=== PATIENT | male | born 1995 | race American Indian/Alaskan Native ===

== ENCOUNTER 2017-08-14 22:51 | Inpatient (IN) | payer MEDICAID ==
[2017-08-14] MEDS ORDERED: Naloxone 0.4 mg/ml Inj (Adult) ONE (23:11)
[2017-08-14] MEDS ORDERED: Propofol 10 mg/ml 1,000 MG/100 ML VIAL ONE (23:27)
[2017-08-14 23:30] LABS: BASO # 0.1 K/uL (0.0-0.2); BASO % 0.4 % (0.0-2.0); EOS # 0.1 K/uL (0.0-0.7); EOS % 0.5 % (0.0-4.0); HEMOGLOBIN 13.9 g/dL (12.0-18.0); LYMPH # 1.4 K/uL (1.0-4.3); LYMPH % 8.9 % (20.0-40.0); MEAN CELL VOLUME 86.9 fL (80.0-94.0); MEAN CORPUSCULAR HEMOGLOBIN 28.7 pg (27.0-31.0); MEAN PLATELET VOLUME 7.8 fL (7.2-11.7); MONO # 0.4 K/uL (0.0-0.8); MONO % 2.7 % (0.0-10.0); NEUT # 13.9 K/uL (1.8-7.0); NEUT % 87.5 % (50.0-75.0); PLATELET COUNT 272 K/uL (130-400); RBC 4.85 Mil/uL (4.40-5.90); RED CELL DISTRIBUTION WIDTH 13.7 % (11.5-14.5); WHITE BLOOD COUNT 15.9 K/uL (4.8-10.8)
[2017-08-14] MEDS ORDERED: Piperacill/Tazo 3.375gm in Dex 3.375 GM/50 ML BAG IVPB STA (23:34)
[2017-08-14] MEDS ORDERED: Vancomycin 1 gm/NS 200 ml 1 GM/200 ML BAG IVPB STA (23:34)
[2017-08-14 23:38] LABS: INR 1.1; PROTHROMBIN TIME 12.1 SECONDS (9.7-12.2)
--- NOTE | 2017-08-14 23:39 | C.PDOC ---
History Of Present Illness 21 y/o male with a past medical history of substance abuse presents via EMS, found at home in respiratory distress. Family found patient foaming at the mouth at home. Per family patient has a history of opiate abuse. Narcan given without success. Patient appears to be hypoxic, tachypnic, and agitated on arrival. Minimal history provided. Patient intubated upon arrival. Time Seen by Provider: 08/14/17 23:02 Chief Complaint (Nursing): Respiratory Distress History Per: Patient History/Exam Limitations: clinical condition (in respiratory distress) Onset/Duration Of Symptoms: Mins Current Symptoms Are (Timing): Still Present Additional History Per: Family Past Medical History Reviewed: Historical Data, Nursing Documentation, Vital Signs Vital Signs: Last Vital Signs Temp 99.0 F 08/16/17 16:00 Pulse 72 08/17/17 09:00 Resp 21 08/17/17 09:00 BP 127/61 08/17/17 08:05 Pulse Ox 100 08/17/17 09:00 - Medical History Other PMH: Substance abuse Family History: States: No Known Family Hx - Social History Hx Substance Use: Yes (opiate abuse) Review Of Systems Review Of Systems: ROS cannot be obtained secondary to pt's inabilty to answer questions. Physical Exam - Physical Exam Appears: In Acute Distress, Other (Tachypnic, ill-appearing) Skin: Warm, Dry Head: Atraumatic, Normacephalic Eye(s): bilateral: PERRL, EOMI Nose: Normal Neck: Normal ROM, Supple Chest: Symmetrical Cardiovascular: Rhythm Regular Respiratory: Other (Coarse breath sounds bilaterally) Gastrointestinal/Abdominal: Soft, No Tenderness, No Distention Extremity: Normal ROM, No Tenderness, Other (Right ankle: wound w/ purulent drainage) ED Course And Treatment - Laboratory Results Result Diagrams: 08/17/17 01:44 08/17/17 01:44 ECG: Interpreted By Me, Viewed By Me ECG Rhythm: Sinus Tachycardia (at 102) O2 Sat by Pulse Oximetry: 65 Pulse Ox Interpretation: Abnormal - Radiology CXR: Interpreted by Me CXR Interpretation: Yes: Infiltrates Critical Care Time - Critical Care Note Total Time (in mins): 45 Documented critical care: time excludes all time spent performing seperately billable procedures. Medical Decision Making Medical Decision Making: Pt intubated on arrival. ro sepsis, overdose, tox - labs imaging pending Time: 23:03 Initial Plan: * EKG * VBG * Acetaminophen * Alcohol serum * Urine drug screen * Salicylate * Lipase * CMP * Troponin I * Pro-BNP * CBC * PTT * Prothrombin time * Chest x-ray * IV zosyn and vancomcin initiated * X-rays of right ankle and tib/fib pending 00:00 Discussed case w/ Dr. Hardy and dr michael youth leader on-call, patient admitted to ICU for respiratory failure, overdose, pneumonia, and infected leg wound. pt with large pna. antibiobtics dosed code sepsis called. Disposition Discussed With Dr.: Aniceto Hardy Doctor Will See Patient In The: Hospital Counseled Patient/Family Regarding: Studies Performed, Diagnosis - Disposition Disposition: HOSPITALIZED Disposition Time: 00:04 Condition: CRITICAL - Clinical Impression Clinical Impression: Respiratory failure, Overdose, Pneumonia - Scribe Statement The provider has reviewed the documentation as recorded by the Nica Turk Provider Attestation: All medical record entries made by the Candiceibjimbo were at my direction and personally dictated by me. I have reviewed the chart and agree that the record accurately reflects my personal performance of the history, physical exam, medical decision making, and the department course for this patient. I have also personally directed, reviewed, and agree with the discharge instructions and disposition. Decision To Admit - Pt Status Changed To: Hospital Disposition Of: Inpatient - Admit Certification Admit to Inpatient:: After my assessment, the patient will require hospitalization for at least two midnights. This is because of the severity of symptoms shown, intensity of services needed, and/or the medical risk in this patient being treated as an outpatient. - InPatient: Physician Admission Certification: I certify that this patient requires 2 or more midnights of care for the following reason:: resp failure intubated - . Bed Request Type: ICU Admitting Physician: Aniceto Hardy Patient Diagnosis: Respiratory failure, Overdose, Pneumonia
[2017-08-14 23:42] LABS: ACETAMINOPHEN < 10.0 ug/mL (10.0-30.0); SALICYLATE < 1.0 mg/dL 1
[2017-08-14 23:44] LABS: ALB/GLOB RATIO 0.9 (1.0-2.1); ALBUMIN 3.9 g/dL (3.5-5.0); ALT/SGPT 46 U/L (21-72); AST/SGOT 70 U/L (17-59); BLOOD UREA NITROGEN 16 mg/dL (9-20); CALCIUM 8.3 mg/dl (8.6-10.4); GFR AFRICAN-AMERICAN > 60; GFR NON-AFRICAN AMERICAN 54; LIPASE 28 U/L (23-300)
[2017-08-14 23:48] LABS: VENOUS BLOOD GAS BASE EXCESS -0.5 mmol/L (0.0-2.0); VENOUS BLOOD GAS PCO2 86 mmHg (40-60); VENOUS BLOOD GAS PO2 16 mm/Hg (30-55); VENOUS BLOOD PH 7.16 (7.32-7.43)
[2017-08-14] MEDS ORDERED: Sodium Chloride 0.9% 1,000 ML IV ONE (23:48)
[2017-08-14 23:55] LABS: BANDS 8 % (0-2); LYMPHOCYTE 10 % (20-40); MONOCYTE 3 % (0-10); NEUTROPHIL 79 % (50-75); TOTAL CELLS COUNTED 100
[2017-08-14 23:56] LABS: PLATELET ESTIMATE NORMAL (NORMAL)
[2017-08-15 00:03] LABS: BARBITURATES, UR NEGATIVE (NEGATIVE)
[2017-08-15 00:09] LABS: BENZODIAZEPINES, UR NEGATIVE (NEGATIVE)
[2017-08-15 00:14] LABS: SQUAMOUS EPITHIAL 9 /hpf (0-5); URINE BILIRUBIN NEGATIVE (NEGATIVE); URINE BLOOD NEGATIVE (NEGATIVE); URINE CLARITY Hazy (Clear); URINE COLOR Yellow (YELLOW); URINE GLUCOSE (UA) 1+ mg/dL (Normal); URINE HYALINE CAST 0-2 /lpf (0-2); URINE LEUKOCYTE ESTERASE NEG Leu/uL (Negative); URINE PROTEIN 2+ mg/dL (NEGATIVE); URINE UROBILINOGEN NORMAL mg/dL (0.2-1.0)
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
[2017-08-15] MEDS: Propofol 10 mg/ml 1,000 MG/100 ML VIAL IV PRN ×5 (00:32→20:46)
[2017-08-15] MEDS ORDERED: Piperacillin/Tazobact 3.375 gm 100 ML IVPB ONE (00:33)
[2017-08-15] MEDS ORDERED: Benzoin Compound Tincture (60 ml) ONE (01:20)
[2017-08-15 01:22] LABS: PHENCYCLIDINE, UR NEGATIVE (NEGATIVE)
[2017-08-15 01:23] LABS: OPIATES, UR POSITIVE (NEGATIVE)
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
--- NOTE | 2017-08-15 02:25 | CT ---
EXAM: CT Head Without Intravenous Contrast CLINICAL HISTORY: 21 years old, male; Signs and symptoms; Alteration of consciousness; Other: Loc; Additional info: R/O bleed, loc TECHNIQUE: Axial computed tomography images of the head/brain without intravenous contrast. All CT scans at this facility use one or more dose reduction techniques, viz.: automated exposure control; ma/kV adjustment per patient size (including targeted exams where dose is matched to indication; i.e. head); or iterative reconstruction technique. 802 images are submitted. Coronal and sagittal reformatted images were created and reviewed. Axial reformatted images were created and reviewed. COMPARISON: No relevant prior studies available. FINDINGS: Brain: Unremarkable. No hemorrhage. No significant white matter disease. No edema. Ventricles: Unremarkable. No ventriculomegaly. Bones/joints: Unremarkable. No acute fracture. Soft tissues: Left frontal subcutaneous soft tissue radiopaque density representing calcification. Correlation with clinical data is recommended if radiopaque foreign body is clinically suspected. Sinuses: Patchy sinus disease. Mastoid air cells: Unremarkable. No mastoid effusion. Orbits: The globe and lens are intact. IMPRESSION: No evidence of an acute intracranial hemorrhage, midline shift or mass effect is identified.
--- NOTE | 2017-08-15 02:37 | CT ---
EXAM: CT Chest Without Intravenous Contrast CT Abdomen and Pelvis Without Intravenous Contrast CLINICAL HISTORY: 21 years old, male; Signs and symptoms; Vomiting; Shortness of breath; Additional info: Respiratory failure TECHNIQUE: Axial computed tomography images of the chest, abdomen and pelvis without intravenous contrast. All CT scans at this facility use one or more dose reduction techniques, viz.: automated exposure control; ma/kV adjustment per patient size (including targeted exams where dose is matched to indication; i.e. head); or iterative reconstruction technique.Limitations: Absence of IV contrast decreases sensitivity for detecting vascular and visceral injury and abnormality. Coronal and sagittal reformatted images were created and reviewedof the chest. COMPARISON: No relevant prior studies available. FINDINGS: Artifacts: Limited due to motion and misregistration artifacts. The examination is limited due to lack of contrast and artifact secondary to patient's arms overlying the patient. CHEST: Lungs: There are bilateral nodular parenchymal infiltrates and dense consolidation within posterior right more than left upper lobe and bilateral lower lobes representing pneumonia versus edema versus a combination of both the processes. Pleural space: Moderate bilateral pleural effusions. No pneumothorax. Heart: Unremarkable. No cardiomegaly. No significant pericardial effusion. ABDOMEN: Liver: Unremarkable. Gallbladder and bile ducts: Unremarkable. No ductal dilation. Pancreas: Unremarkable. No ductal dilation. Spleen: Unremarkable. No splenomegaly. Adrenals: Unremarkable. No mass. Kidneys and ureters: The left kidney is not seen. It relation with patient's history of left nephrectomy another etiology is recommended. Right-sided extrarenal pelvis with mild to moderate distention of the renal pelvis. Stomach and bowel: Large amount of stool in the colon. Correlation with patient's clinical history of constipation is recommended. No mucosal thickening. Appendix: Normal appendix. PELVIS: Bladder: There is Liang catheter in a partially distended bladder. Suprapubic anterior abdominal wall radiopacity. Correlation with patient's post surgical etiology is recommended. Reproductive: Unremarkable. CHEST, ABDOMEN and PELVIS: Intraperitoneal space: Unremarkable. No significant fluid collection. No free air. 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 No acute fracture. No dislocation. Soft tissues: Bilateral gynecomastia. Vasculature: Unremarkable. No aortic aneurysm. Lymph nodes: Unremarkable. No enlarged lymph nodes. Tubes, lines and devices: The endotracheal tube is above the yves. IMPRESSION: 1. There are bilateral nodular parenchymal infiltrates and dense consolidation within posterior right more than left upper lobe and bilateral lower lobes representing pneumonia versus edema versus a combination of both the processes. 2. Moderate bilateral pleural effusions. 3.No acute abnormality on this noncontrast CT examination of the abdomen and pelvis .
[2017-08-15 04:23] LABS: BASO % 0.4 % (0.0-2.0); EOS % 0.3 % (0.0-4.0); HEMOGLOBIN 14.7 g/dL (12.0-18.0); LYMPH # 1.1 K/uL (1.0-4.3); LYMPH % 23.6 % (20.0-40.0); MEAN CELL VOLUME 86.1 fL (80.0-94.0); MEAN CORPUSCULAR HEMOGLOBIN 28.5 pg (27.0-31.0); MEAN CORPUSCULAR HGB CONC 33.2 g/dL (33.0-37.0); MEAN PLATELET VOLUME 7.8 fL (7.2-11.7); MONO # 0.2 K/uL (0.0-0.8); MONO % 4.4 % (0.0-10.0); NEUT # 3.4 K/uL (1.8-7.0); NEUT % 71.3 % (50.0-75.0); NRBC % 0.1 % (0.0-2.0); RBC 5.13 Mil/uL (4.40-5.90); RED CELL DISTRIBUTION WIDTH 13.8 % (11.5-14.5); WHITE BLOOD COUNT 4.8 K/uL (4.8-10.8)
[2017-08-15 04:41] LABS: ARTERIAL BLOOD GAS HCO3 22.4 mmol/L (21-28); ARTERIAL BLOOD GAS O2 SAT 97.4 % (95-98); ARTERIAL BLOOD GAS PCO2 57 mm/Hg (35-45); ARTERIAL BLOOD GAS PH 7.25 (7.35-7.45); ARTERIAL BLOOD GAS PO2 81 mm/Hg (80-100); ARTERIAL BLOOD GAS TCO2 26.7 mmol/L (22-28)
[2017-08-15 04:42] LABS: ALB/GLOB RATIO 0.9 (1.0-2.1); ALBUMIN 3.5 g/dL (3.5-5.0); ALT/SGPT 44 U/L (21-72); AST/SGOT 54 U/L (17-59); BLOOD UREA NITROGEN 15 mg/dL (9-20); CALCIUM 7.8 mg/dl (8.6-10.4); GFR AFRICAN-AMERICAN > 60; GFR NON-AFRICAN AMERICAN > 60
[2017-08-15] MEDS ORDERED: MethylPREDNISolone 40 mg Vial IVP SCH (06:00)
[2017-08-15] MEDS: Piperacill/Tazo 3.375gm in Dex 3.375 GM/50 ML BAG IVPB SCH ×3 (06:44→18:19)
--- NOTE | 2017-08-15 07:52 | PCM.PROC ---
Procedures Attestation:: I certify that I have explained the specified Operation(s) or Procedure(s), risks, benefits and reasonable alternatives to the Patient and/or other person responsible. The opportunity was given to ask questions and all questions answered - Intubation Sedative: Etomidate (10mg) Laryngoscope: Speedy (4) ET Tube Size: 8.0 ET Tube Uncuffed: No ET Tube Secured at Depth: 24 ET Tube Secured [place]: Teeth ET Tube Placement Confirmation: Visualized Passing Through Cords, Breath Sounds Equal Bilaterally, No Breath Sounds Over Epigastrum, Confirmation w/Capnometry Procedure Immediate Complications: Difficult Intubation (very long airway) Additional comments: Patient's prior ET was very high could not be advanced, had gurgling noise and tidal volume was variable, hence decision was made to reintubate. Patient's airway was very long and mac 4 blade had to go all the way in to reach base of epiglottis.
--- NOTE | 2017-08-15 08:21 | RAD ---
Chest x-ray single frontal view History: Chest pain. Comparison: None available. Findings: Dense consolidative opacity projecting over right upper to mid lung zone concerning for prominent infiltrate. Posttreatment interval followup is recommended to exclude underlying lesion. Diffuse increased interstitial lung markings suggestive for underlying edema and or infiltrate bilaterally. Linear atelectasis in the left mid lung zone. Questionable small bilateral pleural effusions. Heart size within normal limits. Endotracheal tube extending into the mid thoracic trachea. Suggestion of possible surgical clips in the upper abdomen. Impression: Dense consolidative opacity projecting over right upper to mid lung zone concerning for prominent infiltrate. Posttreatment interval followup is recommended to exclude underlying lesion. Diffuse increased interstitial lung markings suggestive for underlying edema and or infiltrate bilaterally. Linear atelectasis in the left mid lung zone. Questionable small bilateral pleural effusions. Heart size within normal limits. Endotracheal tube extending into the mid thoracic trachea. Suggestion of possible surgical clips in the upper abdomen.
--- NOTE | 2017-08-15 08:32 | RAD ---
Chest x-ray single frontal view History: Endotracheal tube placement. Comparison: 08/14/2017 Findings: Endotracheal tube extending into the mid thoracic trachea. Dense confluent airspace consolidative changes throughout both lungs suggestive for edema and or infiltrate. Moderate bilateral pleural effusions. Heart size within normal limits. Impression: Endotracheal tube extending into the mid thoracic trachea. Dense confluent airspace consolidative changes throughout both lungs suggestive for edema and or infiltrate. Moderate bilateral pleural effusions.
--- NOTE | 2017-08-15 08:33 | RAD ---
Chest x-ray single frontal view History: Follow-up. Comparison: 08/15/2017 Findings: NG tube extending into the stomach. Other lines and tubes in stable position. Persistent diffuse bilateral reticular airspace opacities throughout both lungs. Heart size within normal limits. Impression: Interval placement of a nasogastric tube. Otherwise no significant interval change
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
--- NOTE | 2017-08-15 09:31 | CP.CCUPN ---
<Janet Licona - Last Filed: 08/15/17 18:23> CCU Subjective - Physician Review Subjective (Free Text): 08/15/17 09:30 Patient seen and examined at bedside. Per nursing, patient spiked fever of 103 this morning. Patient is currently intubated and sedated on propofol. Patient's mother was at the bedside. She states that the patient has been having puss coming from his right ankle for 6 months to 1 year. He was recently released from [facility] on . Patient opens his eyes to verbal stimuli, moves all extremities. ROS not obtained. CCU Objective - Vital Signs / Intake & Output Vital Signs (Last 4 hours): Vital Signs Temp Pulse Resp BP Pulse Ox 08/15/17 09:10 111 H 21 98 08/15/17 09:00 112 H 21 119/45 L 98 08/15/17 08:50 115 H 25 H 95 08/15/17 08:40 120 H 12 99 08/15/17 08:30 116 H 22 97 08/15/17 08:20 117 H 22 96 08/15/17 08:10 127 H 22 96 08/15/17 08:05 118 H 20 129/57 L 96 08/15/17 08:00 103 F H 123 H 21 120/57 L 96 08/15/17 07:00 114 H 21 132/61 97 08/15/17 06:16 100.5 F H 08/15/17 06:10 109 H 23 100 08/15/17 06:05 105 H 24 132/61 100 08/15/17 06:00 107 H 24 100 08/15/17 05:50 109 H 24 100 08/15/17 05:40 107 H 25 H 100 08/15/17 05:38 65 L Intake and Output (Last 8hrs): Intake & Output 08/14/17 08/15/17 08/15/17 22:59 06:59 14:59 Intake Total 157.6 28.8 Output Total 685 Balance -527.4 28.8 Weight 77.111 kg 97.522 kg Intake: IV 100 Intake, IV Amount 57.6 28.8 Right Antecubital 57.6 28.8 Output: Urine 485 Urethral (Liang) 485 Emesis 200 Other: Voiding Method Indwelling Catheter - Physical Exam Other physical findings (Free Text): - Constitutional Appears: Non-toxic, no acute distress - Head Exam Head Exam: NORMAL INSPECTION - Eye Exam Eye Exam: EOMI, PERRL - ENT Exam ENT Exam: Mucous Membranes Moist - Respiratory Exam Respiratory Exam: Decreased Breath Sounds, Rales, Rhonchi Additional comments: intubated and sedated - GI/Abdominal Exam GI & Abdominal Exam: Soft, Normal Bowel Sounds. absent: Distended, Firm, Guarding, Rigid, Rebound - Extremities Exam Extremities Exam: Pedal Edema, Tenderness Additional comments: prevalon boots, Right ankle dressing intact, +RLE edema - Neurological Exam Neurological Exam: Awake - Skin Skin Exam: Normal Color, Warm - Medications Active Medications: Active Medications Generic Name Dose Route Start Last Admin Trade Name Freq PRN Reason Stop Dose Admin Acetaminophen 650 mg 08/15/17 08:17 Tylenol 650 Mg Supp TX Q6 PRN Temperature Famotidine 20 mg 08/15/17 00:45 08/15/17 01:13 Pepcid IVP 20 mg Q12 ZAINA Administration Heparin Sodium (Porcine) 5,000 units 08/15/17 00:45 08/15/17 06:00 Heparin SC 5,000 units Q8 ZAINA Administration Propofol 1,000 mg in 100 mls @ 7.2 mls/hr 08/14/17 23:56 08/15/17 05:57 Diprivan IV 30 mcg/kg/min .[id number] PRN 14.4 mls/hr TITRATE PER MD ORDER Titration Protocol 15 MCG/KG/MIN Piperacillin Sod/Tazobactam Sod 3.375 gm in 50 mls @ 100 mls/hr 08/15/17 07: 00 08/15/17 06:44 Zosyn 3.375 Gm Iv Premix IVPB 100 mls/hr Q6H ZAINA Administration Protocol Vancomycin/Sodium Chloride 1 gm in 200 mls @ 133.333 mls/hr 08/15/17 13:00 Vancomycin 1 Gm/Ns 200 Ml IVPB 08/20/17 13:01 Q12H ZAINA Protocol Doxycycline Hyclate 100 mg/ 100 mls @ 100 mls/hr 08/15/17 01:45 08/15/17 03: 18 Sodium Chloride IVPB 100 mls/hr Q12H ZAINA Administration Protocol Methylprednisolone 40 mg 08/15/17 06:00 08/15/17 05:59 Solu-Medrol IVP 40 mg Q8 ZAINA Administration - Patient Studies Lab Studies: Lab Studies 08/15/17 08/15/17 08/15/17 Range/Units 04:30 04:20 04:19 WBC (4.8-10.8) K/uL RBC (4.40-5.90) Mil/uL Hgb (12.0-18.0) g/dL Hct (35.0-51.0) % MCV (80.0-94.0) fL MCH (27.0-31.0) pg MCHC (33.0-37.0) g/dL RDW (11.5-14.5) % Plt Count (130-400) K/uL MPV (7.2-11.7) fL Neut % (Auto) (50.0-75.0) % Lymph % (Auto) (20.0-40.0) % [place] % (Auto) (0.0-10.0) % Eos % (Auto) (0.0-4.0) % Baso % (Auto) (0.0-2.0) % Neut # (Auto) (1.8-7.0) K/uL Lymph # (Auto) (1.0-4.3) K/uL [place] # (Auto) (0.0-0.8) K/uL Eos # (Auto) (0.0-0.7) K/uL Baso # (Auto) (0.0-0.2) K/uL Neutrophils % (Manual) (50-75) % Band Neutrophils % (0-2) % Lymphocytes % (Manual) (20-40) % Monocytes % (Manual) (0-10) % Platelet Estimate (NORMAL) PT (9.7-12.2) SECONDS INR APTT (21-34) SECONDS Puncture Site Rb pCO2 57 H (35-45) mm/Hg pO2 81 (30-55) mm/Hg HCO3 22.4 (21-28) mmol/L ABG pH 7.25 L (7.35-7.45) ABG Total CO2 26.7 (22-28) mmol/L ABG O2 Saturation 97.4 (95-98) % ABG Base Excess -3.1 L (-2.0-3.0) mmol/L Haris Test Na ABG Potassium 3.8 (3.6-5.2) mmol/L VBG pH (7.32-7.43) VBG pCO2 (40-60) mmHg VBG HCO3 mmol/L VBG Total CO2 (22-28) mmol/L VBG O2 Sat (Calc) (40-65) % VBG Base Excess (0.0-2.0) mmol/L VBG Potassium (3.6-5.2) mmol/L A-a O2 Difference 561.0 mm/Hg Respiratory Index 6.9 Glucose 74 L (75-110) mg/dl Lactate 1.0 (0.7-2.1) mmol/L Vent Mode Prvc Mechanical Rate 20 FiO2 100.0 % Tidal Volume 450 PEEP 12 Crit Value Called To Crit Value Called By Crit Value Read Back Blood Gas Notified Time Sodium 141.0 (132-148) mmol/L Potassium (3.6-5.2) mmol/L Chloride 107.0 (98-107) mmol/L Carbon Dioxide (22-30) mmol/L Anion Gap (10-20) BUN (9-20) mg/dL Creatinine (0.8-1.5) mg/dL Est GFR ( Amer) Est GFR (Non-Af Amer) Random Glucose (75-110) mg/dL Lactic Acid 1.8 (0.7-2.1) mmol/L Calcium (8.6-10.4) mg/dl Total Bilirubin (0.2-1.3) mg/dL AST (17-59) U/L ALT (21-72) U/L Alkaline Phosphatase (38-126) U/L Troponin I (0.00-0.120) ng/mL NT-Pro-B Natriuret Pep (0-450) pg/mL Total Protein (6.3-8.3) g/dL Albumin (3.5-5.0) g/dL Globulin (2.2-3.9) gm/dL Albumin/Globulin Ratio (1.0-2.1) Lipase (23-300) U/L Arterial Blood Potassium 3.8 (3.6-5.2) mmol/L Venous Blood Potassium (3.6-5.2) mmol/L Urine Color (YELLOW) Urine Clarity (Clear) Urine pH (5.0-8.0) Ur Specific [place] (1.003-1.030) Urine Protein (NEGATIVE) mg/dL Urine Glucose (UA) (Normal) mg/dL Urine Ketones (NEGATIVE) mg/dL Urine Blood (NEGATIVE) Urine Nitrate (NEGATIVE) Urine Bilirubin (NEGATIVE) Urine Urobilinogen (0.2-1.0) mg/dL Ur Leukocyte Esterase (Negative) Chao/uL Urine WBC (Auto) (0-5) /hpf Urine RBC (Auto) (0-3) /hpf Ur Squamous Epith Cells (0-5) /hpf Hyaline Casts (0-2) /lpf Salicylates mg/dL 1 Urine Opiates Screen (NEGATIVE) Urine Methadone Screen (NEGATIVE) Acetaminophen < 10.0 L (10.0-30.0) ug/mL Ur Barbiturates Screen (NEGATIVE) Ur Phencyclidine Scrn (NEGATIVE) Ur Amphetamines Screen (NEGATIVE) U Benzodiazepines Scrn (NEGATIVE) U Oth Cocaine Metabols (NEGATIVE) U Cannabinoids Screen (NEGATIVE) Alcohol, Quantitative (0-10) mg/dl 08/15/17 08/15/17 08/15/17 Range/Units 04:19 04:19 01:43 WBC 4.8 D (4.8-10.8) K/uL RBC 5.13 (4.40-5.90) Mil/uL Hgb 14.7 (12.0-18.0) g/dL Hct 44.2 (35.0-51.0) % MCV 86.1 (80.0-94.0) fL MCH 28.5 (27.0-31.0) pg MCHC 33.2 (33.0-37.0) g/dL RDW 13.8 (11.5-14.5) % Plt Count 233 (130-400) K/uL MPV 7.8 (7.2-11.7) fL Neut % (Auto) 71.3 (50.0-75.0) % Lymph % (Auto) 23.6 (20.0-40.0) % [place] % (Auto) 4.4 (0.0-10.0) % Eos % (Auto) 0.3 (0.0-4.0) % Baso % (Auto) 0.4 (0.0-2.0) % Neut # (Auto) 3.4 (1.8-7.0) K/uL Lymph # (Auto) 1.1 (1.0-4.3) K/uL [place] # (Auto) 0.2 (0.0-0.8) K/uL Eos # (Auto) 0.0 (0.0-0.7) K/uL Baso # (Auto) 0.0 (0.0-0.2) K/uL Neutrophils % (Manual) (50-75) % Band Neutrophils % (0-2) % Lymphocytes % (Manual) (20-40) % Monocytes % (Manual) (0-10) % Platelet Estimate (NORMAL) PT (9.7-12.2) SECONDS INR APTT (21-34) SECONDS Puncture Site pCO2 (35-45) mm/Hg pO2 (30-55) mm/Hg HCO3 (21-28) mmol/L ABG pH (7.35-7.45) ABG Total CO2 (22-28) mmol/L ABG O2 Saturation (95-98) % ABG Base Excess (-2.0-3.0) mmol/L Haris Test ABG Potassium (3.6-5.2) mmol/L VBG pH (7.32-7.43) VBG pCO2 (40-60) mmHg VBG HCO3 mmol/L VBG Total CO2 (22-28) mmol/L VBG O2 Sat (Calc) (40-65) % VBG Base Excess (0.0-2.0) mmol/L VBG Potassium (3.6-5.2) mmol/L A-a O2 Difference mm/Hg Respiratory Index Glucose (75-110) mg/dl Lactate (0.7-2.1) mmol/L Vent Mode Mechanical Rate FiO2 % Tidal Volume PEEP Crit Value Called To Crit Value Called By Crit Value Read Back Blood Gas Notified Time Sodium 144 (132-148) mmol/L Potassium 4.8 (3.6-5.2) mmol/L Chloride 105 (98-107) mmol/L Carbon Dioxide 28 (22-30) mmol/L Anion Gap 16 (10-20) BUN 15 (9-20) mg/dL Creatinine 1.3 (0.8-1.5) mg/dL Est GFR ( Amer) > 60 Est GFR (Non-Af Amer) > 60 Random Glucose 70 L (75-110) mg/dL Lactic Acid 1.4 (0.7-2.1) mmol/L Calcium 7.8 L (8.6-10.4) mg/dl Total Bilirubin 1.0 (0.2-1.3) mg/dL AST 54 (17-59) U/L ALT 44 (21-72) U/L Alkaline Phosphatase 130 H (38-126) U/L Troponin I (0.00-0.120) ng/mL NT-Pro-B Natriuret Pep (0-450) pg/mL Total Protein 7.6 (6.3-8.3) g/dL Albumin 3.5 (3.5-5.0) g/dL Globulin 4.1 H (2.2-3.9) gm/dL Albumin/Globulin Ratio 0.9 L (1.0-2.1) Lipase (23-300) U/L Arterial Blood Potassium (3.6-5.2) mmol/L Venous Blood Potassium (3.6-5.2) mmol/L Urine Color (YELLOW) Urine Clarity (Clear) Urine pH (5.0-8.0) Ur Specific [place] (1.003-1.030) Urine Protein (NEGATIVE) mg/dL Urine Glucose (UA) (Normal) mg/dL Urine Ketones (NEGATIVE) mg/dL Urine Blood (NEGATIVE) Urine Nitrate (NEGATIVE) Urine Bilirubin (NEGATIVE) Urine Urobilinogen (0.2-1.0) mg/dL Ur Leukocyte Esterase (Negative) Chao/uL Urine WBC (Auto) (0-5) /hpf Urine RBC (Auto) (0-3) /hpf Ur Squamous Epith Cells (0-5) /hpf Hyaline Casts (0-2) /lpf Salicylates mg/dL 1 Urine Opiates Screen (NEGATIVE) Urine Methadone Screen (NEGATIVE) Acetaminophen (10.0-30.0) ug/mL Ur Barbiturates Screen (NEGATIVE) Ur Phencyclidine Scrn (NEGATIVE) Ur Amphetamines Screen (NEGATIVE) U Benzodiazepines Scrn (NEGATIVE) U Oth Cocaine Metabols (NEGATIVE) U Cannabinoids Screen (NEGATIVE) Alcohol, Quantitative (0-10) mg/dl 08/15/17 08/14/17 08/14/17 Range/Units 00:06 23:44 23:40 WBC (4.8-10.8) K/uL RBC (4.40-5.90) Mil/uL Hgb (12.0-18.0) g/dL Hct (35.0-51.0) % MCV (80.0-94.0) fL MCH (27.0-31.0) pg MCHC (33.0-37.0) g/dL RDW (11.5-14.5) % Plt Count (130-400) K/uL MPV (7.2-11.7) fL Neut % (Auto) (50.0-75.0) % Lymph % (Auto) (20.0-40.0) % [place] % (Auto) (0.0-10.0) % Eos % (Auto) (0.0-4.0) % Baso % (Auto) (0.0-2.0) % Neut # (Auto) (1.8-7.0) K/uL Lymph # (Auto) (1.0-4.3) K/uL [place] # (Auto) (0.0-0.8) K/uL Eos # (Auto) (0.0-0.7) K/uL Baso # (Auto) (0.0-0.2) K/uL Neutrophils % (Manual) (50-75) % Band Neutrophils % (0-2) % Lymphocytes % (Manual) (20-40) % Monocytes % (Manual) (0-10) % Platelet Estimate (NORMAL) PT (9.7-12.2) SECONDS INR APTT (21-34) SECONDS Puncture Site pCO2 (35-45) mm/Hg pO2 16 L (30-55) mm/Hg HCO3 (21-28) mmol/L ABG pH (7.35-7.45) ABG Total CO2 (22-28) mmol/L ABG O2 Saturation (95-98) % ABG Base Excess (-2.0-3.0) mmol/L Haris Test ABG Potassium (3.6-5.2) mmol/L VBG pH 7.16 L* (7.32-7.43) VBG pCO2 86 H* (40-60) mmHg VBG HCO3 22.2 mmol/L VBG Total CO2 33.3 H (22-28) mmol/L VBG O2 Sat (Calc) 27.6 L (40-65) % VBG Base Excess -0.5 L (0.0-2.0) mmol/L VBG Potassium 4.0 (3.6-5.2) mmol/L A-a O2 Difference mm/Hg Respiratory Index Glucose 183 H (75-110) mg/dl Lactate 2.5 H (0.7-2.1) mmol/L Vent Mode Mechanical Rate FiO2 % Tidal Volume PEEP Crit Value Called To Maritza higgins/rn Crit Value Called By Carlos hutchison/rt Crit Value Read Back Y Blood Gas Notified Time 2350 Sodium 141.0 (132-148) mmol/L Potassium (3.6-5.2) mmol/L Chloride 103.0 (98-107) mmol/L Carbon Dioxide (22-30) mmol/L Anion Gap (10-20) BUN (9-20) mg/dL Creatinine (0.8-1.5) mg/dL Est GFR ( Amer) Est GFR (Non-Af Amer) Random Glucose (75-110) mg/dL Lactic Acid (0.7-2.1) mmol/L Calcium (8.6-10.4) mg/dl Total Bilirubin (0.2-1.3) mg/dL AST (17-59) U/L ALT (21-72) U/L Alkaline Phosphatase (38-126) U/L Troponin I (0.00-0.120) ng/mL NT-Pro-B Natriuret Pep (0-450) pg/mL Total Protein (6.3-8.3) g/dL Albumin (3.5-5.0) g/dL Globulin (2.2-3.9) gm/dL Albumin/Globulin Ratio (1.0-2.1) Lipase (23-300) U/L Arterial Blood Potassium (3.6-5.2) mmol/L Venous Blood Potassium 4.0 (3.6-5.2) mmol/L Urine Color Yellow (YELLOW) Urine Clarity Hazy (Clear) Urine pH 6.0 (5.0-8.0) Ur Specific [place] 1.017 (1.003-1.030) Urine Protein 2+ H (NEGATIVE) mg/dL Urine Glucose (UA) 1+ H (Normal) mg/dL Urine Ketones Negative (NEGATIVE) mg/dL Urine Blood Negative (NEGATIVE) Urine Nitrate Negative (NEGATIVE) Urine Bilirubin Negative (NEGATIVE) Urine Urobilinogen Normal (0.2-1.0) mg/dL Ur Leukocyte Esterase Neg (Negative) Chao/uL Urine WBC (Auto) 11 H (0-5) /hpf Urine RBC (Auto) 11 H (0-3) /hpf Ur Squamous Epith Cells 9 H (0-5) /hpf Hyaline Casts 0-2 (0-2) /lpf Salicylates mg/dL 1 Urine Opiates Screen Positive H (NEGATIVE) Urine Methadone Screen Negative (NEGATIVE) Acetaminophen (10.0-30.0) ug/mL Ur Barbiturates Screen Negative (NEGATIVE) Ur Phencyclidine Scrn Negative (NEGATIVE) Ur Amphetamines Screen Negative (NEGATIVE) U Benzodiazepines Scrn Negative (NEGATIVE) U Oth Cocaine Metabols Negative (NEGATIVE) U Cannabinoids Screen Positive H (NEGATIVE) Alcohol, Quantitative (0-10) mg/dl 08/14/17 08/14/17 08/14/17 Range/Units 23:27 23:27 23:27 WBC (4.8-10.8) K/uL RBC (4.40-5.90) Mil/uL Hgb (12.0-18.0) g/dL Hct (35.0-51.0) % MCV (80.0-94.0) fL MCH (27.0-31.0) pg MCHC (33.0-37.0) g/dL RDW (11.5-14.5) % Plt Count (130-400) K/uL MPV (7.2-11.7) fL Neut % (Auto) (50.0-75.0) % Lymph % (Auto) (20.0-40.0) % [place] % (Auto) (0.0-10.0) % Eos % (Auto) (0.0-4.0) % Baso % (Auto) (0.0-2.0) % Neut # (Auto) (1.8-7.0) K/uL Lymph # (Auto) (1.0-4.3) K/uL [place] # (Auto) (0.0-0.8) K/uL Eos # (Auto) (0.0-0.7) K/uL Baso # (Auto) (0.0-0.2) K/uL Neutrophils % (Manual) (50-75) % Band Neutrophils % (0-2) % Lymphocytes % (Manual) (20-40) % Monocytes % (Manual) (0-10) % Platelet Estimate (NORMAL) PT 12.1 (9.7-12.2) SECONDS INR 1.1 APTT 32 (21-34) SECONDS Puncture Site pCO2 (35-45) mm/Hg pO2 (30-55) mm/Hg HCO3 (21-28) mmol/L ABG pH (7.35-7.45) ABG Total CO2 (22-28) mmol/L ABG O2 Saturation (95-98) % ABG Base Excess (-2.0-3.0) mmol/L Haris Test ABG Potassium (3.6-5.2) mmol/L VBG pH (7.32-7.43) VBG pCO2 (40-60) mmHg VBG HCO3 mmol/L VBG Total CO2 (22-28) mmol/L VBG O2 Sat (Calc) (40-65) % VBG Base Excess (0.0-2.0) mmol/L VBG Potassium (3.6-5.2) mmol/L A-a O2 Difference mm/Hg Respiratory Index Glucose (75-110) mg/dl Lactate (0.7-2.1) mmol/L Vent Mode Mechanical Rate FiO2 % Tidal Volume PEEP Crit Value Called To Crit Value Called By Crit Value Read Back Blood Gas Notified Time Sodium 143 (132-148) mmol/L Potassium 4.0 (3.6-5.2) mmol/L Chloride 101 (98-107) mmol/L Carbon Dioxide 28 (22-30) mmol/L Anion Gap 18 (10-20) BUN 16 (9-20) mg/dL Creatinine 1.6 H (0.8-1.5) mg/dL Est GFR ( Amer) > 60 Est GFR (Non-Af Amer) 54 Random Glucose 180 H (75-110) mg/dL Lactic Acid (0.7-2.1) mmol/L Calcium 8.3 L (8.6-10.4) mg/dl Total Bilirubin 0.6 (0.2-1.3) mg/dL AST 70 H (17-59) U/L ALT 46 (21-72) U/L Alkaline Phosphatase 132 H (38-126) U/L Troponin I 0.0130 (0.00-0.120) ng/mL NT-Pro-B Natriuret Pep 69.0 (0-450) pg/mL Total Protein 8.3 (6.3-8.3) g/dL Albumin 3.9 (3.5-5.0) g/dL Globulin 4.4 H (2.2-3.9) gm/dL Albumin/Globulin Ratio 0.9 L (1.0-2.1) Lipase 28 (23-300) U/L Arterial Blood Potassium (3.6-5.2) mmol/L Venous Blood Potassium (3.6-5.2) mmol/L Urine Color (YELLOW) Urine Clarity (Clear) Urine pH (5.0-8.0) Ur Specific [place] (1.003-1.030) Urine Protein (NEGATIVE) mg/dL Urine Glucose (UA) (Normal) mg/dL Urine Ketones (NEGATIVE) mg/dL Urine Blood (NEGATIVE) Urine Nitrate (NEGATIVE) Urine Bilirubin (NEGATIVE) Urine Urobilinogen (0.2-1.0) mg/dL Ur Leukocyte Esterase (Negative) Chao/uL Urine WBC (Auto) (0-5) /hpf Urine RBC (Auto) (0-3) /hpf Ur Squamous Epith Cells (0-5) /hpf Hyaline Casts (0-2) /lpf Salicylates < 1.0 mg/dL 1 Urine Opiates Screen (NEGATIVE) Urine Methadone Screen (NEGATIVE) Acetaminophen < 10.0 L (10.0-30.0) ug/mL Ur Barbiturates Screen (NEGATIVE) Ur Phencyclidine Scrn (NEGATIVE) Ur Amphetamines Screen (NEGATIVE) U Benzodiazepines Scrn (NEGATIVE) U Oth Cocaine Metabols (NEGATIVE) U Cannabinoids Screen (NEGATIVE) Alcohol, Quantitative < 10 (0-10) mg/dl 08/14/17 Range/Units 23:27 WBC 15.9 H (4.8-10.8) K/uL RBC 4.85 (4.40-5.90) Mil/uL Hgb 13.9 (12.0-18.0) g/dL Hct 42.2 (35.0-51.0) % MCV 86.9 (80.0-94.0) fL MCH 28.7 (27.0-31.0) pg MCHC 33.0 (33.0-37.0) g/dL RDW 13.7 (11.5-14.5) % Plt Count 272 (130-400) K/uL MPV 7.8 (7.2-11.7) fL Neut % (Auto) 87.5 H (50.0-75.0) % Lymph % (Auto) 8.9 L (20.0-40.0) % [place] % (Auto) 2.7 (0.0-10.0) % Eos % (Auto) 0.5 (0.0-4.0) % Baso % (Auto) 0.4 (0.0-2.0) % Neut # (Auto) 13.9 H (1.8-7.0) K/uL Lymph # (Auto) 1.4 (1.0-4.3) K/uL [place] # (Auto) 0.4 (0.0-0.8) K/uL Eos # (Auto) 0.1 (0.0-0.7) K/uL Baso # (Auto) 0.1 (0.0-0.2) K/uL Neutrophils % (Manual) 79 H (50-75) % Band Neutrophils % 8 H (0-2) % Lymphocytes % (Manual) 10 L (20-40) % Monocytes % (Manual) 3 (0-10) % Platelet Estimate Normal (NORMAL) PT (9.7-12.2) SECONDS INR APTT (21-34) SECONDS Puncture Site pCO2 (35-45) mm/Hg pO2 (30-55) mm/Hg HCO3 (21-28) mmol/L ABG pH (7.35-7.45) ABG Total CO2 (22-28) mmol/L ABG O2 Saturation (95-98) % ABG Base Excess (-2.0-3.0) mmol/L Haris Test ABG Potassium (3.6-5.2) mmol/L VBG pH (7.32-7.43) VBG pCO2 (40-60) mmHg VBG HCO3 mmol/L VBG Total CO2 (22-28) mmol/L VBG O2 Sat (Calc) (40-65) % VBG Base Excess (0.0-2.0) mmol/L VBG Potassium (3.6-5.2) mmol/L A-a O2 Difference mm/Hg Respiratory Index Glucose (75-110) mg/dl Lactate (0.7-2.1) mmol/L Vent Mode Mechanical Rate FiO2 % Tidal Volume PEEP Crit Value Called To Crit Value Called By Crit Value Read Back Blood Gas Notified Time Sodium (132-148) mmol/L Potassium (3.6-5.2) mmol/L Chloride (98-107) mmol/L Carbon Dioxide (22-30) mmol/L Anion Gap (10-20) BUN (9-20) mg/dL Creatinine (0.8-1.5) mg/dL Est GFR ( Amer) Est GFR (Non-Af Amer) Random Glucose (75-110) mg/dL Lactic Acid (0.7-2.1) mmol/L Calcium (8.6-10.4) mg/dl Total Bilirubin (0.2-1.3) mg/dL AST (17-59) U/L ALT (21-72) U/L Alkaline Phosphatase (38-126) U/L Troponin I (0.00-0.120) ng/mL NT-Pro-B Natriuret Pep (0-450) pg/mL Total Protein (6.3-8.3) g/dL Albumin (3.5-5.0) g/dL Globulin (2.2-3.9) gm/dL Albumin/Globulin Ratio (1.0-2.1) Lipase (23-300) U/L Arterial Blood Potassium (3.6-5.2) mmol/L Venous Blood Potassium (3.6-5.2) mmol/L Urine Color (YELLOW) Urine Clarity (Clear) Urine pH (5.0-8.0) Ur Specific [place] (1.003-1.030) Urine Protein (NEGATIVE) mg/dL Urine Glucose (UA) (Normal) mg/dL Urine Ketones (NEGATIVE) mg/dL Urine Blood (NEGATIVE) Urine Nitrate (NEGATIVE) Urine Bilirubin (NEGATIVE) Urine Urobilinogen (0.2-1.0) mg/dL Ur Leukocyte Esterase (Negative) Chao/uL Urine WBC (Auto) (0-5) /hpf Urine RBC (Auto) (0-3) /hpf Ur Squamous Epith Cells (0-5) /hpf Hyaline Casts (0-2) /lpf Salicylates mg/dL 1 Urine Opiates Screen (NEGATIVE) Urine Methadone Screen (NEGATIVE) Acetaminophen (10.0-30.0) ug/mL Ur Barbiturates Screen (NEGATIVE) Ur Phencyclidine Scrn (NEGATIVE) Ur Amphetamines Screen (NEGATIVE) U Benzodiazepines Scrn (NEGATIVE) U Oth Cocaine Metabols (NEGATIVE) U Cannabinoids Screen (NEGATIVE) Alcohol, Quantitative (0-10) mg/dl Laboratory Results - last 24 hr 08/14/17 08/14/17 08/14/17 23:27 23:27 23:27 WBC 15.9 H RBC 4.85 Hgb 13.9 Hct 42.2 MCV 86.9 MCH 28.7 MCHC 33.0 RDW 13.7 Plt Count 272 MPV 7.8 Neut % (Auto) 87.5 H Lymph % (Auto) 8.9 L [place] % (Auto) 2.7 Eos % (Auto) 0.5 Baso % (Auto) 0.4 Neut # (Auto) 13.9 H Lymph # (Auto) 1.4 Dewitt # (Auto) 0.4 Eos # (Auto) 0.1 Baso # (Auto) 0.1 Neutrophils % (Manual) 79 H Band Neutrophils % 8 H Lymphocytes % (Manual) 10 L Monocytes % (Manual) 3 Platelet Estimate Normal PT 12.1 INR 1.1 APTT 32 Puncture Site pCO2 pO2 HCO3 ABG pH ABG Total CO2 ABG O2 Saturation ABG Base Excess [place] Test ABG Potassium VBG pH VBG pCO2 VBG HCO3 VBG Total CO2 VBG O2 Sat (Calc) VBG Base Excess VBG Potassium A-a O2 Difference Respiratory Index Glucose Lactate Vent Mode Mechanical Rate FiO2 Tidal Volume PEEP Crit Value Called To Crit Value Called By Crit Value Read Back Blood Gas Notified Time Sodium 143 Potassium 4.0 Chloride 101 Carbon Dioxide 28 Anion Gap 18 BUN 16 Creatinine 1.6 H Est GFR ( Amer) > 60 Est GFR (Non-Af Amer) 54 Random Glucose 180 H Lactic Acid Calcium 8.3 L Total Bilirubin 0.6 AST 70 H ALT 46 Alkaline Phosphatase 132 H Troponin I 0.0130 NT-Pro-B Natriuret Pep 69.0 Total Protein 8.3 Albumin 3.9 Globulin 4.4 H Albumin/Globulin Ratio 0.9 L Lipase 28 Arterial Blood Potassium Venous Blood Potassium Urine Color Urine Clarity Urine pH Ur Specific [place] Urine Protein Urine Glucose (UA) Urine Ketones Urine Blood Urine Nitrate Urine Bilirubin Urine Urobilinogen Ur Leukocyte Esterase Urine WBC (Auto) Urine RBC (Auto) Ur Squamous Epith Cells Hyaline Casts Salicylates Urine Opiates Screen Urine Methadone Screen Acetaminophen Ur Barbiturates Screen Ur Phencyclidine Scrn Ur Amphetamines Screen U Benzodiazepines Scrn U Oth Cocaine Metabols U Cannabinoids Screen Alcohol, Quantitative < 10 08/14/17 08/14/17 08/14/17 23:27 23:40 23:44 WBC RBC Hgb Hct MCV MCH MCHC RDW Plt Count MPV Neut % (Auto) Lymph % (Auto) [place] % (Auto) Eos % (Auto) Baso % (Auto) Neut # (Auto) Lymph # (Auto) [place] # (Auto) Eos # (Auto) Baso # (Auto) Neutrophils % (Manual) Band Neutrophils % Lymphocytes % (Manual) Monocytes % (Manual) Platelet Estimate PT INR APTT Puncture Site pCO2 pO2 16 L HCO3 ABG pH ABG Total CO2 ABG O2 Saturation ABG Base Excess [place] Test ABG Potassium VBG pH 7.16 L* VBG pCO2 86 H* VBG HCO3 22.2 VBG Total CO2 33.3 H VBG O2 Sat (Calc) 27.6 L VBG Base Excess -0.5 L VBG Potassium 4.0 A-a O2 Difference Respiratory Index Glucose 183 H Lactate 2.5 H Vent Mode Mechanical Rate FiO2 Tidal Volume PEEP Crit Value Called To Maritza higgins/rn Crit Value Called By Carlos hutchison/rt Crit Value Read Back Y Blood Gas Notified Time 2350 Sodium 141.0 Potassium Chloride 103.0 Carbon Dioxide Anion Gap BUN Creatinine Est GFR ( Amer) Est GFR (Non-Af Amer) Random Glucose Lactic Acid Calcium Total Bilirubin AST ALT Alkaline Phosphatase Troponin I NT-Pro-B Natriuret Pep Total Protein Albumin Globulin Albumin/Globulin Ratio Lipase Arterial Blood Potassium Venous Blood Potassium 4.0 Urine Color Urine Clarity Urine pH Ur Specific [place] Urine Protein Urine Glucose (UA) Urine Ketones Urine Blood Urine Nitrate Urine Bilirubin Urine Urobilinogen Ur Leukocyte Esterase Urine WBC (Auto) Urine RBC (Auto) Ur Squamous Epith Cells Hyaline Casts Salicylates < 1.0 Urine Opiates Screen Positive H Urine Methadone Screen Negative Acetaminophen < 10.0 L Ur Barbiturates Screen Negative Ur Phencyclidine Scrn Negative Ur Amphetamines Screen Negative U Benzodiazepines Scrn Negative U Oth Cocaine Metabols Negative U Cannabinoids Screen Positive H Alcohol, Quantitative 08/15/17 08/15/17 08/15/17 00:06 01:43 04:19 WBC 4.8 D RBC 5.13 Hgb 14.7 Hct 44.2 MCV 86.1 MCH 28.5 MCHC 33.2 RDW 13.8 Plt Count 233 MPV 7.8 Neut % (Auto) 71.3 Lymph % (Auto) 23.6 [place] % (Auto) 4.4 Eos % (Auto) 0.3 Baso % (Auto) 0.4 Neut # (Auto) 3.4 Lymph # (Auto) 1.1 [place] # (Auto) 0.2 Eos # (Auto) 0.0 Baso # (Auto) 0.0 Neutrophils % (Manual) Band Neutrophils % Lymphocytes % (Manual) Monocytes % (Manual) Platelet Estimate PT INR APTT Puncture Site pCO2 pO2 HCO3 ABG pH ABG Total CO2 ABG O2 Saturation ABG Base Excess [place] Test ABG Potassium VBG pH VBG pCO2 VBG HCO3 VBG Total CO2 VBG O2 Sat (Calc) VBG Base Excess VBG Potassium A-a O2 Difference Respiratory Index Glucose Lactate Vent Mode Mechanical Rate FiO2 Tidal Volume PEEP Crit Value Called To Crit Value Called By Crit Value Read Back Blood Gas Notified Time Sodium Potassium Chloride Carbon Dioxide Anion Gap BUN Creatinine Est GFR ( Amer) Est GFR (Non-Af Amer) Random Glucose Lactic Acid 1.4 Calcium Total Bilirubin AST ALT Alkaline Phosphatase Troponin I NT-Pro-B Natriuret Pep Total Protein Albumin Globulin Albumin/Globulin Ratio Lipase Arterial Blood Potassium Venous Blood Potassium Urine Color Yellow Urine Clarity Hazy Urine pH 6.0 Ur Specific [place] 1.017 Urine Protein 2+ H Urine Glucose (UA) 1+ H Urine Ketones Negative Urine Blood Negative Urine Nitrate Negative Urine Bilirubin Negative Urine Urobilinogen Normal Ur Leukocyte Esterase Neg Urine WBC (Auto) 11 H Urine RBC (Auto) 11 H Ur Squamous Epith Cells 9 H Hyaline Casts 0-2 Salicylates Urine Opiates Screen Urine Methadone Screen Acetaminophen Ur Barbiturates Screen Ur Phencyclidine Scrn Ur Amphetamines Screen U Benzodiazepines Scrn U Oth Cocaine Metabols U Cannabinoids Screen Alcohol, Quantitative 08/15/17 08/15/17 08/15/17 04:19 04:19 04:20 WBC RBC Hgb Hct MCV MCH MCHC RDW Plt Count MPV Neut % (Auto) Lymph % (Auto) [place] % (Auto) Eos % (Auto) Baso % (Auto) Neut # (Auto) Lymph # (Auto) [place] # (Auto) Eos # (Auto) Baso # (Auto) Neutrophils % (Manual) Band Neutrophils % Lymphocytes % (Manual) Monocytes % (Manual) Platelet Estimate PT INR APTT Puncture Site pCO2 pO2 HCO3 ABG pH ABG Total CO2 ABG O2 Saturation ABG Base Excess Haris Test ABG Potassium VBG pH VBG pCO2 VBG HCO3 VBG Total CO2 VBG O2 Sat (Calc) VBG Base Excess VBG Potassium A-a O2 Difference Respiratory Index Glucose Lactate Vent Mode Mechanical Rate FiO2 Tidal Volume PEEP Crit Value Called To Crit Value Called By Crit Value Read Back Blood Gas Notified Time Sodium 144 Potassium 4.8 Chloride 105 Carbon Dioxide 28 Anion Gap 16 BUN 15 Creatinine 1.3 Est GFR ( Amer) > 60 Est GFR (Non-Af Amer) > 60 Random Glucose 70 L Lactic Acid 1.8 Calcium 7.8 L Total Bilirubin 1.0 AST 54 ALT 44 Alkaline Phosphatase 130 H Troponin I NT-Pro-B Natriuret Pep Total Protein 7.6 Albumin 3.5 Globulin 4.1 H Albumin/Globulin Ratio 0.9 L Lipase Arterial Blood Potassium Venous Blood Potassium Urine Color Urine Clarity Urine pH Ur Specific [place] Urine Protein Urine Glucose (UA) Urine Ketones Urine Blood Urine Nitrate Urine Bilirubin Urine Urobilinogen Ur Leukocyte Esterase Urine WBC (Auto) Urine RBC (Auto) Ur Squamous Epith Cells Hyaline Casts Salicylates Urine Opiates Screen Urine Methadone Screen Acetaminophen < 10.0 L Ur Barbiturates Screen Ur Phencyclidine Scrn Ur Amphetamines Screen U Benzodiazepines Scrn U Oth Cocaine Metabols U Cannabinoids Screen Alcohol, Quantitative 08/15/17 04:30 WBC RBC Hgb Hct MCV MCH MCHC RDW Plt Count MPV Neut % (Auto) Lymph % (Auto) [place] % (Auto) Eos % (Auto) Baso % (Auto) Neut # (Auto) Lymph # (Auto) [place] # (Auto) Eos # (Auto) Baso # (Auto) Neutrophils % (Manual) Band Neutrophils % Lymphocytes % (Manual) Monocytes % (Manual) Platelet Estimate PT INR APTT Puncture Site Rb pCO2 57 H pO2 81 HCO3 22.4 ABG pH 7.25 L ABG Total CO2 26.7 ABG O2 Saturation 97.4 ABG Base Excess -3.1 L Haris Test Na ABG Potassium 3.8 VBG pH VBG pCO2 VBG HCO3 VBG Total CO2 VBG O2 Sat (Calc) VBG Base Excess VBG Potassium A-a O2 Difference 561.0 Respiratory Index 6.9 Glucose 74 L Lactate 1.0 Vent Mode Prvc Mechanical Rate 20 FiO2 100.0 Tidal Volume 450 PEEP 12 Crit Value Called To Crit Value Called By Crit Value Read Back Blood Gas Notified Time Sodium 141.0 Potassium Chloride 107.0 Carbon Dioxide Anion Gap BUN Creatinine Est GFR ( Amer) Est GFR (Non-Af Amer) Random Glucose Lactic Acid Calcium Total Bilirubin AST ALT Alkaline Phosphatase Troponin I NT-Pro-B Natriuret Pep Total Protein Albumin Globulin Albumin/Globulin Ratio Lipase Arterial Blood Potassium 3.8 Venous Blood Potassium Urine Color Urine Clarity Urine pH Ur Specific [place] Urine Protein Urine Glucose (UA) Urine Ketones Urine Blood Urine Nitrate Urine Bilirubin Urine Urobilinogen Ur Leukocyte Esterase Urine WBC (Auto) Urine RBC (Auto) Ur Squamous Epith Cells Hyaline Casts Salicylates Urine Opiates Screen Urine Methadone Screen Acetaminophen Ur Barbiturates Screen Ur Phencyclidine Scrn Ur Amphetamines Screen U Benzodiazepines Scrn U Oth Cocaine Metabols U Cannabinoids Screen Alcohol, Quantitative EKG/Cardiology Studies: Cardiology / EKG Studies 08/14/17 23:03 ELECTROCARDIOGRAM Stat Comment: Mode Of Transportation: BED Reason For Exam: chest pain Review of Systems - Review of Systems Systems not reviewed;Unavailable: Intubated Critical Care Progress Note - Nutrition Nutrition: Nutrition Category Date Time Status NPO Diet [DIET] Diets 08/15/17 Breakfast Active Assessment/Plan - Assessment and Plan (Free Text) Assessment: Patient is a 21 year old male with history of substance abuse presents with acute hypoxemic hypercapnic respiratory failure likely secondary to drug overdose, aspiration pneumonia. Plan: Neurology: -Patient is intubated and sedated on propofol -Responds to painful stimuli -PEEP decreased to 10 -Repeat ABG ordered -CT head negative -UDS positive for cannabinoids, opiates -Will keep the patient intubated at this time Cardiology: -No acute issues at this time Respiratory: -Intubated and sedated on propofol -Will Discontinue Solu-medrol at this time -CT chest showed bilateral nodular parenchymal infiltrates and dense consolidation within posterior right more than left upper lobe and bilateral lobes representing pneumonia versis edema versus a combination of both processes. Moderate bilateral pleural effusions -F/U strep pneumo, urine legionella, mycoplasma GI: -CT abd/pelvis showed no acute abnormality -Diet NPO Renal: -Patient presented with LOGAN on admission -Renal function improved -Will monitor electrolytes Infectious Disease -Last temp 103 -Antibiotics: Vancomycin 1gm Q12H, Zosyn 3.375g Q6H, Doxycycline 100mg Q12H -Tylenol prn fever -F/U blood cultures, procal, lactate -F/U right lower extremity wound cultures -Ankle X ray: s/p ORIF distal tibia and fibula -Likely has a history of chronic osteomyelolitis -Infectious disease consulted, will f/u recommendations Musculoskeletal: -F/U wound culture -Podiatry on consult, help appreciated -Venous dopplers completed, official read pending GI/DVT ppx -Continue Pepcid 20mg Q12H IVP -Heparin 5000 units Q8H SC Plan discussed with Dr Stoll <Adela Stoll - Last Filed: 08/15/17 20:25> CCU Objective - Vital Signs / Intake & Output Vital Signs (Last 4 hours): Vital Signs Pulse Resp BP Pulse Ox 08/15/17 19:05 97/50 L 08/15/17 19:00 84 21 104/54 L 100 08/15/17 18:05 82 20 99 08/15/17 18:00 85 22 103/56 L 100 08/15/17 17:05 83 20 109/55 L 100 08/15/17 17:00 85 20 105/50 L 100 Intake and Output (Last 8hrs): Intake & Output 08/15/17 08/15/17 08/15/17 06:59 14:59 22:59 Intake Total 157.6 575.8 737.8 Output Total 685 350 215 Balance -527.4 225.8 522.8 Weight 215 lb Intake: IV 100 100 150 Intake, IV Amount 57.6 475.8 587.8 Left Antecubital 375 500 Right Antecubital 57.6 100.8 87.8 Output: Urine 485 350 215 Urethral (Liang) 485 350 215 Emesis 200 Other: Voiding Method Indwelling Catheter - Medications Active Medications: Active Medications Generic Name Dose Route Start Last Admin Trade Name Freq PRN Reason Stop Dose Admin Acetaminophen 650 mg 08/15/17 08:17 Tylenol 650 Mg Supp TX Q6 PRN Temperature Famotidine 20 mg 08/15/17 00:45 08/15/17 10:01 Pepcid IVP 20 mg Q12 ZAINA Administration Heparin Sodium (Porcine) 5,000 units 08/15/17 00:45 08/15/17 14:19 Heparin SC 5,000 units Q8 ZAINA Administration Propofol 1,000 mg in 100 mls @ 7.2 mls/hr 08/14/17 23:56 08/15/17 19:18 Diprivan IV 50 mcg/kg/min .[id number] PRN 24 mls/hr TITRATE PER MD ORDER Titration Protocol 15 MCG/KG/MIN Piperacillin Sod/Tazobactam Sod 3.375 gm in 50 mls @ 100 mls/hr 08/15/17 07: 00 08/15/17 18:19 Zosyn 3.375 Gm Iv Premix IVPB 100 mls/hr Q6H ZAINA Administration Protocol Vancomycin/Sodium Chloride 1 gm in 200 mls @ 133.333 mls/hr 08/15/17 13:00 13:10 Vancomycin 1 Gm/Ns 200 Ml IVPB 08/20/17 13:01 133.333 mls/hr Q12H ZAINA Administration Protocol Doxycycline Hyclate 100 mg/ 100 mls @ 100 mls/hr 08/15/17 01:45 08/15/17 13: 09 Sodium Chloride IVPB 100 mls/hr Q12H ZAINA Administration Protocol Sodium Chloride 1,000 mls @ 75 mls/hr 08/15/17 10:00 08/15/17 09:59 Sodium Chloride 0.9% IV 75 mls/hr .[id number] ZAINA Administration - Patient Studies Lab Studies: Microbiology Studies 08/15/17 00:13 Gram Stain - Preliminary Leg - Right 08/15/17 11:02 Gram Stain - Preliminary Leg - Right Lab Studies 03/12/18 03/12/18 03/12/18 Range/Units 12:21 12:21 11:15 WBC (4.8-10.8) K/uL RBC (4.40-5.90) Mil/uL Hgb (12.0-18.0) g/dL Hct (35.0-51.0) % MCV (80.0-94.0) fL MCH (27.0-31.0) pg MCHC (33.0-37.0) g/dL RDW (11.5-14.5) % Plt Count (130-400) K/uL MPV (7.2-11.7) fL Neut % (Auto) (50.0-75.0) % Lymph % (Auto) (20.0-40.0) % [place] % (Auto) (0.0-10.0) % Eos % (Auto) (0.0-4.0) % Baso % (Auto) (0.0-2.0) % Neut # (Auto) (1.8-7.0) K/uL Lymph # (Auto) (1.0-4.3) K/uL [place] # (Auto) (0.0-0.8) K/uL Eos # (Auto) (0.0-0.7) K/uL Baso # (Auto) (0.0-0.2) K/uL Neutrophils % (Manual) (50-75) % Band Neutrophils % (0-2) % Lymphocytes % (Manual) (20-40) % Monocytes % (Manual) (0-10) % Platelet Estimate (NORMAL) PT (9.7-12.2) SECONDS INR APTT (21-34) SECONDS Puncture Site Rr pCO2 48 H (35-45) mm/Hg pO2 93 (30-55) mm/Hg HCO3 23.0 (21-28) mmol/L ABG pH 7.31 L (7.35-7.45) ABG Total CO2 25.7 (22-28) mmol/L ABG O2 Saturation 98.8 H (95-98) % ABG Base Excess -2.4 L (-2.0-3.0) mmol/L ABG Hemoglobin 13.2 (11.7-17.4) g/dL ABG Carboxyhemoglobin 2.0 H (0.5-1.5) % POC ABG HHb (Measured) 1.2 (0.0-5.0) % ABG Methemoglobin 1.1 (0.0-3.0) % Haris Test Pos ABG Potassium (3.6-5.2) mmol/L VBG pH (7.32-7.43) VBG pCO2 (40-60) mmHg VBG HCO3 mmol/L VBG Total CO2 (22-28) mmol/L VBG O2 Sat (Calc) (40-65) % VBG Base Excess (0.0-2.0) mmol/L VBG Potassium (3.6-5.2) mmol/L A-a O2 Difference 275.0 mm/Hg Respiratory Index 3.0 Hgb O2 Saturation 95.8 (95.0-98.0) % Glucose (75-110) mg/dl Lactate (0.7-2.1) mmol/L Vent Mode Prvc Mechanical Rate 20 FiO2 60.0 % Tidal Volume 450 PEEP 10 Crit Value Called To Crit Value Called By Crit Value Read Back Blood Gas Notified Time Sodium (132-148) mmol/L Potassium (3.6-5.2) mmol/L Chloride (98-107) mmol/L Carbon Dioxide (22-30) mmol/L Anion Gap (10-20) BUN (9-20) mg/dL Creatinine (0.8-1.5) mg/dL Est GFR ( Amer) Est GFR (Non-Af Amer) Random Glucose (75-110) mg/dL Lactic Acid (0.7-2.1) mmol/L Calcium (8.6-10.4) mg/dl Total Bilirubin (0.2-1.3) mg/dL AST (17-59) U/L ALT (21-72) U/L Alkaline Phosphatase (38-126) U/L Total Creatine Kinase 256 H (55-170) U/L Troponin I 0.0560 (0.00-0.120) ng/mL NT-Pro-B Natriuret Pep (0-450) pg/mL Total Protein (6.3-8.3) g/dL Albumin (3.5-5.0) g/dL Globulin (2.2-3.9) gm/dL Albumin/Globulin Ratio (1.0-2.1) Lipase (23-300) U/L Arterial Blood Potassium (3.6-5.2) mmol/L Venous Blood Potassium (3.6-5.2) mmol/L Urine Color (YELLOW) Urine Clarity (Clear) Urine pH (5.0-8.0) Ur Specific [place] (1.003-1.030) Urine Protein (NEGATIVE) mg/dL Urine Glucose (UA) (Normal) mg/dL Urine Ketones (NEGATIVE) mg/dL Urine Blood (NEGATIVE) Urine Nitrate (NEGATIVE) Urine Bilirubin (NEGATIVE) Urine Urobilinogen (0.2-1.0) mg/dL Ur Leukocyte Esterase (Negative) Chao/uL Urine WBC (Auto) (0-5) /hpf Urine RBC (Auto) (0-3) /hpf Ur Squamous Epith Cells (0-5) /hpf Hyaline Casts (0-2) /lpf Salicylates mg/dL 1 Urine Opiates Screen (NEGATIVE) Urine Methadone Screen (NEGATIVE) Acetaminophen (10.0-30.0) ug/mL Ur Barbiturates Screen (NEGATIVE) Ur Phencyclidine Scrn (NEGATIVE) Ur Amphetamines Screen (NEGATIVE) U Benzodiazepines Scrn (NEGATIVE) U Oth Cocaine Metabols (NEGATIVE) U Cannabinoids Screen (NEGATIVE) Alcohol, Quantitative (0-10) mg/dl Ur L.pneumophila Ag Negative (NEGATIVE) Mycoplasma pneumon IgM Negative (NEGATIVE) 08/15/17 08/15/17 08/15/17 Range/Units 04:30 04:20 04:19 WBC (4.8-10.8) K/uL RBC (4.40-5.90) Mil/uL Hgb (12.0-18.0) g/dL Hct (35.0-51.0) % MCV (80.0-94.0) fL MCH (27.0-31.0) pg MCHC (33.0-37.0) g/dL RDW (11.5-14.5) % Plt Count (130-400) K/uL MPV (7.2-11.7) fL Neut % (Auto) (50.0-75.0) % Lymph % (Auto) (20.0-40.0) % [place] % (Auto) (0.0-10.0) % Eos % (Auto) (0.0-4.0) % Baso % (Auto) (0.0-2.0) % Neut # (Auto) (1.8-7.0) K/uL Lymph # (Auto) (1.0-4.3) K/uL [place] # (Auto) (0.0-0.8) K/uL Eos # (Auto) (0.0-0.7) K/uL Baso # (Auto) (0.0-0.2) K/uL Neutrophils % (Manual) (50-75) % Band Neutrophils % (0-2) % Lymphocytes % (Manual) (20-40) % Monocytes % (Manual) (0-10) % Platelet Estimate (NORMAL) PT (9.7-12.2) SECONDS INR APTT (21-34) SECONDS Puncture Site Rb pCO2 57 H (35-45) mm/Hg pO2 81 (30-55) mm/Hg HCO3 22.4 (21-28) mmol/L ABG pH 7.25 L (7.35-7.45) ABG Total CO2 26.7 (22-28) mmol/L ABG O2 Saturation 97.4 (95-98) % ABG Base Excess -3.1 L (-2.0-3.0) mmol/L ABG Hemoglobin (11.7-17.4) g/dL ABG Carboxyhemoglobin (0.5-1.5) % POC ABG HHb (Measured) (0.0-5.0) % ABG Methemoglobin (0.0-3.0) % Haris Test Na ABG Potassium 3.8 (3.6-5.2) mmol/L VBG pH (7.32-7.43) VBG pCO2 (40-60) mmHg VBG HCO3 mmol/L VBG Total CO2 (22-28) mmol/L VBG O2 Sat (Calc) (40-65) % VBG Base Excess (0.0-2.0) mmol/L VBG Potassium (3.6-5.2) mmol/L A-a O2 Difference 561.0 mm/Hg Respiratory Index 6.9 Hgb O2 Saturation (95.0-98.0) % Glucose 74 L (75-110) mg/dl Lactate 1.0 (0.7-2.1) mmol/L Vent Mode Prvc Mechanical Rate 20 FiO2 100.0 % Tidal Volume 450 PEEP 12 Crit Value Called To Crit Value Called By Crit Value Read Back Blood Gas Notified Time Sodium 141.0 (132-148) mmol/L Potassium (3.6-5.2) mmol/L Chloride 107.0 (98-107) mmol/L Carbon Dioxide (22-30) mmol/L Anion Gap (10-20) BUN (9-20) mg/dL Creatinine (0.8-1.5) mg/dL Est GFR ( Amer) Est GFR (Non-Af Amer) Random Glucose (75-110) mg/dL Lactic Acid 1.8 (0.7-2.1) mmol/L Calcium (8.6-10.4) mg/dl Total Bilirubin (0.2-1.3) mg/dL AST (17-59) U/L ALT (21-72) U/L Alkaline Phosphatase (38-126) U/L Total Creatine Kinase (55-170) U/L Troponin I (0.00-0.120) ng/mL NT-Pro-B Natriuret Pep (0-450) pg/mL Total Protein (6.3-8.3) g/dL Albumin (3.5-5.0) g/dL Globulin (2.2-3.9) gm/dL Albumin/Globulin Ratio (1.0-2.1) Lipase (23-300) U/L Arterial Blood Potassium 3.8 (3.6-5.2) mmol/L Venous Blood Potassium (3.6-5.2) mmol/L Urine Color (YELLOW) Urine Clarity (Clear) Urine pH (5.0-8.0) Ur Specific [place] (1.003-1.030) Urine Protein (NEGATIVE) mg/dL Urine Glucose (UA) (Normal) mg/dL Urine Ketones (NEGATIVE) mg/dL Urine Blood (NEGATIVE) Urine Nitrate (NEGATIVE) Urine Bilirubin (NEGATIVE) Urine Urobilinogen (0.2-1.0) mg/dL Ur Leukocyte Esterase (Negative) Chao/uL Urine WBC (Auto) (0-5) /hpf Urine RBC (Auto) (0-3) /hpf Ur Squamous Epith Cells (0-5) /hpf Hyaline Casts (0-2) /lpf Salicylates mg/dL 1 Urine Opiates Screen (NEGATIVE) Urine Methadone Screen (NEGATIVE) Acetaminophen < 10.0 L (10.0-30.0) ug/mL Ur Barbiturates Screen (NEGATIVE) Ur Phencyclidine Scrn (NEGATIVE) Ur Amphetamines Screen (NEGATIVE) U Benzodiazepines Scrn (NEGATIVE) U Oth Cocaine Metabols (NEGATIVE) U Cannabinoids Screen (NEGATIVE) Alcohol, Quantitative (0-10) mg/dl Ur L.pneumophila Ag (NEGATIVE) Mycoplasma pneumon IgM (NEGATIVE) 08/15/17 08/15/17 08/15/17 Range/Units 04:19 04:19 01:43 WBC 4.8 D (4.8-10.8) K/uL RBC 5.13 (4.40-5.90) Mil/uL Hgb 14.7 (12.0-18.0) g/dL Hct 44.2 (35.0-51.0) % MCV 86.1 (80.0-94.0) fL MCH 28.5 (27.0-31.0) pg MCHC 33.2 (33.0-37.0) g/dL RDW 13.8 (11.5-14.5) % Plt Count 233 (130-400) K/uL MPV 7.8 (7.2-11.7) fL Neut % (Auto) 71.3 (50.0-75.0) % Lymph % (Auto) 23.6 (20.0-40.0) % [place] % (Auto) 4.4 (0.0-10.0) % Eos % (Auto) 0.3 (0.0-4.0) % Baso % (Auto) 0.4 (0.0-2.0) % Neut # (Auto) 3.4 (1.8-7.0) K/uL Lymph # (Auto) 1.1 (1.0-4.3) K/uL [place] # (Auto) 0.2 (0.0-0.8) K/uL Eos # (Auto) 0.0 (0.0-0.7) K/uL Baso # (Auto) 0.0 (0.0-0.2) K/uL Neutrophils % (Manual) (50-75) % Band Neutrophils % (0-2) % Lymphocytes % (Manual) (20-40) % Monocytes % (Manual) (0-10) % Platelet Estimate (NORMAL) PT (9.7-12.2) SECONDS INR APTT (21-34) SECONDS Puncture Site pCO2 (35-45) mm/Hg pO2 (30-55) mm/Hg HCO3 (21-28) mmol/L ABG pH (7.35-7.45) ABG Total CO2 (22-28) mmol/L ABG O2 Saturation (95-98) % ABG Base Excess (-2.0-3.0) mmol/L ABG Hemoglobin (11.7-17.4) g/dL ABG Carboxyhemoglobin (0.5-1.5) % POC ABG HHb (Measured) (0.0-5.0) % ABG Methemoglobin (0.0-3.0) % Haris Test ABG Potassium (3.6-5.2) mmol/L VBG pH (7.32-7.43) VBG pCO2 (40-60) mmHg VBG HCO3 mmol/L VBG Total CO2 (22-28) mmol/L VBG O2 Sat (Calc) (40-65) % VBG Base Excess (0.0-2.0) mmol/L VBG Potassium (3.6-5.2) mmol/L A-a O2 Difference mm/Hg Respiratory Index Hgb O2 Saturation (95.0-98.0) % Glucose (75-110) mg/dl Lactate (0.7-2.1) mmol/L Vent Mode Mechanical Rate FiO2 % Tidal Volume PEEP Crit Value Called To Crit Value Called By Crit Value Read Back Blood Gas Notified Time Sodium 144 (132-148) mmol/L Potassium 4.8 (3.6-5.2) mmol/L Chloride 105 (98-107) mmol/L Carbon Dioxide 28 (22-30) mmol/L Anion Gap 16 (10-20) BUN 15 (9-20) mg/dL Creatinine 1.3 (0.8-1.5) mg/dL Est GFR ( Amer) > 60 Est GFR (Non-Af Amer) > 60 Random Glucose 70 L (75-110) mg/dL Lactic Acid 1.4 (0.7-2.1) mmol/L Calcium 7.8 L (8.6-10.4) mg/dl Total Bilirubin 1.0 (0.2-1.3) mg/dL AST 54 (17-59) U/L ALT 44 (21-72) U/L Alkaline Phosphatase 130 H (38-126) U/L Total Creatine Kinase (55-170) U/L Troponin I (0.00-0.120) ng/mL NT-Pro-B Natriuret Pep (0-450) pg/mL Total Protein 7.6 (6.3-8.3) g/dL Albumin 3.5 (3.5-5.0) g/dL Globulin 4.1 H (2.2-3.9) gm/dL Albumin/Globulin Ratio 0.9 L (1.0-2.1) Lipase (23-300) U/L Arterial Blood Potassium (3.6-5.2) mmol/L Venous Blood Potassium (3.6-5.2) mmol/L Urine Color (YELLOW) Urine Clarity (Clear) Urine pH (5.0-8.0) Ur Specific [place] (1.003-1.030) Urine Protein (NEGATIVE) mg/dL Urine Glucose (UA) (Normal) mg/dL Urine Ketones (NEGATIVE) mg/dL Urine Blood (NEGATIVE) Urine Nitrate (NEGATIVE) Urine Bilirubin (NEGATIVE) Urine Urobilinogen (0.2-1.0) mg/dL Ur Leukocyte Esterase (Negative) Chao/uL Urine WBC (Auto) (0-5) /hpf Urine RBC (Auto) (0-3) /hpf Ur Squamous Epith Cells (0-5) /hpf Hyaline Casts (0-2) /lpf Salicylates mg/dL 1 Urine Opiates Screen (NEGATIVE) Urine Methadone Screen (NEGATIVE) Acetaminophen (10.0-30.0) ug/mL Ur Barbiturates Screen (NEGATIVE) Ur Phencyclidine Scrn (NEGATIVE) Ur Amphetamines Screen (NEGATIVE) U Benzodiazepines Scrn (NEGATIVE) U Oth Cocaine Metabols (NEGATIVE) U Cannabinoids Screen (NEGATIVE) Alcohol, Quantitative (0-10) mg/dl Ur L.pneumophila Ag (NEGATIVE) Mycoplasma pneumon IgM (NEGATIVE) 08/15/17 08/14/17 08/14/17 Range/Units 00:06 23:44 23:40 WBC (4.8-10.8) K/uL RBC (4.40-5.90) Mil/uL Hgb (12.0-18.0) g/dL Hct (35.0-51.0) % MCV (80.0-94.0) fL MCH (27.0-31.0) pg MCHC (33.0-37.0) g/dL RDW (11.5-14.5) % Plt Count (130-400) K/uL MPV (7.2-11.7) fL Neut % (Auto) (50.0-75.0) % Lymph % (Auto) (20.0-40.0) % [place] % (Auto) (0.0-10.0) % Eos % (Auto) (0.0-4.0) % Baso % (Auto) (0.0-2.0) % Neut # (Auto) (1.8-7.0) K/uL Lymph # (Auto) (1.0-4.3) K/uL [place] # (Auto) (0.0-0.8) K/uL Eos # (Auto) (0.0-0.7) K/uL Baso # (Auto) (0.0-0.2) K/uL Neutrophils % (Manual) (50-75) % Band Neutrophils % (0-2) % Lymphocytes % (Manual) (20-40) % Monocytes % (Manual) (0-10) % Platelet Estimate (NORMAL) PT (9.7-12.2) SECONDS INR APTT (21-34) SECONDS Puncture Site pCO2 (35-45) mm/Hg pO2 16 L (30-55) mm/Hg HCO3 (21-28) mmol/L ABG pH (7.35-7.45) ABG Total CO2 (22-28) mmol/L ABG O2 Saturation (95-98) % ABG Base Excess (-2.0-3.0) mmol/L ABG Hemoglobin (11.7-17.4) g/dL ABG Carboxyhemoglobin (0.5-1.5) % POC ABG HHb (Measured) (0.0-5.0) % ABG Methemoglobin (0.0-3.0) % Haris Test ABG Potassium (3.6-5.2) mmol/L VBG pH 7.16 L* (7.32-7.43) VBG pCO2 86 H* (40-60) mmHg VBG HCO3 22.2 mmol/L VBG Total CO2 33.3 H (22-28) mmol/L VBG O2 Sat (Calc) 27.6 L (40-65) % VBG Base Excess -0.5 L (0.0-2.0) mmol/L VBG Potassium 4.0 (3.6-5.2) mmol/L A-a O2 Difference mm/Hg Respiratory Index Hgb O2 Saturation (95.0-98.0) % Glucose 183 H (75-110) mg/dl Lactate 2.5 H (0.7-2.1) mmol/L Vent Mode Mechanical Rate FiO2 % Tidal Volume PEEP Crit Value Called To Maritza higgins/rn Crit Value Called By Carlos hutchison/rt Crit Value Read Back Y Blood Gas Notified Time 2350 Sodium 141.0 (132-148) mmol/L Potassium (3.6-5.2) mmol/L Chloride 103.0 (98-107) mmol/L Carbon Dioxide (22-30) mmol/L Anion Gap (10-20) BUN (9-20) mg/dL Creatinine (0.8-1.5) mg/dL Est GFR ( Amer) Est GFR (Non-Af Amer) Random Glucose (75-110) mg/dL Lactic Acid (0.7-2.1) mmol/L Calcium (8.6-10.4) mg/dl Total Bilirubin (0.2-1.3) mg/dL AST (17-59) U/L ALT (21-72) U/L Alkaline Phosphatase (38-126) U/L Total Creatine Kinase (55-170) U/L Troponin I (0.00-0.120) ng/mL NT-Pro-B Natriuret Pep (0-450) pg/mL Total Protein (6.3-8.3) g/dL Albumin (3.5-5.0) g/dL Globulin (2.2-3.9) gm/dL Albumin/Globulin Ratio (1.0-2.1) Lipase (23-300) U/L Arterial Blood Potassium (3.6-5.2) mmol/L Venous Blood Potassium 4.0 (3.6-5.2) mmol/L Urine Color Yellow (YELLOW) Urine Clarity Hazy (Clear) Urine pH 6.0 (5.0-8.0) Ur Specific [place] 1.017 (1.003-1.030) Urine Protein 2+ H (NEGATIVE) mg/dL Urine Glucose (UA) 1+ H (Normal) mg/dL Urine Ketones Negative (NEGATIVE) mg/dL Urine Blood Negative (NEGATIVE) Urine Nitrate Negative (NEGATIVE) Urine Bilirubin Negative (NEGATIVE) Urine Urobilinogen Normal (0.2-1.0) mg/dL Ur Leukocyte Esterase Neg (Negative) Chao/uL Urine WBC (Auto) 11 H (0-5) /hpf Urine RBC (Auto) 11 H (0-3) /hpf Ur Squamous Epith Cells 9 H (0-5) /hpf Hyaline Casts 0-2 (0-2) /lpf Salicylates mg/dL 1 Urine Opiates Screen Positive H (NEGATIVE) Urine Methadone Screen Negative (NEGATIVE) Acetaminophen (10.0-30.0) ug/mL Ur Barbiturates Screen Negative (NEGATIVE) Ur Phencyclidine Scrn Negative (NEGATIVE) Ur Amphetamines Screen Negative (NEGATIVE) U Benzodiazepines Scrn Negative (NEGATIVE) U Oth Cocaine Metabols Negative (NEGATIVE) U Cannabinoids Screen Positive H (NEGATIVE) Alcohol, Quantitative (0-10) mg/dl Ur L.pneumophila Ag (NEGATIVE) Mycoplasma pneumon IgM (NEGATIVE) 08/14/17 08/14/17 08/14/17 Range/Units 23:27 23:27 23:27 WBC (4.8-10.8) K/uL RBC (4.40-5.90) Mil/uL Hgb (12.0-18.0) g/dL Hct (35.0-51.0) % MCV (80.0-94.0) fL MCH (27.0-31.0) pg MCHC (33.0-37.0) g/dL RDW (11.5-14.5) % Plt Count (130-400) K/uL MPV (7.2-11.7) fL Neut % (Auto) (50.0-75.0) % Lymph % (Auto) (20.0-40.0) % [place] % (Auto) (0.0-10.0) % Eos % (Auto) (0.0-4.0) % Baso % (Auto) (0.0-2.0) % Neut # (Auto) (1.8-7.0) K/uL Lymph # (Auto) (1.0-4.3) K/uL [place] # (Auto) (0.0-0.8) K/uL Eos # (Auto) (0.0-0.7) K/uL Baso # (Auto) (0.0-0.2) K/uL Neutrophils % (Manual) (50-75) % Band Neutrophils % (0-2) % Lymphocytes % (Manual) (20-40) % Monocytes % (Manual) (0-10) % Platelet Estimate (NORMAL) PT 12.1 (9.7-12.2) SECONDS INR 1.1 APTT 32 (21-34) SECONDS Puncture Site pCO2 (35-45) mm/Hg pO2 (30-55) mm/Hg HCO3 (21-28) mmol/L ABG pH (7.35-7.45) ABG Total CO2 (22-28) mmol/L ABG O2 Saturation (95-98) % ABG Base Excess (-2.0-3.0) mmol/L ABG Hemoglobin (11.7-17.4) g/dL ABG Carboxyhemoglobin (0.5-1.5) % POC ABG HHb (Measured) (0.0-5.0) % ABG Methemoglobin (0.0-3.0) % Haris Test ABG Potassium (3.6-5.2) mmol/L VBG pH (7.32-7.43) VBG pCO2 (40-60) mmHg VBG HCO3 mmol/L VBG Total CO2 (22-28) mmol/L VBG O2 Sat (Calc) (40-65) % VBG Base Excess (0.0-2.0) mmol/L VBG Potassium (3.6-5.2) mmol/L A-a O2 Difference mm/Hg Respiratory Index Hgb O2 Saturation (95.0-98.0) % Glucose (75-110) mg/dl Lactate (0.7-2.1) mmol/L Vent Mode Mechanical Rate FiO2 % Tidal Volume PEEP Crit Value Called To Crit Value Called By Crit Value Read Back Blood Gas Notified Time Sodium 143 (132-148) mmol/L Potassium 4.0 (3.6-5.2) mmol/L Chloride 101 (98-107) mmol/L Carbon Dioxide 28 (22-30) mmol/L Anion Gap 18 (10-20) BUN 16 (9-20) mg/dL Creatinine 1.6 H (0.8-1.5) mg/dL Est GFR ( Amer) > 60 Est GFR (Non-Af Amer) 54 Random Glucose 180 H (75-110) mg/dL Lactic Acid (0.7-2.1) mmol/L Calcium 8.3 L (8.6-10.4) mg/dl Total Bilirubin 0.6 (0.2-1.3) mg/dL AST 70 H (17-59) U/L ALT 46 (21-72) U/L Alkaline Phosphatase 132 H (38-126) U/L Total Creatine Kinase (55-170) U/L Troponin I 0.0130 (0.00-0.120) ng/mL NT-Pro-B Natriuret Pep 69.0 (0-450) pg/mL Total Protein 8.3 (6.3-8.3) g/dL Albumin 3.9 (3.5-5.0) g/dL Globulin 4.4 H (2.2-3.9) gm/dL Albumin/Globulin Ratio 0.9 L (1.0-2.1) Lipase 28 (23-300) U/L Arterial Blood Potassium (3.6-5.2) mmol/L Venous Blood Potassium (3.6-5.2) mmol/L Urine Color (YELLOW) Urine Clarity (Clear) Urine pH (5.0-8.0) Ur Specific [place] (1.003-1.030) Urine Protein (NEGATIVE) mg/dL Urine Glucose (UA) (Normal) mg/dL Urine Ketones (NEGATIVE) mg/dL Urine Blood (NEGATIVE) Urine Nitrate (NEGATIVE) Urine Bilirubin (NEGATIVE) Urine Urobilinogen (0.2-1.0) mg/dL Ur Leukocyte Esterase (Negative) Chao/uL Urine WBC (Auto) (0-5) /hpf Urine RBC (Auto) (0-3) /hpf Ur Squamous Epith Cells (0-5) /hpf Hyaline Casts (0-2) /lpf Salicylates < 1.0 mg/dL 1 Urine Opiates Screen (NEGATIVE) Urine Methadone Screen (NEGATIVE) Acetaminophen < 10.0 L (10.0-30.0) ug/mL Ur Barbiturates Screen (NEGATIVE) Ur Phencyclidine Scrn (NEGATIVE) Ur Amphetamines Screen (NEGATIVE) U Benzodiazepines Scrn (NEGATIVE) U Oth Cocaine Metabols (NEGATIVE) U Cannabinoids Screen (NEGATIVE) Alcohol, Quantitative < 10 (0-10) mg/dl Ur L.pneumophila Ag (NEGATIVE) Mycoplasma pneumon IgM (NEGATIVE) 08/14/17 Range/Units 23:27 WBC 15.9 H (4.8-10.8) K/uL RBC 4.85 (4.40-5.90) Mil/uL Hgb 13.9 (12.0-18.0) g/dL Hct 42.2 (35.0-51.0) % MCV 86.9 (80.0-94.0) fL MCH 28.7 (27.0-31.0) pg MCHC 33.0 (33.0-37.0) g/dL RDW 13.7 (11.5-14.5) % Plt Count 272 (130-400) K/uL MPV 7.8 (7.2-11.7) fL Neut % (Auto) 87.5 H (50.0-75.0) % Lymph % (Auto) 8.9 L (20.0-40.0) % Dewitt % (Auto) 2.7 (0.0-10.0) % Eos % (Auto) 0.5 (0.0-4.0) % Baso % (Auto) 0.4 (0.0-2.0) % Neut # (Auto) 13.9 H (1.8-7.0) K/uL Lymph # (Auto) 1.4 (1.0-4.3) K/uL Dewitt # (Auto) 0.4 (0.0-0.8) K/uL Eos # (Auto) 0.1 (0.0-0.7) K/uL Baso # (Auto) 0.1 (0.0-0.2) K/uL Neutrophils % (Manual) 79 H (50-75) % Band Neutrophils % 8 H (0-2) % Lymphocytes % (Manual) 10 L (20-40) % Monocytes % (Manual) 3 (0-10) % Platelet Estimate Normal (NORMAL) PT (9.7-12.2) SECONDS INR APTT (21-34) SECONDS Puncture Site pCO2 (35-45) mm/Hg pO2 (30-55) mm/Hg HCO3 (21-28) mmol/L ABG pH (7.35-7.45) ABG Total CO2 (22-28) mmol/L ABG O2 Saturation (95-98) % ABG Base Excess (-2.0-3.0) mmol/L ABG Hemoglobin (11.7-17.4) g/dL ABG Carboxyhemoglobin (0.5-1.5) % POC ABG HHb (Measured) (0.0-5.0) % ABG Methemoglobin (0.0-3.0) % Haris Test ABG Potassium (3.6-5.2) mmol/L VBG pH (7.32-7.43) VBG pCO2 (40-60) mmHg VBG HCO3 mmol/L VBG Total CO2 (22-28) mmol/L VBG O2 Sat (Calc) (40-65) % VBG Base Excess (0.0-2.0) mmol/L VBG Potassium (3.6-5.2) mmol/L A-a O2 Difference mm/Hg Respiratory Index Hgb O2 Saturation (95.0-98.0) % Glucose (75-110) mg/dl Lactate (0.7-2.1) mmol/L Vent Mode Mechanical Rate FiO2 % Tidal Volume PEEP Crit Value Called To Crit Value Called By Crit Value Read Back Blood Gas Notified Time Sodium (132-148) mmol/L Potassium (3.6-5.2) mmol/L Chloride (98-107) mmol/L Carbon Dioxide (22-30) mmol/L Anion Gap (10-20) BUN (9-20) mg/dL Creatinine (0.8-1.5) mg/dL Est GFR ( Amer) Est GFR (Non-Af Amer) Random Glucose (75-110) mg/dL Lactic Acid (0.7-2.1) mmol/L Calcium (8.6-10.4) mg/dl Total Bilirubin (0.2-1.3) mg/dL AST (17-59) U/L ALT (21-72) U/L Alkaline Phosphatase (38-126) U/L Total Creatine Kinase (55-170) U/L Troponin I (0.00-0.120) ng/mL NT-Pro-B Natriuret Pep (0-450) pg/mL Total Protein (6.3-8.3) g/dL Albumin (3.5-5.0) g/dL Globulin (2.2-3.9) gm/dL Albumin/Globulin Ratio (1.0-2.1) Lipase (23-300) U/L Arterial Blood Potassium (3.6-5.2) mmol/L Venous Blood Potassium (3.6-5.2) mmol/L Urine Color (YELLOW) Urine Clarity (Clear) Urine pH (5.0-8.0) Ur Specific [place] (1.003-1.030) Urine Protein (NEGATIVE) mg/dL Urine Glucose (UA) (Normal) mg/dL Urine Ketones (NEGATIVE) mg/dL Urine Blood (NEGATIVE) Urine Nitrate (NEGATIVE) Urine Bilirubin (NEGATIVE) Urine Urobilinogen (0.2-1.0) mg/dL Ur Leukocyte Esterase (Negative) Chao/uL Urine WBC (Auto) (0-5) /hpf Urine RBC (Auto) (0-3) /hpf Ur Squamous Epith Cells (0-5) /hpf Hyaline Casts (0-2) /lpf Salicylates mg/dL 1 Urine Opiates Screen (NEGATIVE) Urine Methadone Screen (NEGATIVE) Acetaminophen (10.0-30.0) ug/mL Ur Barbiturates Screen (NEGATIVE) Ur Phencyclidine Scrn (NEGATIVE) Ur Amphetamines Screen (NEGATIVE) U Benzodiazepines Scrn (NEGATIVE) U Oth Cocaine Metabols (NEGATIVE) U Cannabinoids Screen (NEGATIVE) Alcohol, Quantitative (0-10) mg/dl Ur L.pneumophila Ag (NEGATIVE) Mycoplasma pneumon IgM (NEGATIVE) Laboratory Results - last 24 hr 08/14/17 08/14/17 08/14/17 23:27 23:27 23:27 WBC 15.9 H RBC 4.85 Hgb 13.9 Hct 42.2 MCV 86.9 MCH 28.7 MCHC 33.0 RDW 13.7 Plt Count 272 MPV 7.8 Neut % (Auto) 87.5 H Lymph % (Auto) 8.9 L Dewitt % (Auto) 2.7 Eos % (Auto) 0.5 Baso % (Auto) 0.4 Neut # (Auto) 13.9 H Lymph # (Auto) 1.4 Dewitt # (Auto) 0.4 Eos # (Auto) 0.1 Baso # (Auto) 0.1 Neutrophils % (Manual) 79 H Band Neutrophils % 8 H Lymphocytes % (Manual) 10 L Monocytes % (Manual) 3 Platelet Estimate Normal PT 12.1 INR 1.1 APTT 32 Puncture Site pCO2 pO2 HCO3 ABG pH ABG Total CO2 ABG O2 Saturation ABG Base Excess ABG Hemoglobin ABG Carboxyhemoglobin POC ABG HHb (Measured) ABG Methemoglobin Haris Test ABG Potassium VBG pH VBG pCO2 VBG HCO3 VBG Total CO2 VBG O2 Sat (Calc) VBG Base Excess VBG Potassium A-a O2 Difference Respiratory Index Hgb O2 Saturation Glucose Lactate Vent Mode Mechanical Rate FiO2 Tidal Volume PEEP Crit Value Called To Crit Value Called By Crit Value Read Back Blood Gas Notified Time Sodium 143 Potassium 4.0 Chloride 101 Carbon Dioxide 28 Anion Gap 18 BUN 16 Creatinine 1.6 H Est GFR ( Amer) > 60 Est GFR (Non-Af Amer) 54 Random Glucose 180 H Lactic Acid Calcium 8.3 L Total Bilirubin 0.6 AST 70 H ALT 46 Alkaline Phosphatase 132 H Total Creatine Kinase Troponin I 0.0130 NT-Pro-B Natriuret Pep 69.0 Total Protein 8.3 Albumin 3.9 Globulin 4.4 H Albumin/Globulin Ratio 0.9 L Lipase 28 Arterial Blood Potassium Venous Blood Potassium Urine Color Urine Clarity Urine pH Ur Specific [place] Urine Protein Urine Glucose (UA) Urine Ketones Urine Blood Urine Nitrate Urine Bilirubin Urine Urobilinogen Ur Leukocyte Esterase Urine WBC (Auto) Urine RBC (Auto) Ur Squamous Epith Cells Hyaline Casts Salicylates Urine Opiates Screen Urine Methadone Screen Acetaminophen Ur Barbiturates Screen Ur Phencyclidine Scrn Ur Amphetamines Screen U Benzodiazepines Scrn U Oth Cocaine Metabols U Cannabinoids Screen Alcohol, Quantitative < 10 Ur L.pneumophila Ag Mycoplasma pneumon IgM 08/14/17 08/14/17 08/14/17 23:27 23:40 23:44 WBC RBC Hgb Hct MCV MCH MCHC RDW Plt Count MPV Neut % (Auto) Lymph % (Auto) Dewitt % (Auto) Eos % (Auto) Baso % (Auto) Neut # (Auto) Lymph # (Auto) Dewitt # (Auto) Eos # (Auto) Baso # (Auto) Neutrophils % (Manual) Band Neutrophils % Lymphocytes % (Manual) Monocytes % (Manual) Platelet Estimate PT INR APTT Puncture Site pCO2 pO2 16 L HCO3 ABG pH ABG Total CO2 ABG O2 Saturation ABG Base Excess ABG Hemoglobin ABG Carboxyhemoglobin POC ABG HHb (Measured) ABG Methemoglobin Haris Test ABG Potassium VBG pH 7.16 L* VBG pCO2 86 H* VBG HCO3 22.2 VBG Total CO2 33.3 H VBG O2 Sat (Calc) 27.6 L VBG Base Excess -0.5 L VBG Potassium 4.0 A-a O2 Difference Respiratory Index Hgb O2 Saturation Glucose 183 H Lactate 2.5 H Vent Mode Mechanical Rate FiO2 Tidal Volume PEEP Crit Value Called To Maritza higgins/rn Crit Value Called By Carlos hutchison/rt Crit Value Read Back Y Blood Gas Notified Time 2350 Sodium 141.0 Potassium Chloride 103.0 Carbon Dioxide Anion Gap BUN Creatinine Est GFR ( Amer) Est GFR (Non-Af Amer) Random Glucose Lactic Acid Calcium Total Bilirubin AST ALT Alkaline Phosphatase Total Creatine Kinase Troponin I NT-Pro-B Natriuret Pep Total Protein Albumin Globulin Albumin/Globulin Ratio Lipase Arterial Blood Potassium Venous Blood Potassium 4.0 Urine Color Urine Clarity Urine pH Ur Specific [place] Urine Protein Urine Glucose (UA) Urine Ketones Urine Blood Urine Nitrate Urine Bilirubin Urine Urobilinogen Ur Leukocyte Esterase Urine WBC (Auto) Urine RBC (Auto) Ur Squamous Epith Cells Hyaline Casts Salicylates < 1.0 Urine Opiates Screen Positive H Urine Methadone Screen Negative Acetaminophen < 10.0 L Ur Barbiturates Screen Negative Ur Phencyclidine Scrn Negative Ur Amphetamines Screen Negative U Benzodiazepines Scrn Negative U Oth Cocaine Metabols Negative U Cannabinoids Screen Positive H Alcohol, Quantitative Ur L.pneumophila Ag Mycoplasma pneumon IgM 08/15/17 08/15/17 08/15/17 00:06 01:43 04:19 WBC 4.8 D RBC 5.13 Hgb 14.7 Hct 44.2 MCV 86.1 MCH 28.5 MCHC 33.2 RDW 13.8 Plt Count 233 MPV 7.8 Neut % (Auto) 71.3 Lymph % (Auto) 23.6 Dewitt % (Auto) 4.4 Eos % (Auto) 0.3 Baso % (Auto) 0.4 Neut # (Auto) 3.4 Lymph # (Auto) 1.1 Dewitt # (Auto) 0.2 Eos # (Auto) 0.0 Baso # (Auto) 0.0 Neutrophils % (Manual) Band Neutrophils % Lymphocytes % (Manual) Monocytes % (Manual) Platelet Estimate PT INR APTT Puncture Site pCO2 pO2 HCO3 ABG pH ABG Total CO2 ABG O2 Saturation ABG Base Excess ABG Hemoglobin ABG Carboxyhemoglobin POC ABG HHb (Measured) ABG Methemoglobin Haris Test ABG Potassium VBG pH VBG pCO2 VBG HCO3 VBG Total CO2 VBG O2 Sat (Calc) VBG Base Excess VBG Potassium A-a O2 Difference Respiratory Index Hgb O2 Saturation Glucose Lactate Vent Mode Mechanical Rate FiO2 Tidal Volume PEEP Crit Value Called To Crit Value Called By Crit Value Read Back Blood Gas Notified Time Sodium Potassium Chloride Carbon Dioxide Anion Gap BUN Creatinine Est GFR ( Amer) Est GFR (Non-Af Amer) Random Glucose Lactic Acid 1.4 Calcium Total Bilirubin AST ALT Alkaline Phosphatase Total Creatine Kinase Troponin I NT-Pro-B Natriuret Pep Total Protein Albumin Globulin Albumin/Globulin Ratio Lipase Arterial Blood Potassium Venous Blood Potassium Urine Color Yellow Urine Clarity Hazy Urine pH 6.0 Ur Specific [place] 1.017 Urine Protein 2+ H Urine Glucose (UA) 1+ H Urine Ketones Negative Urine Blood Negative Urine Nitrate Negative Urine Bilirubin Negative Urine Urobilinogen Normal Ur Leukocyte Esterase Neg Urine WBC (Auto) 11 H Urine RBC (Auto) 11 H Ur Squamous Epith Cells 9 H Hyaline Casts 0-2 Salicylates Urine Opiates Screen Urine Methadone Screen Acetaminophen Ur Barbiturates Screen Ur Phencyclidine Scrn Ur Amphetamines Screen U Benzodiazepines Scrn U Oth Cocaine Metabols U Cannabinoids Screen Alcohol, Quantitative Ur L.pneumophila Ag Mycoplasma pneumon IgM 08/15/17 08/15/17 08/15/17 04:19 04:19 04:20 WBC RBC Hgb Hct MCV MCH MCHC RDW Plt Count MPV Neut % (Auto) Lymph % (Auto) Dewitt % (Auto) Eos % (Auto) Baso % (Auto) Neut # (Auto) Lymph # (Auto) Dewitt # (Auto) Eos # (Auto) Baso # (Auto) Neutrophils % (Manual) Band Neutrophils % Lymphocytes % (Manual) Monocytes % (Manual) Platelet Estimate PT INR APTT Puncture Site pCO2 pO2 HCO3 ABG pH ABG Total CO2 ABG O2 Saturation ABG Base Excess ABG Hemoglobin ABG Carboxyhemoglobin POC ABG HHb (Measured) ABG Methemoglobin Haris Test ABG Potassium VBG pH VBG pCO2 VBG HCO3 VBG Total CO2 VBG O2 Sat (Calc) VBG Base Excess VBG Potassium A-a O2 Difference Respiratory Index Hgb O2 Saturation Glucose Lactate Vent Mode Mechanical Rate FiO2 Tidal Volume PEEP Crit Value Called To Crit Value Called By Crit Value Read Back Blood Gas Notified Time Sodium 144 Potassium 4.8 Chloride 105 Carbon Dioxide 28 Anion Gap 16 BUN 15 Creatinine 1.3 Est GFR ( Amer) > 60 Est GFR (Non-Af Amer) > 60 Random Glucose 70 L Lactic Acid 1.8 Calcium 7.8 L Total Bilirubin 1.0 AST 54 ALT 44 Alkaline Phosphatase 130 H Total Creatine Kinase Troponin I NT-Pro-B Natriuret Pep Total Protein 7.6 Albumin 3.5 Globulin 4.1 H Albumin/Globulin Ratio 0.9 L Lipase Arterial Blood Potassium Venous Blood Potassium Urine Color Urine Clarity Urine pH Ur Specific [place] Urine Protein Urine Glucose (UA) Urine Ketones Urine Blood Urine Nitrate Urine Bilirubin Urine Urobilinogen Ur Leukocyte Esterase Urine WBC (Auto) Urine RBC (Auto) Ur Squamous Epith Cells Hyaline Casts Salicylates Urine Opiates Screen Urine Methadone Screen Acetaminophen < 10.0 L Ur Barbiturates Screen Ur Phencyclidine Scrn Ur Amphetamines Screen U Benzodiazepines Scrn U Oth Cocaine Metabols U Cannabinoids Screen Alcohol, Quantitative Ur L.pneumophila Ag Mycoplasma pneumon IgM 08/15/17 08/15/17 08/15/17 04:30 11:15 12:21 WBC RBC Hgb Hct MCV MCH MCHC RDW Plt Count MPV Neut % (Auto) Lymph % (Auto) [place] % (Auto) Eos % (Auto) Baso % (Auto) Neut # (Auto) Lymph # (Auto) [place] # (Auto) Eos # (Auto) Baso # (Auto) Neutrophils % (Manual) Band Neutrophils % Lymphocytes % (Manual) Monocytes % (Manual) Platelet Estimate PT INR APTT Puncture Site Rb Rr pCO2 57 H 48 H pO2 81 93 HCO3 22.4 23.0 ABG pH 7.25 L 7.31 L ABG Total CO2 26.7 25.7 ABG O2 Saturation 97.4 98.8 H ABG Base Excess -3.1 L -2.4 L ABG Hemoglobin 13.2 ABG Carboxyhemoglobin 2.0 H POC ABG HHb (Measured) 1.2 ABG Methemoglobin 1.1 Haris Test Na Pos ABG Potassium 3.8 VBG pH VBG pCO2 VBG HCO3 VBG Total CO2 VBG O2 Sat (Calc) VBG Base Excess VBG Potassium A-a O2 Difference 561.0 275.0 Respiratory Index 6.9 3.0 Hgb O2 Saturation 95.8 Glucose 74 L Lactate 1.0 Vent Mode Prvc Prvc Mechanical Rate 20 20 FiO2 100.0 60.0 Tidal Volume 450 450 PEEP 12 10 Crit Value Called To Crit Value Called By Crit Value Read Back Blood Gas Notified Time Sodium 141.0 Potassium Chloride 107.0 Carbon Dioxide Anion Gap BUN Creatinine Est GFR ( Amer) Est GFR (Non-Af Amer) Random Glucose Lactic Acid Calcium Total Bilirubin AST ALT Alkaline Phosphatase Total Creatine Kinase 256 H Troponin I 0.0560 NT-Pro-B Natriuret Pep Total Protein Albumin Globulin Albumin/Globulin Ratio Lipase Arterial Blood Potassium 3.8 Venous Blood Potassium Urine Color Urine Clarity Urine pH Ur Specific [place] Urine Protein Urine Glucose (UA) Urine Ketones Urine Blood Urine Nitrate Urine Bilirubin Urine Urobilinogen Ur Leukocyte Esterase Urine WBC (Auto) Urine RBC (Auto) Ur Squamous Epith Cells Hyaline Casts Salicylates Urine Opiates Screen Urine Methadone Screen Acetaminophen Ur Barbiturates Screen Ur Phencyclidine Scrn Ur Amphetamines Screen U Benzodiazepines Scrn U Oth Cocaine Metabols U Cannabinoids Screen Alcohol, Quantitative Ur L.pneumophila Ag Mycoplasma pneumon IgM 08/15/17 12:21 WBC RBC Hgb Hct MCV MCH MCHC RDW Plt Count MPV Neut % (Auto) Lymph % (Auto) Dew[place] % (Auto) Eos % (Auto) Baso % (Auto) Neut # (Auto) Lymph # (Auto) [place] # (Auto) Eos # (Auto) Baso # (Auto) Neutrophils % (Manual) Band Neutrophils % Lymphocytes % (Manual) Monocytes % (Manual) Platelet Estimate PT INR APTT Puncture Site pCO2 pO2 HCO3 ABG pH ABG Total CO2 ABG O2 Saturation ABG Base Excess ABG Hemoglobin ABG Carboxyhemoglobin POC ABG HHb (Measured) ABG Methemoglobin Haris Test ABG Potassium VBG pH VBG pCO2 VBG HCO3 VBG Total CO2 VBG O2 Sat (Calc) VBG Base Excess VBG Potassium A-a O2 Difference Respiratory Index Hgb O2 Saturation Glucose Lactate Vent Mode Mechanical Rate FiO2 Tidal Volume PEEP Crit Value Called To Crit Value Called By Crit Value Read Back Blood Gas Notified Time Sodium Potassium Chloride Carbon Dioxide Anion Gap BUN Creatinine Est GFR ( Amer) Est GFR (Non-Af Amer) Random Glucose Lactic Acid Calcium Total Bilirubin AST ALT Alkaline Phosphatase Total Creatine Kinase Troponin I NT-Pro-B Natriuret Pep Total Protein Albumin Globulin Albumin/Globulin Ratio Lipase Arterial Blood Potassium Venous Blood Potassium Urine Color Urine Clarity Urine pH Ur Specific [place] Urine Protein Urine Glucose (UA) Urine Ketones Urine Blood Urine Nitrate Urine Bilirubin Urine Urobilinogen Ur Leukocyte Esterase Urine WBC (Auto) Urine RBC (Auto) Ur Squamous Epith Cells Hyaline Casts Salicylates Urine Opiates Screen Urine Methadone Screen Acetaminophen Ur Barbiturates Screen Ur Phencyclidine Scrn Ur Amphetamines Screen U Benzodiazepines Scrn U Oth Cocaine Metabols U Cannabinoids Screen Alcohol, Quantitative Ur L.pneumophila Ag Negative Mycoplasma pneumon IgM Negative EKG/Cardiology Studies: Cardiology / EKG Studies 08/14/17 23:03 ELECTROCARDIOGRAM Stat Comment: Mode Of Transportation: BED Reason For Exam: chest pain Critical Care Progress Note - Nutrition Nutrition: Nutrition Category Date Time Status NPO Diet [DIET] Diets 08/15/17 Breakfast Active Attending/Attestation - Attestation I have personally seen and examined this patient.: Yes I have fully participated in the care of the patient.: Yes I have reviewed all pertinent clinical information: Yes Notes (Text): 08/15/17 20:24 Patient with acute respiratory failure on ventilator. ARDS. Continue the monitor Spoke to the family
[2017-08-15] MEDS: Sodium Chloride 0.9% 1,000 ML IV SCH (09:59)
[2017-08-15 11:23] LABS: ABG ALLEN TEST POS; ARTERIAL BLOOD GAS HEMOGLOBIN 13.2 g/dL (11.7-17.4); ARTERIAL BLOOD GAS O2 SAT 98.8 % (95-98); ARTERIAL BLOOD GAS PCO2 48 mm/Hg (35-45); ARTERIAL BLOOD GAS PH 7.31 (7.35-7.45); ARTERIAL BLOOD GAS PO2 93 mm/Hg (80-100); ARTERIAL BLOOD GAS TCO2 25.7 mmol/L (22-28)
[2017-08-15 12:52] LABS: TROPONIN I 0.056 ng/mL (0.00-0.120)
[2017-08-15] MEDS: Vancomycin 1 gm/NS 200 ml 1 GM/200 ML BAG IVPB SCH (13:10)
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
[2017-08-15 13:34] LABS: MYCOPLASMA PNEUMONIAE IGM NEGATIVE (NEGATIVE)
--- NOTE | 2017-08-15 14:45 | VASCLAB ---
PROCEDURE: Lower Extremity Venous Duplex Exam. HISTORY: R LE swelling PRIORS: None. TECHNIQUE: Bilateral common femoral, femoral, popliteal and posterior tibial, peroneal and great saphenous veins were evaluated. Flow was assessed with color Doppler, compressibility, assessment of phasic flow and augmentation response. Report prepared by Saul Dockery, VIVEK, RVT FINDINGS: RIGHT: 1. Common Femoral Vein: 1.1. Compressibility - Fully compressible: Thrombus - None : Flow - Phasic: Augmentation -Normal: Reflux - None. 2. Femoral Vein: 2.1. Compressibility - Fully compressible: Thrombus - None : Flow - Phasic: Augmentation -Normal: Reflux - None. 3. Popliteal Vein: 3.1. Compressibility - Fully compressible: Thrombus - None : Flow - Phasic: Augmentation -Normal: Reflux - None. 4. Posterior Tibial Vein: 4.1. Compressibility - Fully compressible: Thrombus - None: Flow - Phasic: Augmentation -Normal: Reflux - None. 5. Peroneal Vein: 5.1. Compressibility - Fully compressible: Thrombus - None: Flow - Phasic: Augmentation -Normal: Reflux - None. 6. Great Saphenous Vein: 6.1. Compressibility - Fully compressible: Thrombus - None: Flow - Phasic: Augmentation - Normal: Reflux - None. LEFT: 1. Common Femoral Vein: 1.1. Compressibility - Fully compressible: Thrombus - None: Flow - Phasic: Augmentation -Normal: Reflux - None. 2. Femoral Vein: 2.1. Compressibility - Fully compressible: Thrombus - None: Flow - Phasic: Augmentation -Normal: Reflux - None. 3. Popliteal Vein: 3.1. Compressibility - Fully compressible: Thrombus - None : Flow - Phasic: Augmentation -Normal: Reflux - None. 4. Posterior Tibial Vein: 4.1. Compressibility - Fully compressible: Thrombus - None: Flow - Phasic: Augmentation -Normal: Reflux - None. 5. Peroneal Vein: 5.1. Compressibility - Fully compressible: Thrombus - None: Flow - Phasic: Augmentation -Normal: Reflux - None. 6. Great Saphenous Vein: 6.1. Compressibility - Fully compressible: Thrombus - None: Flow - Phasic: Augmentation - Normal: Reflux - None. OTHER FINDINGS: Right: None significant. Left: None significant. IMPRESSION: Right: No evidence of deep or superficial vein thrombosis of the right lower extremity. Normal valve function noted of the right side. Left: No evidence of deep or superficial vein thrombosis of the left lower extremity. Normal valve function noted of the left side.
[2017-08-15 19:03] LABS: LEGIONELLA AG URINE NEGATIVE (NEGATIVE)
--- NOTE | 2017-08-15 19:54 | CARD ---
APPROVED REPORT EKG Measurement Heart [id number] <Conclusion> Sinus tachycardia Otherwise normal ECG
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
--- NOTE | 2017-08-15 23:50 | CARD ---
APPROVED REPORT EXAM: Two-dimensional and M-mode echocardiogram with Doppler and color Doppler. Other Information Quality : GoodRhythm : INDICATION Infection:Rule out subacute bacterial endocarditis Respitory Failure/ infected leg wound 2D DIMENSIONS IVSd1.0 (0.7-1.1cm)LVDd4.5 (3.9-5.9cm) PWd1.0 (0.7-1.1cm)LVDs3.0 (2.5-4.0cm) FS (%) 32.4 %LVEF (%)60.8 (>50%) M-Mode DIMENSIONS Left Atrium (MM)2.63 (2.5-4.0cm)Aortic Root2.89 (2.2-3.7cm) Aortic Cusp Exc.2.41 (1.5-2.0cm) Mitral Valve MV E Nasrdwzp15.5cm/sMV A Jnfwfcax29.9cm/s LEFT VENTRICLE The left ventricle is normal size. There is normal left ventricular wall thickness. Left ventricle systolic function is normal. The Ejection Fraction is 60-65%. There is normal LV segmental wall motion. The left ventricular diastolic function is normal. There is no ventricular septal defect visualized. RIGHT VENTRICLE The right ventricle is normal size. The right ventricular systolic function is normal. ATRIA The left atrium size is normal. The right atrium size is normal. AORTIC VALVE The aortic valve is mildly thickened. The aortic valve is tri-cuspid. The aortic valve is not well visualized. No aortic regurgitation is present. There is no aortic valvular stenosis. Cannot exclude aortic valvular vegetation. Meng is more specific to r/o vegetation. MITRAL VALVE The mitral valve is normal in structure. There is no evidence of mitral valve prolapse. There is no mitral valve regurgitation noted. TRICUSPID VALVE The tricuspid valve is normal in structure. There is no tricuspid valve regurgitation noted. There is no tricuspid valve stenosis. PULMONIC VALVE The pulmonic valve is not well visualized. There is no pulmonic valvular regurgitation. GREAT VESSELS The aortic root is normal in size. The ascending aorta is normal in size. The IVC is normal in size and collapses >50% with inspiration. PERICARDIAL EFFUSION There is no pericardial effusion. <Conclusion> Left ventricle systolic function is normal. The Ejection Fraction is 60-65%. The left ventricular diastolic function is normal. Cannot exclude aortic valvular vegetation. Meng is more specific to r/o vegetation.
[2017-08-16] MEDS: Piperacill/Tazo 3.375gm in Dex 3.375 GM/50 ML BAG IVPB SCH ×4 (00:17→18:08)
[2017-08-16] MEDS: Vancomycin 1 gm/NS 200 ml 1 GM/200 ML BAG IVPB SCH ×2 (00:20→12:59)
[2017-08-16] MEDS: Sodium Chloride 0.9% 1,000 ML IV SCH ×3 (00:21→12:40)
[2017-08-16] MEDS: Propofol 10 mg/ml 1,000 MG/100 ML VIAL IV PRN ×6 (00:54→21:53)
[2017-08-16 05:55] LABS: ABG ALLEN TEST POS; ARTERIAL BLOOD GAS HCO3 25.5 mmol/L (21-28); ARTERIAL BLOOD GAS HEMOGLOBIN 11.8 g/dL (11.7-17.4); ARTERIAL BLOOD GAS O2 SAT 99.9 % (95-98); ARTERIAL BLOOD GAS PCO2 47 mm/Hg (35-45); ARTERIAL BLOOD GAS PH 7.36 (7.35-7.45); ARTERIAL BLOOD GAS PO2 128 mm/Hg (80-100)
[2017-08-16 06:06] LABS: BASO % 0.3 % (0.0-2.0); EOS % 0.2 % (0.0-4.0); LYMPH # 0.9 K/uL (1.0-4.3); LYMPH % 5.8 % (20.0-40.0); MEAN CELL VOLUME 84.5 fL (80.0-94.0); MEAN CORPUSCULAR HEMOGLOBIN 28.5 pg (27.0-31.0); MEAN CORPUSCULAR HGB CONC 33.7 g/dL (33.0-37.0); MEAN PLATELET VOLUME 8.4 fL (7.2-11.7); MONO # 0.7 K/uL (0.0-0.8); MONO % 4.4 % (0.0-10.0); NEUT # 14.3 K/uL (1.8-7.0); NEUT % 89.3 % (50.0-75.0); NRBC % 0.3 % (0.0-2.0); PLATELET COUNT 210 K/uL (130-400); RBC 4.22 Mil/uL (4.40-5.90); RED CELL DISTRIBUTION WIDTH 14.1 % (11.5-14.5)
[2017-08-16 06:17] LABS: VANCOMYCIN RANDOM 19.65 ug/mL
[2017-08-16 06:31] LABS: ALB/GLOB RATIO 0.8 (1.0-2.1); ALBUMIN 3.1 g/dL (3.5-5.0); ALT/SGPT 27 U/L (21-72); AST/SGOT 26 U/L (17-59); BLOOD UREA NITROGEN 22 mg/dL (9-20); CALCIUM 8.3 mg/dl (8.6-10.4); GFR AFRICAN-AMERICAN > 60; GFR NON-AFRICAN AMERICAN > 60
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
[2017-08-16 06:57] LABS: HIV 1&2 ANTIBODY NEGATIVE (NEGATIVE)
--- NOTE | 2017-08-16 08:29 | RAD ---
HISTORY: intubated COMPARISON: 08/15/2017 FINDINGS: LUNGS: Improving patchy bilateral opacity, right greater than left. PLEURA: No significant pleural effusion identified, no pneumothorax apparent. CARDIOVASCULAR: Endotracheal tube and nasogastric tube noted, grossly unchanged in position. OSSEOUS STRUCTURES: No significant abnormalities. VISUALIZED UPPER ABDOMEN: Normal. OTHER FINDINGS: None. IMPRESSION: Mild improvement in bilateral pulmonary opacity. Resolving pneumonia versus improving pulmonary edema. ETT and NG tube noted.
[2017-08-16 10:02] LABS: BANDS 20 % (0-2); LYMPHOCYTE 6 % (20-40); MONOCYTE 10 % (0-10); NEUTROPHIL 64 % (50-75); PLATELET ESTIMATE NORMAL (NORMAL); TOTAL CELLS COUNTED 100
[2017-08-16 10:03] LABS: ANISOCYTOSIS SLIGHT; HYPOCHROMIC SLIGHT; POIKILOCYTOSIS SLIGHT
[2017-08-16 11:48] LABS: HEPATITIS B SURFACE AG Negative (NEGATIVE)
[2017-08-16 11:54] LABS: HEPATITIS A IGM NEGATIVE (NEGATIVE); HEPATITIS B CORE AB NEGATIVE (NEGATIVE)
[2017-08-16 12:06] LABS: HEPATITIS C ANTIBODY NEGATIVE (NEGATIVE)
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
--- NOTE | 2017-08-16 14:29 | CP.CCUPN ---
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 Puncture Site Rr pCO2 47 H (35-45) mm/Hg pO2 128 H (80-100) mm/Hg HCO3 25.5 (21-28) mmol/L ABG pH 7.36 (7.35-7.45) ABG Total CO2 28.0 (22-28) mmol/L ABG O2 Saturation 99.9 H (95-98) % ABG Base Excess 0.7 (-2.0-3.0) mmol/L ABG Hemoglobin 11.8 (11.7-17.4) g/dL ABG Carboxyhemoglobin 1.8 H (0.5-1.5) % POC ABG HHb (Measured) 0.1 (0.0-5.0) % ABG Methemoglobin 1.4 (0.0-3.0) % [place] Test Pos A-a O2 Difference 241.0 mm/Hg Respiratory Index 1.9 Hgb O2 Saturation 96.8 (95.0-98.0) % Vent Mode Prvc Mechanical Rate 20 FiO2 60.0 % Tidal Volume 450 PEEP 10 Sodium 141 (132-148) mmol/L Potassium 4.5 (3.6-5.2) mmol/L Chloride 106 (98-107) mmol/L Carbon Dioxide 25 (22-30) mmol/L Anion Gap 15 (10-20) BUN 22 H (9-20) mg/dL Creatinine 1.3 (0.8-1.5) mg/dL Est GFR ( Amer) > 60 Est GFR (Non-Af Amer) > 60 POC Glucose (mg/dL) (65-110) mg/dL Random Glucose 125 H (75-110) mg/dL Calcium 8.3 L (8.6-10.4) mg/dl Phosphorus 3.2 (2.5-4.5) mg/dL Magnesium 1.9 (1.6-2.3) mg/dL Total Bilirubin 1.0 (0.2-1.3) mg/dL AST 26 (17-59) U/L ALT 27 (21-72) U/L Alkaline Phosphatase 89 (38-126) U/L Troponin I (0.00-0.120) ng/mL Total Protein 7.0 (6.3-8.3) g/dL Albumin 3.1 L (3.5-5.0) g/dL Globulin 3.8 (2.2-3.9) gm/dL Albumin/Globulin Ratio 0.8 L (1.0-2.1) Procalcitonin (0.19-0.49) NG/ML Random Vancomycin 19.65 ug/mL Hepatitis A IgM Ab (NEGATIVE) Hep Bs Antigen (NEGATIVE) Hep B Core IgM Ab (NEGATIVE) Hepatitis C Antibody (NEGATIVE) HIV 1&2 Antibody Screen Negative (NEGATIVE) Ur L.pneumophila Ag (NEGATIVE) 08/16/17 08/15/17 08/15/17 Range/Units 00:07 21:15 21:15 WBC (4.8-10.8) K/uL RBC (4.40-5.90) Mil/uL Hgb (12.0-18.0) g/dL Hct (35.0-51.0) % MCV (80.0-94.0) fL MCH (27.0-31.0) pg MCHC (33.0-37.0) g/dL RDW (11.5-14.5) % Plt Count (130-400) K/uL MPV (7.2-11.7) fL Neut % (Auto) (50.0-75.0) % Lymph % (Auto) (20.0-40.0) % [place] % (Auto) (0.0-10.0) % Eos % (Auto) (0.0-4.0) % Baso % (Auto) (0.0-2.0) % Neut # (Auto) (1.8-7.0) K/uL Lymph # (Auto) (1.0-4.3) K/uL [place] # (Auto) (0.0-0.8) K/uL Eos # (Auto) (0.0-0.7) K/uL Baso # (Auto) (0.0-0.2) K/uL Neutrophils % (Manual) (50-75) % Band Neutrophils % (0-2) % Lymphocytes % (Manual) (20-40) % Monocytes % (Manual) (0-10) % Platelet Estimate (NORMAL) Hypochromasia (manual) Poikilocytosis (manual Anisocytosis (manual) Puncture Site pCO2 (35-45) mm/Hg pO2 (80-100) mm/Hg HCO3 (21-28) mmol/L ABG pH (7.35-7.45) ABG Total CO2 (22-28) mmol/L ABG O2 Saturation (95-98) % ABG Base Excess (-2.0-3.0) mmol/L ABG Hemoglobin (11.7-17.4) g/dL ABG Carboxyhemoglobin (0.5-1.5) % POC ABG HHb (Measured) (0.0-5.0) % ABG Methemoglobin (0.0-3.0) % [place]is Test A-a O2 Difference mm/Hg Respiratory Index Hgb O2 Saturation (95.0-98.0) % Vent Mode Mechanical Rate FiO2 % Tidal Volume PEEP Sodium (132-148) mmol/L Potassium (3.6-5.2) mmol/L Chloride (98-107) mmol/L Carbon Dioxide (22-30) mmol/L Anion Gap (10-20) BUN (9-20) mg/dL Creatinine (0.8-1.5) mg/dL Est GFR ( Amer) Est GFR (Non-Af Amer) POC Glucose (mg/dL) 109 (65-110) mg/dL Random Glucose (75-110) mg/dL Calcium (8.6-10.4) mg/dl Phosphorus (2.5-4.5) mg/dL Magnesium (1.6-2.3) mg/dL Total Bilirubin (0.2-1.3) mg/dL AST (17-59) U/L ALT (21-72) U/L Alkaline Phosphatase (38-126) U/L Troponin I < 0.0120 (0.00-0.120) ng/mL Total Protein (6.3-8.3) g/dL Albumin (3.5-5.0) g/dL Globulin (2.2-3.9) gm/dL Albumin/Globulin Ratio (1.0-2.1) Procalcitonin 60.35 H (0.19-0.49) NG/ML Random Vancomycin ug/mL Hepatitis A IgM Ab (NEGATIVE) Hep Bs Antigen (NEGATIVE) Hep B Core IgM Ab (NEGATIVE) Hepatitis C Antibody (NEGATIVE) HIV 1&2 Antibody Screen (NEGATIVE) Ur L.pneumophila Ag (NEGATIVE) 08/15/17 08/15/17 Range/Units 17:23 12:21 WBC (4.8-10.8) K/uL RBC (4.40-5.90) Mil/uL Hgb (12.0-18.0) g/dL Hct (35.0-51.0) % MCV (80.0-94.0) fL MCH (27.0-31.0) pg MCHC (33.0-37.0) g/dL RDW (11.5-14.5) % Plt Count (130-400) K/uL MPV (7.2-11.7) fL Neut % (Auto) (50.0-75.0) % Lymph % (Auto) (20.0-40.0) % [place] % (Auto) (0.0-10.0) % Eos % (Auto) (0.0-4.0) % Baso % (Auto) (0.0-2.0) % Neut # (Auto) (1.8-7.0) K/uL Lymph # (Auto) (1.0-4.3) K/uL [place] # (Auto) (0.0-0.8) K/uL Eos # (Auto) (0.0-0.7) K/uL Baso # (Auto) (0.0-0.2) K/uL Neutrophils % (Manual) (50-75) % Band Neutrophils % (0-2) % Lymphocytes % (Manual) (20-40) % Monocytes % (Manual) (0-10) % Platelet Estimate (NORMAL) Hypochromasia (manual) Poikilocytosis (manual Anisocytosis (manual) Puncture Site pCO2 (35-45) mm/Hg pO2 (80-100) mm/Hg HCO3 (21-28) mmol/L ABG pH (7.35-7.45) ABG Total CO2 (22-28) mmol/L ABG O2 Saturation (95-98) % ABG Base Excess (-2.0-3.0) mmol/L ABG Hemoglobin (11.7-17.4) g/dL ABG Carboxyhemoglobin (0.5-1.5) % POC ABG HHb (Measured) (0.0-5.0) % ABG Methemoglobin (0.0-3.0) % [place] Test A-a O2 Difference mm/Hg Respiratory Index Hgb O2 Saturation (95.0-98.0) % Vent Mode Mechanical Rate FiO2 % Tidal Volume PEEP Sodium (132-148) mmol/L Potassium (3.6-5.2) mmol/L Chloride (98-107) mmol/L Carbon Dioxide (22-30) mmol/L Anion Gap (10-20) BUN (9-20) mg/dL Creatinine (0.8-1.5) mg/dL Est GFR ( Amer) Est GFR (Non-Af Amer) POC Glucose (mg/dL) 103 (65-110) mg/dL Random Glucose (75-110) mg/dL Calcium (8.6-10.4) mg/dl Phosphorus (2.5-4.5) mg/dL Magnesium (1.6-2.3) mg/dL Total Bilirubin (0.2-1.3) mg/dL AST (17-59) U/L ALT (21-72) U/L Alkaline Phosphatase (38-126) U/L Troponin I (0.00-0.120) ng/mL Total Protein (6.3-8.3) g/dL Albumin (3.5-5.0) g/dL Globulin (2.2-3.9) gm/dL Albumin/Globulin Ratio (1.0-2.1) Procalcitonin (0.19-0.49) NG/ML Random Vancomycin ug/mL Hepatitis A IgM Ab (NEGATIVE) Hep Bs Antigen (NEGATIVE) Hep B Core IgM Ab (NEGATIVE) Hepatitis C Antibody (NEGATIVE) HIV 1&2 Antibody Screen (NEGATIVE) Ur L.pneumophila Ag Negative (NEGATIVE) Laboratory Results - last 24 hr 08/15/17 08/15/17 08/15/17 12:21 17:23 21:15 WBC RBC Hgb Hct MCV MCH MCHC RDW Plt Count MPV Neut % (Auto) Lymph % (Auto) [place] % (Auto) Eos % (Auto) Baso % (Auto) Neut # (Auto) Lymph # (Auto) [place] # (Auto) Eos # (Auto) Baso # (Auto) Neutrophils % (Manual) Band Neutrophils % Lymphocytes % (Manual) Monocytes % (Manual) Platelet Estimate Hypochromasia (manual) Poikilocytosis (manual Anisocytosis (manual) Puncture Site pCO2 pO2 HCO3 ABG pH ABG Total CO2 ABG O2 Saturation ABG Base Excess ABG Hemoglobin ABG Carboxyhemoglobin POC ABG HHb (Measured) ABG Methemoglobin [place] Test A-a O2 Difference Respiratory Index Hgb O2 Saturation Vent Mode Mechanical Rate FiO2 Tidal Volume PEEP Sodium Potassium Chloride Carbon Dioxide Anion Gap BUN Creatinine Est GFR ( Amer) Est GFR (Non-Af Amer) POC Glucose (mg/dL) 103 Random Glucose Calcium Phosphorus Magnesium Total Bilirubin AST ALT Alkaline Phosphatase Troponin I < 0.0120 Total Protein Albumin Globulin Albumin/Globulin Ratio Procalcitonin Random Vancomycin Hepatitis A IgM Ab Hep Bs Antigen Hep B Core IgM Ab Hepatitis C Antibody HIV 1&2 Antibody Screen Ur L.pneumophila Ag Negative 08/15/17 08/16/17 08/16/17 21:15 00:07 05:22 WBC RBC Hgb Hct MCV MCH MCHC RDW Plt Count MPV Neut % (Auto) Lymph % (Auto) [place] % (Auto) Eos % (Auto) Baso % (Auto) Neut # (Auto) Lymph # (Auto) [place] # (Auto) Eos # (Auto) Baso # (Auto) Neutrophils % (Manual) Band Neutrophils % Lymphocytes % (Manual) Monocytes % (Manual) Platelet Estimate Hypochromasia (manual) Poikilocytosis (manual Anisocytosis (manual) Puncture Site Rr pCO2 47 H pO2 128 H HCO3 25.5 ABG pH 7.36 ABG Total CO2 28.0 ABG O2 Saturation 99.9 H ABG Base Excess 0.7 ABG Hemoglobin 11.8 ABG Carboxyhemoglobin 1.8 H POC ABG HHb (Measured) 0.1 ABG Methemoglobin 1.4 [place] Test Pos A-a O2 Difference 241.0 Respiratory Index 1.9 Hgb O2 Saturation 96.8 Vent Mode Prvc Mechanical Rate 20 FiO2 60.0 Tidal Volume 450 PEEP 10 Sodium Potassium Chloride Carbon Dioxide Anion Gap BUN Creatinine Est GFR ( Amer) Est GFR (Non-Af Amer) POC Glucose (mg/dL) 109 Random Glucose Calcium Phosphorus Magnesium Total Bilirubin AST ALT Alkaline Phosphatase Troponin I Total Protein Albumin Globulin Albumin/Globulin Ratio Procalcitonin 60.35 H Random Vancomycin Hepatitis A IgM Ab Hep Bs Antigen Hep B Core IgM Ab Hepatitis C Antibody HIV 1&2 Antibody Screen Ur L.pneumophila Ag 08/16/17 08/16/17 08/16/17 05:44 05:44 05:46 WBC 16.0 H D RBC 4.22 L Hgb 12.0 D Hct 35.7 MCV 84.5 MCH 28.5 MCHC 33.7 RDW 14.1 Plt Count 210 MPV 8.4 Neut % (Auto) 89.3 H Lymph % (Auto) 5.8 L [place] % (Auto) 4.4 Eos % (Auto) 0.2 Baso % (Auto) 0.3 Neut # (Auto) 14.3 H Lymph # (Auto) 0.9 L [place] # (Auto) 0.7 Eos # (Auto) 0.0 Baso # (Auto) 0.0 Neutrophils % (Manual) 64 Band Neutrophils % 20 H* Lymphocytes % (Manual) 6 L Monocytes % (Manual) 10 Platelet Estimate Normal Hypochromasia (manual) Slight Poikilocytosis (manual Slight Anisocytosis (manual) Slight Puncture Site pCO2 pO2 HCO3 ABG pH ABG Total CO2 ABG O2 Saturation ABG Base Excess ABG Hemoglobin ABG Carboxyhemoglobin POC ABG HHb (Measured) ABG Methemoglobin [place] Test A-a O2 Difference Respiratory Index Hgb O2 Saturation Vent Mode Mechanical Rate FiO2 Tidal Volume PEEP Sodium 141 Potassium 4.5 Chloride 106 Carbon Dioxide 25 Anion Gap 15 BUN 22 H Creatinine 1.3 Est GFR ( Amer) > 60 Est GFR (Non-Af Amer) > 60 POC Glucose (mg/dL) Random Glucose 125 H Calcium 8.3 L Phosphorus 3.2 Magnesium 1.9 Total Bilirubin 1.0 AST 26 ALT 27 Alkaline Phosphatase 89 Troponin I Total Protein 7.0 Albumin 3.1 L Globulin 3.8 Albumin/Globulin Ratio 0.8 L Procalcitonin Random Vancomycin 19.65 Hepatitis A IgM Ab Hep Bs Antigen Hep B Core IgM Ab Hepatitis C Antibody HIV 1&2 Antibody Screen Negative Ur L.pneumophila Ag 08/16/17 08/16/17 10:55 11:42 WBC RBC Hgb Hct MCV MCH MCHC RDW Plt Count MPV Neut % (Auto) Lymph % (Auto) [place] % (Auto) Eos % (Auto) Baso % (Auto) Neut # (Auto) Lymph # (Auto) [place] # (Auto) Eos # (Auto) Baso # (Auto) Neutrophils % (Manual) Band Neutrophils % Lymphocytes % (Manual) Monocytes % (Manual) Platelet Estimate Hypochromasia (manual) Poikilocytosis (manual Anisocytosis (manual) Puncture Site pCO2 pO2 HCO3 ABG pH ABG Total CO2 ABG O2 Saturation ABG Base Excess ABG Hemoglobin ABG Carboxyhemoglobin POC ABG HHb (Measured) ABG Methemoglobin [place] Test A-a O2 Difference Respiratory Index Hgb O2 Saturation Vent Mode Mechanical Rate FiO2 Tidal Volume PEEP Sodium Potassium Chloride Carbon Dioxide Anion Gap BUN Creatinine Est GFR ( Amer) Est GFR (Non-Af Amer) POC Glucose (mg/dL) 81 Random Glucose Calcium Phosphorus Magnesium Total Bilirubin AST ALT Alkaline Phosphatase Troponin I Total Protein Albumin Globulin Albumin/Globulin Ratio Procalcitonin Random Vancomycin Hepatitis A IgM Ab Negative Hep Bs Antigen Negative Hep B Core IgM Ab Negative Hepatitis C Antibody Negative HIV 1&2 Antibody Screen Ur L.pneumophila Ag Critical Care Progress Note - Nutrition Nutrition: Nutrition Category Date Time Status NPO Diet [DIET] Diets 08/15/17 Breakfast Active Attending/Attestation - Attestation I have personally seen and examined this patient.: Yes I have fully participated in the care of the patient.: Yes I have reviewed all pertinent clinical information: Yes Notes (Text): 08/16/17 17:27 patient seen and examined in the intensive care unit. Resolving pneumonia Continue ventilatory support and to reduce FiO2 astolerated Continue IV antibiotics NGT feeding Continue IV sedation Follow-up chest x-ray and ABG
--- NOTE | 2017-08-16 16:53 | CT ---
PROCEDURE: CT right lower extremity HISTORY: purluent wound, check for osteomyeltis COMPARISON: Not available TECHNIQUE: 2.5 mm contiguous axial sections were acquired through the right lower extremity from the proximal tibial diaphysis through the hindfoot. No intravenous contrast was administered this examination. Total exam DLP: 506.82 mGy-cm. This CT exam was performed using 1 or more of the following dose reduction techniques: Automated exposure control, adjustment of the mA and/or kV according to patient size, and/or use of iterative reconstruction technique. FINDINGS: The patient is status post O are I have fracture of distal tibial diaphysis and fibular diaphysis. The plate and screw fixation device is seen along the medial aspect of the tibia and along the lateral aspect of the fibula. There is productive bony change seen about the tibial fracture consistent with fracture healing. There is bony lie cysts along the lateral aspect of the medial tibial fixation plate in its distal extent. Uncertain significance. There is no acute fracture. There is no lytic or blastic osseous lesion otherwise identified. There is no soft tissue abscess identified. Please note that evaluation is limited due to extensive beam hardening artifact arising from metallic fixation hardware. IMPRESSION: No soft tissue abscess identified. Bony lie cysts noted about the distal tibial fixation plate, of uncertain significance. Status post ORIF tibial and fibular diaphyseal fracture. Limited examination due to beam hardening artifact. Cannot exclude osteomyelitis on the basis of this CT examination.
--- NOTE | 2017-08-16 21:49 | CP.PCM.PN ---
Subjective - Date & Time of Evaluation Date of Evaluation: 08/16/17 Time of Evaluation: 02:40 - Subjective Subjective: dictated Objective - Vital Signs/Intake and Output Vital Signs (last 24 hours): Temp Pulse Resp BP Pulse Ox 99.0 F 63 20 110/55 L 100 08/16/17 16:00 08/16/17 21:05 08/16/17 21:05 08/16/17 21:05 08/16/17 21:05 Intake and Output: 08/16/17 08/17/17 18:59 06:59 Intake Total 1763 124 Output Total 800 0 Balance 963 124 - Medications Medications: Current Medications Acetaminophen (Tylenol 650 Mg Supp) 650 mg MT Q6 PRN PRN Reason: Temperature Famotidine (Pepcid) 20 mg IVP Q12 ZAINA Last Admin: 08/16/17 21:05 Dose: 20 mg Heparin Sodium (Porcine) (Heparin) 5,000 units SC Q8 ZAINA Last Admin: 08/16/17 21:04 Dose: 5,000 units Propofol (Diprivan) 1,000 mg in 100 mls @ 7.2 mls/hr IV .[id number] PRN; Protocol ; 15 MCG/KG/MIN PRN Reason: TITRATE PER MD ORDER Last Admin: 08/16/17 18:08 Dose: 50 mcg/kg/min, 24 mls/hr Piperacillin Sod/Tazobactam Sod (Zosyn 3.375 Gm Iv Premix) 3.375 gm in 50 mls @ 100 mls/hr IVPB Q6H ZAINA PRN Reason: Protocol Last Admin: 08/16/17 18:08 Dose: 100 mls/hr Vancomycin/Sodium Chloride (Vancomycin 1 Gm/Ns 200 Ml) 1 gm in 200 mls @ 133.333 mls/hr IVPB Q12H ZAINA PRN Reason: Protocol Stop: 08/20/17 13:01 Last Admin: 08/16/17 12:59 Dose: 133.333 mls/hr Sodium Chloride (Sodium Chloride 0.9%) 1,000 mls @ 75 mls/hr IV .[id number] ZAINA Last Admin: 08/16/17 12:40 Dose: Not Given - Labs Labs: 08/16/17 05:46 08/16/17 05:44 PT 12.1 SECONDS (9.7-12.2) 08/14/17 23:27 INR 1.1 08/14/17 23:27 APTT 32 SECONDS (21-34) 08/14/17 23:27
[2017-08-16 22:33] LABS: SQUAMOUS EPITHIAL < 1 /hpf (0-5); URINE BACTERIA RARE (<OCC); URINE BILIRUBIN NEGATIVE (NEGATIVE); URINE BLOOD NEGATIVE (NEGATIVE); URINE CLARITY Clear (Clear); URINE COLOR Yellow (YELLOW); URINE GLUCOSE (UA) NORMAL (Normal); URINE LEUKOCYTE ESTERASE NEG Leu/uL (Negative); URINE PROTEIN NEGATIVE (NEGATIVE); URINE UROBILINOGEN NORMAL mg/dL (0.2-1.0)
[2017-08-17] MEDS: Piperacill/Tazo 3.375gm in Dex 3.375 GM/50 ML BAG IVPB SCH ×4 (00:14→18:33)
[2017-08-17 01:50] LABS: BASO # 0.1 K/uL (0.0-0.2); BASO % 0.5 % (0.0-2.0); EOS # 0.3 K/uL (0.0-0.7); EOS % 2.1 % (0.0-4.0); HEMOGLOBIN 10.9 g/dL (12.0-18.0); LYMPH # 1.2 K/uL (1.0-4.3); MEAN CELL VOLUME 85.4 fL (80.0-94.0); MEAN CORPUSCULAR HEMOGLOBIN 28.2 pg (27.0-31.0); MEAN PLATELET VOLUME 8.5 fL (7.2-11.7); MONO # 0.7 K/uL (0.0-0.8); NEUT # 14.3 K/uL (1.8-7.0); NEUT % 86.4 % (50.0-75.0); PLATELET COUNT 211 K/uL (130-400); RBC 3.86 Mil/uL (4.40-5.90); WHITE BLOOD COUNT 16.5 K/uL (4.8-10.8)
[2017-08-17] MEDS: Vancomycin 1 gm/NS 200 ml 1 GM/200 ML BAG IVPB SCH ×2 (02:11→12:00)
[2017-08-17 02:14] LABS: ALB/GLOB RATIO 0.8 (1.0-2.1); ALT/SGPT 34 U/L (21-72); AST/SGOT 20 U/L (17-59); BLOOD UREA NITROGEN 18 mg/dL (9-20); CALCIUM 8.1 mg/dl (8.6-10.4); GFR AFRICAN-AMERICAN > 60; GFR NON-AFRICAN AMERICAN > 60
[2017-08-17] MEDS: Propofol 10 mg/ml 1,000 MG/100 ML VIAL IV PRN (02:32)
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
[2017-08-17 02:46] LABS: BANDS 16 % (0-2); EOSINOPHIL 5 % (0-4); LYMPHOCYTE 8 % (20-40); MONOCYTE 9 % (0-10); NEUTROPHIL 62 % (50-75); PLATELET ESTIMATE NORMAL (NORMAL); TOTAL CELLS COUNTED 100
[2017-08-17] MEDS: Sodium Chloride 0.9% 1,000 ML IV SCH ×2 (02:51→15:20)
[2017-08-17 05:47] LABS: ABG ALLEN TEST POS; ARTERIAL BLOOD GAS HCO3 25.8 mmol/L (21-28); ARTERIAL BLOOD GAS HEMOGLOBIN 10.9 g/dL (11.7-17.4); ARTERIAL BLOOD GAS O2 SAT 98.6 % (95-98); ARTERIAL BLOOD GAS PCO2 45 mm/Hg (35-45); ARTERIAL BLOOD GAS PH 7.38 (7.35-7.45); ARTERIAL BLOOD GAS PO2 85 mm/Hg (80-100)
--- NOTE | 2017-08-17 07:47 | RAD ---
HISTORY: intubated COMPARISON: Portable chest 08/16/2017. FINDINGS: Endotracheal and nasogastric tubes are unchanged in position. LUNGS: Interval further reduction in mid right and bilateral basilar patchy infiltrates. PLEURA: No significant pleural effusion identified, no pneumothorax apparent. CARDIOVASCULAR: Normal cardiac silhouette again evident with stable appearing pulmonary vascular pattern. OSSEOUS STRUCTURES: No significant abnormalities. VISUALIZED UPPER ABDOMEN: Normal. OTHER FINDINGS: None. IMPRESSION: Mild improvement in bilateral pulmonary infiltrates or pulmonary edema once again.
--- NOTE | 2017-08-17 08:58 | CP.CCUPN ---
<Janet Licona - Last Filed: 08/17/17 11:14> CCU Subjective - Physician Review Subjective (Free Text): 08/17/17 08:58 Patient seen and examined at bedside. Per nursing no acute events overnight. Patient currently off sedation and on CPAP trial. Opens eyes and moving extremities. For possible extubation later today. CCU Objective - Vital Signs / Intake & Output Vital Signs (Last 4 hours): Vital Signs Pulse Resp BP Pulse Ox 08/17/17 08:05 64 19 127/61 100 08/17/17 08:00 67 20 100 08/17/17 07:05 68 20 114/63 100 08/17/17 07:00 74 20 100 08/17/17 06:13 72 20 121/65 100 08/17/17 06:00 67 20 100 08/17/17 05:05 77 20 129/58 L 100 08/17/17 05:00 64 20 100 Intake and Output (Last 8hrs): Intake & Output 08/16/17 08/17/17 08/17/17 22:59 06:59 14:59 Intake Total 1292 1204.5 285 Output Total 725 625 125 Balance 567 579.5 160 Weight 100.788 kg Intake: IV 200 100 85 Intake, IV Amount 892 904.5 150 Left Antecubital 700 712.5 150 Right Antecubital 192 192 0 Tube Feeding 200 200 50 Output: Urine 725 625 125 Urethral (Liang) 725 625 125 - Physical Exam Other physical findings (Free Text): - Constitutional Appears: Non-toxic, no acute distress - Head Exam Head Exam: NORMAL INSPECTION - Eye Exam Eye Exam: EOMI, PERRL - ENT Exam ENT Exam: Mucous Membranes Moist, ETT tube in place, +NGT - Respiratory Exam Respiratory Exam: Decreased Breath Sounds, Rales, Rhonchi Additional comments: intubated and off sedation - GI/Abdominal Exam GI & Abdominal Exam: Soft, Normal Bowel Sounds. absent: Distended, Firm, Guarding, Rigid, Rebound - Extremities Exam Extremities Exam: Pedal Edema, Tenderness Additional comments: prevalon boots, Right ankle dressing intact, +RLE edema, +right arm swelling - Neurological Exam Neurological Exam: Awake, alert, moves extremities, responds to verbal stimuli - Skin Skin Exam: Normal Color, Warm - Medications Active Medications: Active Medications Generic Name Dose Route Start Last Admin Trade Name Freq PRN Reason Stop Dose Admin Acetaminophen 650 mg 08/15/17 08:17 Tylenol 650 Mg Supp [place] Q6 PRN Temperature Famotidine 20 mg 08/15/17 00:45 08/16/17 21:05 Pepcid IVP 20 mg Q12 ZAINA Administration Heparin Sodium (Porcine) 5,000 units 08/15/17 00:45 08/17/17 06:11 Heparin SC 5,000 units Q8 ZAINA Administration Propofol 1,000 mg in 100 mls @ 7.2 mls/hr 08/14/17 23:56 08/17/17 07:10 Diprivan IV 0 mcg/kg/min .[id number] PRN 0 mls/hr TITRATE PER MD ORDER Titration Protocol 15 MCG/KG/MIN Piperacillin Sod/Tazobactam Sod 3.375 gm in 50 mls @ 100 mls/hr 08/15/17 07: 00 08/17/17 06:14 Zosyn 3.375 Gm Iv Premix IVPB 100 mls/hr Q6H ZAINA Administration Protocol Vancomycin/Sodium Chloride 1 gm in 200 mls @ 133.333 mls/hr 08/15/17 13:00 02:11 Vancomycin 1 Gm/Ns 200 Ml IVPB 08/20/17 13:01 133.333 mls/hr Q12H ZAINA Administration Protocol Sodium Chloride 1,000 mls @ 75 mls/hr 08/15/17 10:00 08/17/17 02:51 Sodium Chloride 0.9% IV 75 mls/hr .[id number] ZAINA Administration - Patient Studies Lab Studies: Microbiology Studies 08/15/17 00:00 Blood Culture - Preliminary Blood NO GROWTH AFTER 48 HOURS 08/15/17 02:30 Blood Culture - Preliminary Blood NO GROWTH AFTER 48 HOURS 08/15/17 01:14 MRSA Culture (Admit) - Final Nose MRSA NOT DETECTED 08/15/17 Unknown Urine Culture - Final Urine,Catheterized No Growth (<1,000 CFU/ML) 08/15/17 00:13 Gram Stain - Preliminary Leg - Right 08/15/17 11:02 Gram Stain - Preliminary Leg - Right Wound Culture - Preliminary Staphylococcus Aureus Lab Studies 08/17/17 08/17/17 08/17/17 Range/Units 05:20 01:44 01:44 WBC 16.5 H (4.8-10.8) K/uL RBC 3.86 L (4.40-5.90) Mil/uL Hgb 10.9 L (12.0-18.0) g/dL Hct 32.9 L (35.0-51.0) % MCV 85.4 (80.0-94.0) fL MCH 28.2 (27.0-31.0) pg MCHC 33.0 (33.0-37.0) g/dL RDW 14.0 (11.5-14.5) % Plt Count 211 (130-400) K/uL MPV 8.5 (7.2-11.7) fL Neut % (Auto) 86.4 H (50.0-75.0) % Lymph % (Auto) 7.0 L (20.0-40.0) % [place] % (Auto) 4.0 (0.0-10.0) % Eos % (Auto) 2.1 (0.0-4.0) % Baso % (Auto) 0.5 (0.0-2.0) % Neut # (Auto) 14.3 H (1.8-7.0) K/uL Lymph # (Auto) 1.2 (1.0-4.3) K/uL [place] # (Auto) 0.7 (0.0-0.8) K/uL Eos # (Auto) 0.3 (0.0-0.7) K/uL Baso # (Auto) 0.1 (0.0-0.2) K/uL Neutrophils % (Manual) 62 (50-75) % Band Neutrophils % 16 H* (0-2) % Lymphocytes % (Manual) 8 L (20-40) % Monocytes % (Manual) 9 (0-10) % Eosinophils % (Manual) 5 H (0-4) % Platelet Estimate Normal (NORMAL) Hypochromasia (manual) Poikilocytosis (manual Anisocytosis (manual) Puncture Site Rr pCO2 45 (35-45) mm/Hg pO2 85 (80-100) mm/Hg HCO3 25.8 (21-28) mmol/L ABG pH 7.38 (7.35-7.45) ABG Total CO2 28.0 (22-28) mmol/L ABG O2 Saturation 98.6 H (95-98) % ABG Base Excess 1.1 (-2.0-3.0) mmol/L ABG Hemoglobin 10.9 L (11.7-17.4) g/dL ABG Carboxyhemoglobin 1.9 H (0.5-1.5) % POC ABG HHb (Measured) 1.4 (0.0-5.0) % ABG Methemoglobin 1.0 (0.0-3.0) % Haris Test Pos A-a O2 Difference 144.0 mm/Hg Respiratory Index 1.7 Hgb O2 Saturation 95.7 (95.0-98.0) % Vent Mode Prvc Mechanical Rate 20 FiO2 40.0 % Tidal Volume 450 PEEP 5 Sodium 143 (132-148) mmol/L Potassium 4.0 (3.6-5.2) mmol/L Chloride 110 H (98-107) mmol/L Carbon Dioxide 27 (22-30) mmol/L Anion Gap 10 (10-20) BUN 18 (9-20) mg/dL Creatinine 1.1 (0.8-1.5) mg/dL Est GFR ( Amer) > 60 Est GFR (Non-Af Amer) > 60 POC Glucose (mg/dL) (65-110) mg/dL Random Glucose 110 (75-110) mg/dL Calcium 8.1 L (8.6-10.4) mg/dl Phosphorus 2.0 L (2.5-4.5) mg/dL Magnesium 2.3 (1.6-2.3) mg/dL Total Bilirubin 0.7 (0.2-1.3) mg/dL AST 20 (17-59) U/L ALT 34 (21-72) U/L Alkaline Phosphatase 83 (38-126) U/L Total Protein 7.0 (6.3-8.3) g/dL Albumin 3.0 L (3.5-5.0) g/dL Globulin 3.9 (2.2-3.9) gm/dL Albumin/Globulin Ratio 0.8 L (1.0-2.1) Urine Color (YELLOW) Urine Clarity (Clear) Urine pH (5.0-8.0) Ur Specific [place] (1.003-1.030) Urine Protein (NEGATIVE) mg/dL Urine Glucose (UA) (Normal) mg/dL Urine Ketones (NEGATIVE) mg/dL Urine Blood (NEGATIVE) Urine Nitrate (NEGATIVE) Urine Bilirubin (NEGATIVE) Urine Urobilinogen (0.2-1.0) mg/dL Ur Leukocyte Esterase (Negative) Chao/uL Urine WBC (Auto) (0-5) /hpf Urine RBC (Auto) (0-3) /hpf Ur Squamous Epith Cells (0-5) /hpf Urine Bacteria (<OCC) Vancomycin Trough (5.0-10.0) ug/mL Hepatitis A IgM Ab (NEGATIVE) Hep Bs Antigen (NEGATIVE) Hep B Core IgM Ab (NEGATIVE) Hepatitis C Antibody (NEGATIVE) 08/17/17 08/16/17 08/16/17 Range/Units 01:44 23:28 22:18 WBC (4.8-10.8) K/uL RBC (4.40-5.90) Mil/uL Hgb (12.0-18.0) g/dL Hct (35.0-51.0) % MCV (80.0-94.0) fL MCH (27.0-31.0) pg MCHC (33.0-37.0) g/dL RDW (11.5-14.5) % Plt Count (130-400) K/uL MPV (7.2-11.7) fL Neut % (Auto) (50.0-75.0) % Lymph % (Auto) (20.0-40.0) % [place] % (Auto) (0.0-10.0) % Eos % (Auto) (0.0-4.0) % Baso % (Auto) (0.0-2.0) % Neut # (Auto) (1.8-7.0) K/uL Lymph # (Auto) (1.0-4.3) K/uL [place] # (Auto) (0.0-0.8) K/uL Eos # (Auto) (0.0-0.7) K/uL Baso # (Auto) (0.0-0.2) K/uL Neutrophils % (Manual) (50-75) % Band Neutrophils % (0-2) % Lymphocytes % (Manual) (20-40) % Monocytes % (Manual) (0-10) % Eosinophils % (Manual) (0-4) % Platelet Estimate (NORMAL) Hypochromasia (manual) Poikilocytosis (manual Anisocytosis (manual) Puncture Site pCO2 (35-45) mm/Hg pO2 (80-100) mm/Hg HCO3 (21-28) mmol/L ABG pH (7.35-7.45) ABG Total CO2 (22-28) mmol/L ABG O2 Saturation (95-98) % ABG Base Excess (-2.0-3.0) mmol/L ABG Hemoglobin (11.7-17.4) g/dL ABG Carboxyhemoglobin (0.5-1.5) % POC ABG HHb (Measured) (0.0-5.0) % ABG Methemoglobin (0.0-3.0) % Haris Test A-a O2 Difference mm/Hg Respiratory Index Hgb O2 Saturation (95.0-98.0) % Vent Mode Mechanical Rate FiO2 % Tidal Volume PEEP Sodium (132-148) mmol/L Potassium (3.6-5.2) mmol/L Chloride (98-107) mmol/L Carbon Dioxide (22-30) mmol/L Anion Gap (10-20) BUN (9-20) mg/dL Creatinine (0.8-1.5) mg/dL Est GFR ( Amer) Est GFR (Non-Af Amer) POC Glucose (mg/dL) 91 (65-110) mg/dL Random Glucose (75-110) mg/dL Calcium (8.6-10.4) mg/dl Phosphorus (2.5-4.5) mg/dL Magnesium (1.6-2.3) mg/dL Total Bilirubin (0.2-1.3) mg/dL AST (17-59) U/L ALT (21-72) U/L Alkaline Phosphatase (38-126) U/L Total Protein (6.3-8.3) g/dL Albumin (3.5-5.0) g/dL Globulin (2.2-3.9) gm/dL Albumin/Globulin Ratio (1.0-2.1) Urine Color Yellow (YELLOW) Urine Clarity Clear (Clear) Urine pH 5.0 (5.0-8.0) Ur Specific [place] 1.023 (1.003-1.030) Urine Protein Negative (NEGATIVE) mg/dL Urine Glucose (UA) Normal (Normal) mg/dL Urine Ketones Negative (NEGATIVE) mg/dL Urine Blood Negative (NEGATIVE) Urine Nitrate Negative (NEGATIVE) Urine Bilirubin Negative (NEGATIVE) Urine Urobilinogen Normal (0.2-1.0) mg/dL Ur Leukocyte Esterase Neg (Negative) Chao/uL Urine WBC (Auto) 1 (0-5) /hpf Urine RBC (Auto) < 1 (0-3) /hpf Ur Squamous Epith Cells < 1 (0-5) /hpf Urine Bacteria Rare (<OCC) Vancomycin Trough 10.3 H (5.0-10.0) ug/mL Hepatitis A IgM Ab (NEGATIVE) Hep Bs Antigen (NEGATIVE) Hep B Core IgM Ab (NEGATIVE) Hepatitis C Antibody (NEGATIVE) 08/16/17 08/16/17 08/16/17 Range/Units 17:40 11:42 10:55 WBC (4.8-10.8) K/uL RBC (4.40-5.90) Mil/uL Hgb (12.0-18.0) g/dL Hct (35.0-51.0) % MCV (80.0-94.0) fL MCH (27.0-31.0) pg MCHC (33.0-37.0) g/dL RDW (11.5-14.5) % Plt Count (130-400) K/uL MPV (7.2-11.7) fL Neut % (Auto) (50.0-75.0) % Lymph % (Auto) (20.0-40.0) % [place] % (Auto) (0.0-10.0) % Eos % (Auto) (0.0-4.0) % Baso % (Auto) (0.0-2.0) % Neut # (Auto) (1.8-7.0) K/uL Lymph # (Auto) (1.0-4.3) K/uL [place] # (Auto) (0.0-0.8) K/uL Eos # (Auto) (0.0-0.7) K/uL Baso # (Auto) (0.0-0.2) K/uL Neutrophils % (Manual) (50-75) % Band Neutrophils % (0-2) % Lymphocytes % (Manual) (20-40) % Monocytes % (Manual) (0-10) % Eosinophils % (Manual) (0-4) % Platelet Estimate (NORMAL) Hypochromasia (manual) Poikilocytosis (manual Anisocytosis (manual) Puncture Site pCO2 (35-45) mm/Hg pO2 (80-100) mm/Hg HCO3 (21-28) mmol/L ABG pH (7.35-7.45) ABG Total CO2 (22-28) mmol/L ABG O2 Saturation (95-98) % ABG Base Excess (-2.0-3.0) mmol/L ABG Hemoglobin (11.7-17.4) g/dL ABG Carboxyhemoglobin (0.5-1.5) % POC ABG HHb (Measured) (0.0-5.0) % ABG Methemoglobin (0.0-3.0) % Haris Test A-a O2 Difference mm/Hg Respiratory Index Hgb O2 Saturation (95.0-98.0) % Vent Mode Mechanical Rate FiO2 % Tidal Volume PEEP Sodium (132-148) mmol/L Potassium (3.6-5.2) mmol/L Chloride (98-107) mmol/L Carbon Dioxide (22-30) mmol/L Anion Gap (10-20) BUN (9-20) mg/dL Creatinine (0.8-1.5) mg/dL Est GFR ( Amer) Est GFR (Non-Af Amer) POC Glucose (mg/dL) 92 81 (65-110) mg/dL Random Glucose (75-110) mg/dL Calcium (8.6-10.4) mg/dl Phosphorus (2.5-4.5) mg/dL Magnesium (1.6-2.3) mg/dL Total Bilirubin (0.2-1.3) mg/dL AST (17-59) U/L ALT (21-72) U/L Alkaline Phosphatase (38-126) U/L Total Protein (6.3-8.3) g/dL Albumin (3.5-5.0) g/dL Globulin (2.2-3.9) gm/dL Albumin/Globulin Ratio (1.0-2.1) Urine Color (YELLOW) Urine Clarity (Clear) Urine pH (5.0-8.0) Ur Specific [place] (1.003-1.030) Urine Protein (NEGATIVE) mg/dL Urine Glucose (UA) (Normal) mg/dL Urine Ketones (NEGATIVE) mg/dL Urine Blood (NEGATIVE) Urine Nitrate (NEGATIVE) Urine Bilirubin (NEGATIVE) Urine Urobilinogen (0.2-1.0) mg/dL Ur Leukocyte Esterase (Negative) Chao/uL Urine WBC (Auto) (0-5) /hpf Urine RBC (Auto) (0-3) /hpf Ur Squamous Epith Cells (0-5) /hpf Urine Bacteria (<OCC) Vancomycin Trough (5.0-10.0) ug/mL Hepatitis A IgM Ab Negative (NEGATIVE) Hep Bs Antigen Negative (NEGATIVE) Hep B Core IgM Ab Negative (NEGATIVE) Hepatitis C Antibody Negative (NEGATIVE) 08/16/17 Range/Units 05:46 WBC (4.8-10.8) K/uL RBC (4.40-5.90) Mil/uL Hgb (12.0-18.0) g/dL Hct (35.0-51.0) % MCV (80.0-94.0) fL MCH (27.0-31.0) pg MCHC (33.0-37.0) g/dL RDW (11.5-14.5) % Plt Count (130-400) K/uL MPV (7.2-11.7) fL Neut % (Auto) (50.0-75.0) % Lymph % (Auto) (20.0-40.0) % [place] % (Auto) (0.0-10.0) % Eos % (Auto) (0.0-4.0) % Baso % (Auto) (0.0-2.0) % Neut # (Auto) (1.8-7.0) K/uL Lymph # (Auto) (1.0-4.3) K/uL [place] # (Auto) (0.0-0.8) K/uL Eos # (Auto) (0.0-0.7) K/uL Baso # (Auto) (0.0-0.2) K/uL Neutrophils % (Manual) 64 (50-75) % Band Neutrophils % 20 H* (0-2) % Lymphocytes % (Manual) 6 L (20-40) % Monocytes % (Manual) 10 (0-10) % Eosinophils % (Manual) (0-4) % Platelet Estimate Normal (NORMAL) Hypochromasia (manual) Slight Poikilocytosis (manual Slight Anisocytosis (manual) Slight Puncture Site pCO2 (35-45) mm/Hg pO2 (80-100) mm/Hg HCO3 (21-28) mmol/L ABG pH (7.35-7.45) ABG Total CO2 (22-28) mmol/L ABG O2 Saturation (95-98) % ABG Base Excess (-2.0-3.0) mmol/L ABG Hemoglobin (11.7-17.4) g/dL ABG Carboxyhemoglobin (0.5-1.5) % POC ABG HHb (Measured) (0.0-5.0) % ABG Methemoglobin (0.0-3.0) % Haris Test A-a O2 Difference mm/Hg Respiratory Index Hgb O2 Saturation (95.0-98.0) % Vent Mode Mechanical Rate FiO2 % Tidal Volume PEEP Sodium (132-148) mmol/L Potassium (3.6-5.2) mmol/L Chloride (98-107) mmol/L Carbon Dioxide (22-30) mmol/L Anion Gap (10-20) BUN (9-20) mg/dL Creatinine (0.8-1.5) mg/dL Est GFR ( Amer) Est GFR (Non-Af Amer) POC Glucose (mg/dL) (65-110) mg/dL Random Glucose (75-110) mg/dL Calcium (8.6-10.4) mg/dl Phosphorus (2.5-4.5) mg/dL Magnesium (1.6-2.3) mg/dL Total Bilirubin (0.2-1.3) mg/dL AST (17-59) U/L ALT (21-72) U/L Alkaline Phosphatase (38-126) U/L Total Protein (6.3-8.3) g/dL Albumin (3.5-5.0) g/dL Globulin (2.2-3.9) gm/dL Albumin/Globulin Ratio (1.0-2.1) Urine Color (YELLOW) Urine Clarity (Clear) Urine pH (5.0-8.0) Ur Specific [place] (1.003-1.030) Urine Protein (NEGATIVE) mg/dL Urine Glucose (UA) (Normal) mg/dL Urine Ketones (NEGATIVE) mg/dL Urine Blood (NEGATIVE) Urine Nitrate (NEGATIVE) Urine Bilirubin (NEGATIVE) Urine Urobilinogen (0.2-1.0) mg/dL Ur Leukocyte Esterase (Negative) Chao/uL Urine WBC (Auto) (0-5) /hpf Urine RBC (Auto) (0-3) /hpf Ur Squamous Epith Cells (0-5) /hpf Urine Bacteria (<OCC) Vancomycin Trough (5.0-10.0) ug/mL Hepatitis A IgM Ab (NEGATIVE) Hep Bs Antigen (NEGATIVE) Hep B Core IgM Ab (NEGATIVE) Hepatitis C Antibody (NEGATIVE) Laboratory Results - last 24 hr 08/16/17 08/16/17 08/16/17 05:46 10:55 11:42 WBC RBC Hgb Hct MCV MCH MCHC RDW Plt Count MPV Neut % (Auto) Lymph % (Auto) [place] % (Auto) Eos % (Auto) Baso % (Auto) Neut # (Auto) Lymph # (Auto) [place] # (Auto) Eos # (Auto) Baso # (Auto) Neutrophils % (Manual) 64 Band Neutrophils % 20 H* Lymphocytes % (Manual) 6 L Monocytes % (Manual) 10 Eosinophils % (Manual) Platelet Estimate Normal Hypochromasia (manual) Slight Poikilocytosis (manual Slight Anisocytosis (manual) Slight Puncture Site pCO2 pO2 HCO3 ABG pH ABG Total CO2 ABG O2 Saturation ABG Base Excess ABG Hemoglobin ABG Carboxyhemoglobin POC ABG HHb (Measured) ABG Methemoglobin Haris Test A-a O2 Difference Respiratory Index Hgb O2 Saturation Vent Mode Mechanical Rate FiO2 Tidal Volume PEEP Sodium Potassium Chloride Carbon Dioxide Anion Gap BUN Creatinine Est GFR ( Amer) Est GFR (Non-Af Amer) POC Glucose (mg/dL) 81 Random Glucose Calcium Phosphorus Magnesium Total Bilirubin AST ALT Alkaline Phosphatase Total Protein Albumin Globulin Albumin/Globulin Ratio Urine Color Urine Clarity Urine pH Ur Specific [place] Urine Protein Urine Glucose (UA) Urine Ketones Urine Blood Urine Nitrate Urine Bilirubin Urine Urobilinogen Ur Leukocyte Esterase Urine WBC (Auto) Urine RBC (Auto) Ur Squamous Epith Cells Urine Bacteria Vancomycin Trough Hepatitis A IgM Ab Negative Hep Bs Antigen Negative Hep B Core IgM Ab Negative Hepatitis C Antibody Negative 08/16/17 08/16/17 08/16/17 17:40 22:18 23:28 WBC RBC Hgb Hct MCV MCH MCHC RDW Plt Count MPV Neut % (Auto) Lymph % (Auto) [place] % (Auto) Eos % (Auto) Baso % (Auto) Neut # (Auto) Lymph # (Auto) [place] # (Auto) Eos # (Auto) Baso # (Auto) Neutrophils % (Manual) Band Neutrophils % Lymphocytes % (Manual) Monocytes % (Manual) Eosinophils % (Manual) Platelet Estimate Hypochromasia (manual) Poikilocytosis (manual Anisocytosis (manual) Puncture Site pCO2 pO2 HCO3 ABG pH ABG Total CO2 ABG O2 Saturation ABG Base Excess ABG Hemoglobin ABG Carboxyhemoglobin POC ABG HHb (Measured) ABG Methemoglobin Haris Test A-a O2 Difference Respiratory Index Hgb O2 Saturation Vent Mode Mechanical Rate FiO2 Tidal Volume PEEP Sodium Potassium Chloride Carbon Dioxide Anion Gap BUN Creatinine Est GFR ( Amer) Est GFR (Non-Af Amer) POC Glucose (mg/dL) 92 91 Random Glucose Calcium Phosphorus Magnesium Total Bilirubin AST ALT Alkaline Phosphatase Total Protein Albumin Globulin Albumin/Globulin Ratio Urine Color Yellow Urine Clarity Clear Urine pH 5.0 Ur Specific [place] 1.023 Urine Protein Negative Urine Glucose (UA) Normal Urine Ketones Negative Urine Blood Negative Urine Nitrate Negative Urine Bilirubin Negative Urine Urobilinogen Normal Ur Leukocyte Esterase Neg Urine WBC (Auto) 1 Urine RBC (Auto) < 1 Ur Squamous Epith Cells < 1 Urine Bacteria Rare Vancomycin Trough Hepatitis A IgM Ab Hep Bs Antigen Hep B Core IgM Ab Hepatitis C Antibody 08/17/17 08/17/17 08/17/17 01:44 01:44 01:44 WBC 16.5 H RBC 3.86 L Hgb 10.9 L Hct 32.9 L MCV 85.4 MCH 28.2 MCHC 33.0 RDW 14.0 Plt Count 211 MPV 8.5 Neut % (Auto) 86.4 H Lymph % (Auto) 7.0 L [place] % (Auto) 4.0 Eos % (Auto) 2.1 Baso % (Auto) 0.5 Neut # (Auto) 14.3 H Lymph # (Auto) 1.2 [place] # (Auto) 0.7 Eos # (Auto) 0.3 Baso # (Auto) 0.1 Neutrophils % (Manual) 62 Band Neutrophils % 16 H* Lymphocytes % (Manual) 8 L Monocytes % (Manual) 9 Eosinophils % (Manual) 5 H Platelet Estimate Normal Hypochromasia (manual) Poikilocytosis (manual Anisocytosis (manual) Puncture Site pCO2 pO2 HCO3 ABG pH ABG Total CO2 ABG O2 Saturation ABG Base Excess ABG Hemoglobin ABG Carboxyhemoglobin POC ABG HHb (Measured) ABG Methemoglobin Haris Test A-a O2 Difference Respiratory Index Hgb O2 Saturation Vent Mode Mechanical Rate FiO2 Tidal Volume PEEP Sodium 143 Potassium 4.0 Chloride 110 H Carbon Dioxide 27 Anion Gap 10 BUN 18 Creatinine 1.1 Est GFR ( Amer) > 60 Est GFR (Non-Af Amer) > 60 POC Glucose (mg/dL) Random Glucose 110 Calcium 8.1 L Phosphorus 2.0 L Magnesium 2.3 Total Bilirubin 0.7 AST 20 ALT 34 Alkaline Phosphatase 83 Total Protein 7.0 Albumin 3.0 L Globulin 3.9 Albumin/Globulin Ratio 0.8 L Urine Color Urine Clarity Urine pH Ur Specific [place] Urine Protein Urine Glucose (UA) Urine Ketones Urine Blood Urine Nitrate Urine Bilirubin Urine Urobilinogen Ur Leukocyte Esterase Urine WBC (Auto) Urine RBC (Auto) Ur Squamous Epith Cells Urine Bacteria Vancomycin Trough 10.3 H Hepatitis A IgM Ab Hep Bs Antigen Hep B Core IgM Ab Hepatitis C Antibody 08/17/17 05:20 WBC RBC Hgb Hct MCV MCH MCHC RDW Plt Count MPV Neut % (Auto) Lymph % (Auto) [place] % (Auto) Eos % (Auto) Baso % (Auto) Neut # (Auto) Lymph # (Auto) [place] # (Auto) Eos # (Auto) Baso # (Auto) Neutrophils % (Manual) Band Neutrophils % Lymphocytes % (Manual) Monocytes % (Manual) Eosinophils % (Manual) Platelet Estimate Hypochromasia (manual) Poikilocytosis (manual Anisocytosis (manual) Puncture Site Rr pCO2 45 pO2 85 HCO3 25.8 ABG pH 7.38 ABG Total CO2 28.0 ABG O2 Saturation 98.6 H ABG Base Excess 1.1 ABG Hemoglobin 10.9 L ABG Carboxyhemoglobin 1.9 H POC ABG HHb (Measured) 1.4 ABG Methemoglobin 1.0 Haris Test Pos A-a O2 Difference 144.0 Respiratory Index 1.7 Hgb O2 Saturation 95.7 Vent Mode Prvc Mechanical Rate 20 FiO2 40.0 Tidal Volume 450 PEEP 5 Sodium Potassium Chloride Carbon Dioxide Anion Gap BUN Creatinine Est GFR ( Amer) Est GFR (Non-Af Amer) POC Glucose (mg/dL) Random Glucose Calcium Phosphorus Magnesium Total Bilirubin AST ALT Alkaline Phosphatase Total Protein Albumin Globulin Albumin/Globulin Ratio Urine Color Urine Clarity Urine pH Ur Specific [place] Urine Protein Urine Glucose (UA) Urine Ketones Urine Blood Urine Nitrate Urine Bilirubin Urine Urobilinogen Ur Leukocyte Esterase Urine WBC (Auto) Urine RBC (Auto) Ur Squamous Epith Cells Urine Bacteria Vancomycin Trough Hepatitis A IgM Ab Hep Bs Antigen Hep B Core IgM Ab Hepatitis C Antibody Fingerstick Blood Sugar Results: 103 Critical Care Progress Note - Nutrition Nutrition: Nutrition Category Date Time Status NPO Diet [DIET] Diets 08/15/17 Breakfast Active Assessment/Plan - Assessment and Plan (Free Text) Assessment: Patient is a 21 year old male with history of substance abuse presents with acute hypoxemic hypercapnic respiratory failure likely secondary to drug overdose, aspiration pneumonia. Plan: Neurology: -Patient is intubated, off sedation, on CPAP trial -Alert, awake, Responds to verbal stimuli, moving extremities -Possible extubation today -CT head negative -UDS positive for cannabinoids, opiates Cardiology: -No acute issues at this time Respiratory: -Intubated and off sedation, CPAP trial in progress -CXR 08/17: mild improvement in bilateral pulmonary infiltrates (see full report) -CXR 08/16: mild improvement in bilateral pulmonary opacity. Resolving pneumonia versus improving pulmonary edema -CXR 08/15: interval placement of nasogastric tube. persistent diffuse reticular airpsace opacities throughout both lungs -CT chest showed bilateral nodular parenchymal infiltrates and dense consolidation within posterior right more than left upper lobe and bilateral lobes representing pneumonia versus edema versus a combination of both processes. Moderate bilateral pleural effusions -Urine legionella, mycoplasma negative -S pneumo pending GI: -CT abd/pelvis showed no acute abnormality -Continue tube feeds via NGT -Pepcid 20mg IVP Q12H Renal: -Patient presented with LOGAN on admission -Renal function improved -Will monitor electrolytes Infectious Disease -Stable, afebrile -Leukocytosis 16.5, Bandemia 16 -Antibiotics: Vancomycin 1gm Q12H, Zosyn 3.375g Q6H; discontinued Doxycycline 100mg Q12H -Lower Extremity CT showed no soft tissues abscess identified. Bony lie cysts noted at distal tibial fixation plate (see full report) -Elevated Procal 60.35 -Blood cx showing no growth for 24 hours x 2 -Urine cultures showing no growth -Right lower extremity wound cultures growing staph aureus, f/u sensitivities -Ankle X ray: s/p ORIF distal tibia and fibula -Infectious disease consulted, will f/u recommendations Musculoskeletal: -Podiatry on consult, help appreciated -For wound, Continue medihoney, cover with thick bulky dressing -Venous dopplers: no evidence of deep or superficial vein thrombosis of the right or left lower extremity. -Patient with Right arm swelling, right upper extremity venous duplex ordered GI/DVT ppx -Continue Pepcid 20mg Q12H IVP -Heparin 5000 units Q8H SC Plan discussed with Dr Carrera <Pa Carrera S - Last Filed: 08/17/17 17:06> CCU Objective - Vital Signs / Intake & Output Vital Signs (Last 4 hours): Vital Signs Pulse Resp BP Pulse Ox 08/17/17 16:08 74 23 119/68 94 L 08/17/17 16:00 64 27 H 98 08/17/17 15:09 65 28 H 127/62 92 L 08/17/17 15:00 75 26 H 92 L 08/17/17 14:09 96 H 18 128/62 93 L 08/17/17 14:00 87 24 95 Intake and Output (Last 8hrs): Intake & Output 08/17/17 08/17/17 08/17/17 06:59 14:59 22:59 Intake Total 1204.5 860 150 Output Total 625 525 150 Balance 579.5 335 0 Weight 222 lb 3.2 oz Intake: IV 100 85 Intake, IV Amount 904.5 700 150 Left Antecubital 712.5 700 150 Right Antecubital 192 0 Oral 50 Tube Feeding 200 25 Output: Urine 625 525 150 Urethral (Liang) 625 525 150 - Medications Active Medications: Active Medications Generic Name Dose Route Start Last Admin Trade Name Freq PRN Reason Stop Dose Admin Acetaminophen 650 mg 08/15/17 08:17 Tylenol 650 Mg Supp [place] Q6 PRN Temperature Famotidine 20 mg 08/15/17 00:45 08/17/17 10:16 Pepcid IVP 20 mg Q12 ZAINA Administration Heparin Sodium (Porcine) 5,000 units 08/15/17 00:45 08/17/17 14:00 Heparin SC 5,000 units Q8 ZAINA Administration Propofol 1,000 mg in 100 mls @ 7.2 mls/hr 08/14/17 23:56 08/17/17 07:10 Diprivan IV 0 mcg/kg/min .[id number] PRN 0 mls/hr TITRATE PER MD ORDER Titration Protocol 15 MCG/KG/MIN Piperacillin Sod/Tazobactam Sod 3.375 gm in 50 mls @ 100 mls/hr 08/15/17 07: 00 08/17/17 12:02 Zosyn 3.375 Gm Iv Premix IVPB 100 mls/hr Q6H ZAINA Administration Protocol Vancomycin/Sodium Chloride 1 gm in 200 mls @ 133.333 mls/hr 08/15/17 13:00 12:00 Vancomycin 1 Gm/Ns 200 Ml IVPB 08/20/17 13:01 133.333 mls/hr Q12H ZAINA Administration Protocol Sodium Chloride 1,000 mls @ 75 mls/hr 08/15/17 10:00 08/17/17 02:51 Sodium Chloride 0.9% IV 75 mls/hr .[id number] ZAINA Administration Ondansetron HCl 4 mg 08/17/17 12:19 Zofran Inj IVP Q4H PRN Nausea/Vomiting - Patient Studies Lab Studies: Microbiology Studies 08/15/17 11:02 Gram Stain - Final Leg - Right Wound Culture - Final Staphylococcus Aureus 08/15/17 00:13 Gram Stain - Final Leg - Right Wound Culture - Final Staphylococcus Aureus 08/15/17 09:49 Gram Stain - Final Trachasp Sputum Culture - Final NORMAL ORAL ASHLEE 08/15/17 00:00 Blood Culture - Preliminary Blood NO GROWTH AFTER 48 HOURS 08/15/17 02:30 Blood Culture - Preliminary Blood NO GROWTH AFTER 48 HOURS 08/15/17 01:14 MRSA Culture (Admit) - Final Nose MRSA NOT DETECTED 08/15/17 Unknown Urine Culture - Final Urine,Catheterized No Growth (<1,000 CFU/ML) Lab Studies 08/17/17 08/17/17 08/17/17 Range/Units 11:48 05:20 01:44 WBC (4.8-10.8) K/uL RBC (4.40-5.90) Mil/uL Hgb (12.0-18.0) g/dL Hct (35.0-51.0) % MCV (80.0-94.0) fL MCH (27.0-31.0) pg MCHC (33.0-37.0) g/dL RDW (11.5-14.5) % Plt Count (130-400) K/uL MPV (7.2-11.7) fL Neut % (Auto) (50.0-75.0) % Lymph % (Auto) (20.0-40.0) % [place] % (Auto) (0.0-10.0) % Eos % (Auto) (0.0-4.0) % Baso % (Auto) (0.0-2.0) % Neut # (Auto) (1.8-7.0) K/uL Lymph # (Auto) (1.0-4.3) K/uL [place] # (Auto) (0.0-0.8) K/uL Eos # (Auto) (0.0-0.7) K/uL Baso # (Auto) (0.0-0.2) K/uL Neutrophils % (Manual) (50-75) % Band Neutrophils % (0-2) % Lymphocytes % (Manual) (20-40) % Monocytes % (Manual) (0-10) % Eosinophils % (Manual) (0-4) % Platelet Estimate (NORMAL) Puncture Site Rr pCO2 45 (35-45) mm/Hg pO2 85 (80-100) mm/Hg HCO3 25.8 (21-28) mmol/L ABG pH 7.38 (7.35-7.45) ABG Total CO2 28.0 (22-28) mmol/L ABG O2 Saturation 98.6 H (95-98) % ABG Base Excess 1.1 (-2.0-3.0) mmol/L ABG Hemoglobin 10.9 L (11.7-17.4) g/dL ABG Carboxyhemoglobin 1.9 H (0.5-1.5) % POC ABG HHb (Measured) 1.4 (0.0-5.0) % ABG Methemoglobin 1.0 (0.0-3.0) % Haris Test Pos A-a O2 Difference 144.0 mm/Hg Respiratory Index 1.7 Hgb O2 Saturation 95.7 (95.0-98.0) % Vent Mode Prvc Mechanical Rate 20 FiO2 40.0 % Tidal Volume 450 PEEP 5 Sodium 143 (132-148) mmol/L Potassium 4.0 (3.6-5.2) mmol/L Chloride 110 H (98-107) mmol/L Carbon Dioxide 27 (22-30) mmol/L Anion Gap 10 (10-20) BUN 18 (9-20) mg/dL Creatinine 1.1 (0.8-1.5) mg/dL Est GFR ( Amer) > 60 Est GFR (Non-Af Amer) > 60 POC Glucose (mg/dL) 103 (65-110) mg/dL Random Glucose 110 (75-110) mg/dL Calcium 8.1 L (8.6-10.4) mg/dl Phosphorus 2.0 L (2.5-4.5) mg/dL Magnesium 2.3 (1.6-2.3) mg/dL Total Bilirubin 0.7 (0.2-1.3) mg/dL AST 20 (17-59) U/L ALT 34 (21-72) U/L Alkaline Phosphatase 83 (38-126) U/L Total Protein 7.0 (6.3-8.3) g/dL Albumin 3.0 L (3.5-5.0) g/dL Globulin 3.9 (2.2-3.9) gm/dL Albumin/Globulin Ratio 0.8 L (1.0-2.1) Urine Color (YELLOW) Urine Clarity (Clear) Urine pH (5.0-8.0) Ur Specific [place] (1.003-1.030) Urine Protein (NEGATIVE) mg/dL Urine Glucose (UA) (Normal) mg/dL Urine Ketones (NEGATIVE) mg/dL Urine Blood (NEGATIVE) Urine Nitrate (NEGATIVE) Urine Bilirubin (NEGATIVE) Urine Urobilinogen (0.2-1.0) mg/dL Ur Leukocyte Esterase (Negative) Chao/uL Urine WBC (Auto) (0-5) /hpf Urine RBC (Auto) (0-3) /hpf Ur Squamous Epith Cells (0-5) /hpf Urine Bacteria (<OCC) Vancomycin Trough (5.0-10.0) ug/mL 08/17/17 08/17/17 08/16/17 Range/Units 01:44 01:44 23:28 WBC 16.5 H (4.8-10.8) K/uL RBC 3.86 L (4.40-5.90) Mil/uL Hgb 10.9 L (12.0-18.0) g/dL Hct 32.9 L (35.0-51.0) % MCV 85.4 (80.0-94.0) fL MCH 28.2 (27.0-31.0) pg MCHC 33.0 (33.0-37.0) g/dL RDW 14.0 (11.5-14.5) % Plt Count 211 (130-400) K/uL MPV 8.5 (7.2-11.7) fL Neut % (Auto) 86.4 H (50.0-75.0) % Lymph % (Auto) 7.0 L (20.0-40.0) % [place] % (Auto) 4.0 (0.0-10.0) % Eos % (Auto) 2.1 (0.0-4.0) % Baso % (Auto) 0.5 (0.0-2.0) % Neut # (Auto) 14.3 H (1.8-7.0) K/uL Lymph # (Auto) 1.2 (1.0-4.3) K/uL [place] # (Auto) 0.7 (0.0-0.8) K/uL Eos # (Auto) 0.3 (0.0-0.7) K/uL Baso # (Auto) 0.1 (0.0-0.2) K/uL Neutrophils % (Manual) 62 (50-75) % Band Neutrophils % 16 H* (0-2) % Lymphocytes % (Manual) 8 L (20-40) % Monocytes % (Manual) 9 (0-10) % Eosinophils % (Manual) 5 H (0-4) % Platelet Estimate Normal (NORMAL) Puncture Site pCO2 (35-45) mm/Hg pO2 (80-100) mm/Hg HCO3 (21-28) mmol/L ABG pH (7.35-7.45) ABG Total CO2 (22-28) mmol/L ABG O2 Saturation (95-98) % ABG Base Excess (-2.0-3.0) mmol/L ABG Hemoglobin (11.7-17.4) g/dL ABG Carboxyhemoglobin (0.5-1.5) % POC ABG HHb (Measured) (0.0-5.0) % ABG Methemoglobin (0.0-3.0) % Haris Test A-a O2 Difference mm/Hg Respiratory Index Hgb O2 Saturation (95.0-98.0) % Vent Mode Mechanical Rate FiO2 % Tidal Volume PEEP Sodium (132-148) mmol/L Potassium (3.6-5.2) mmol/L Chloride (98-107) mmol/L Carbon Dioxide (22-30) mmol/L Anion Gap (10-20) BUN (9-20) mg/dL Creatinine (0.8-1.5) mg/dL Est GFR ( Amer) Est GFR (Non-Af Amer) POC Glucose (mg/dL) 91 (65-110) mg/dL Random Glucose (75-110) mg/dL Calcium (8.6-10.4) mg/dl Phosphorus (2.5-4.5) mg/dL Magnesium (1.6-2.3) mg/dL Total Bilirubin (0.2-1.3) mg/dL AST (17-59) U/L ALT (21-72) U/L Alkaline Phosphatase (38-126) U/L Total Protein (6.3-8.3) g/dL Albumin (3.5-5.0) g/dL Globulin (2.2-3.9) gm/dL Albumin/Globulin Ratio (1.0-2.1) Urine Color (YELLOW) Urine Clarity (Clear) Urine pH (5.0-8.0) Ur Specific [place] (1.003-1.030) Urine Protein (NEGATIVE) mg/dL Urine Glucose (UA) (Normal) mg/dL Urine Ketones (NEGATIVE) mg/dL Urine Blood (NEGATIVE) Urine Nitrate (NEGATIVE) Urine Bilirubin (NEGATIVE) Urine Urobilinogen (0.2-1.0) mg/dL Ur Leukocyte Esterase (Negative) Chao/uL Urine WBC (Auto) (0-5) /hpf Urine RBC (Auto) (0-3) /hpf Ur Squamous Epith Cells (0-5) /hpf Urine Bacteria (<OCC) Vancomycin Trough 10.3 H (5.0-10.0) ug/mL 08/16/17 08/16/17 Range/Units 22:18 17:40 WBC (4.8-10.8) K/uL RBC (4.40-5.90) Mil/uL Hgb (12.0-18.0) g/dL Hct (35.0-51.0) % MCV (80.0-94.0) fL MCH (27.0-31.0) pg MCHC (33.0-37.0) g/dL RDW (11.5-14.5) % Plt Count (130-400) K/uL MPV (7.2-11.7) fL Neut % (Auto) (50.0-75.0) % Lymph % (Auto) (20.0-40.0) % [place] % (Auto) (0.0-10.0) % Eos % (Auto) (0.0-4.0) % Baso % (Auto) (0.0-2.0) % Neut # (Auto) (1.8-7.0) K/uL Lymph # (Auto) (1.0-4.3) K/uL [place] # (Auto) (0.0-0.8) K/uL Eos # (Auto) (0.0-0.7) K/uL Baso # (Auto) (0.0-0.2) K/uL Neutrophils % (Manual) (50-75) % Band Neutrophils % (0-2) % Lymphocytes % (Manual) (20-40) % Monocytes % (Manual) (0-10) % Eosinophils % (Manual) (0-4) % Platelet Estimate (NORMAL) Puncture Site pCO2 (35-45) mm/Hg pO2 (80-100) mm/Hg HCO3 (21-28) mmol/L ABG pH (7.35-7.45) ABG Total CO2 (22-28) mmol/L ABG O2 Saturation (95-98) % ABG Base Excess (-2.0-3.0) mmol/L ABG Hemoglobin (11.7-17.4) g/dL ABG Carboxyhemoglobin (0.5-1.5) % POC ABG HHb (Measured) (0.0-5.0) % ABG Methemoglobin (0.0-3.0) % Haris Test A-a O2 Difference mm/Hg Respiratory Index Hgb O2 Saturation (95.0-98.0) % Vent Mode Mechanical Rate FiO2 % Tidal Volume PEEP Sodium (132-148) mmol/L Potassium (3.6-5.2) mmol/L Chloride (98-107) mmol/L Carbon Dioxide (22-30) mmol/L Anion Gap (10-20) BUN (9-20) mg/dL Creatinine (0.8-1.5) mg/dL Est GFR ( Amer) Est GFR (Non-Af Amer) POC Glucose (mg/dL) 92 (65-110) mg/dL Random Glucose (75-110) mg/dL Calcium (8.6-10.4) mg/dl Phosphorus (2.5-4.5) mg/dL Magnesium (1.6-2.3) mg/dL Total Bilirubin (0.2-1.3) mg/dL AST (17-59) U/L ALT (21-72) U/L Alkaline Phosphatase (38-126) U/L Total Protein (6.3-8.3) g/dL Albumin (3.5-5.0) g/dL Globulin (2.2-3.9) gm/dL Albumin/Globulin Ratio (1.0-2.1) Urine Color Yellow (YELLOW) Urine Clarity Clear (Clear) Urine pH 5.0 (5.0-8.0) Ur Specific [place] 1.023 (1.003-1.030) Urine Protein Negative (NEGATIVE) mg/dL Urine Glucose (UA) Normal (Normal) mg/dL Urine Ketones Negative (NEGATIVE) mg/dL Urine Blood Negative (NEGATIVE) Urine Nitrate Negative (NEGATIVE) Urine Bilirubin Negative (NEGATIVE) Urine Urobilinogen Normal (0.2-1.0) mg/dL Ur Leukocyte Esterase Neg (Negative) Chao/uL Urine WBC (Auto) 1 (0-5) /hpf Urine RBC (Auto) < 1 (0-3) /hpf Ur Squamous Epith Cells < 1 (0-5) /hpf Urine Bacteria Rare (<OCC) Vancomycin Trough (5.0-10.0) ug/mL Laboratory Results - last 24 hr 08/16/17 08/16/17 08/16/17 17:40 22:18 23:28 WBC RBC Hgb Hct MCV MCH MCHC RDW Plt Count MPV Neut % (Auto) Lymph % (Auto) [place] % (Auto) Eos % (Auto) Baso % (Auto) Neut # (Auto) Lymph # (Auto) [place] # (Auto) Eos # (Auto) Baso # (Auto) Neutrophils % (Manual) Band Neutrophils % Lymphocytes % (Manual) Monocytes % (Manual) Eosinophils % (Manual) Platelet Estimate Puncture Site pCO2 pO2 HCO3 ABG pH ABG Total CO2 ABG O2 Saturation ABG Base Excess ABG Hemoglobin ABG Carboxyhemoglobin POC ABG HHb (Measured) ABG Methemoglobin Haris Test A-a O2 Difference Respiratory Index Hgb O2 Saturation Vent Mode Mechanical Rate FiO2 Tidal Volume PEEP Sodium Potassium Chloride Carbon Dioxide Anion Gap BUN Creatinine Est GFR ( Amer) Est GFR (Non-Af Amer) POC Glucose (mg/dL) 92 91 Random Glucose Calcium Phosphorus Magnesium Total Bilirubin AST ALT Alkaline Phosphatase Total Protein Albumin Globulin Albumin/Globulin Ratio Urine Color Yellow Urine Clarity Clear Urine pH 5.0 Ur Specific [place] 1.023 Urine Protein Negative Urine Glucose (UA) Normal Urine Ketones Negative Urine Blood Negative Urine Nitrate Negative Urine Bilirubin Negative Urine Urobilinogen Normal Ur Leukocyte Esterase Neg Urine WBC (Auto) 1 Urine RBC (Auto) < 1 Ur Squamous Epith Cells < 1 Urine Bacteria Rare Vancomycin Trough 08/17/17 08/17/17 08/17/17 01:44 01:44 01:44 WBC 16.5 H RBC 3.86 L Hgb 10.9 L Hct 32.9 L MCV 85.4 MCH 28.2 MCHC 33.0 RDW 14.0 Plt Count 211 MPV 8.5 Neut % (Auto) 86.4 H Lymph % (Auto) 7.0 L [place] % (Auto) 4.0 Eos % (Auto) 2.1 Baso % (Auto) 0.5 Neut # (Auto) 14.3 H Lymph # (Auto) 1.2 [place] # (Auto) 0.7 Eos # (Auto) 0.3 Baso # (Auto) 0.1 Neutrophils % (Manual) 62 Band Neutrophils % 16 H* Lymphocytes % (Manual) 8 L Monocytes % (Manual) 9 Eosinophils % (Manual) 5 H Platelet Estimate Normal Puncture Site pCO2 pO2 HCO3 ABG pH ABG Total CO2 ABG O2 Saturation ABG Base Excess ABG Hemoglobin ABG Carboxyhemoglobin POC ABG HHb (Measured) ABG Methemoglobin Haris Test A-a O2 Difference Respiratory Index Hgb O2 Saturation Vent Mode Mechanical Rate FiO2 Tidal Volume PEEP Sodium 143 Potassium 4.0 Chloride 110 H Carbon Dioxide 27 Anion Gap 10 BUN 18 Creatinine 1.1 Est GFR ( Amer) > 60 Est GFR (Non-Af Amer) > 60 POC Glucose (mg/dL) Random Glucose 110 Calcium 8.1 L Phosphorus 2.0 L Magnesium 2.3 Total Bilirubin 0.7 AST 20 ALT 34 Alkaline Phosphatase 83 Total Protein 7.0 Albumin 3.0 L Globulin 3.9 Albumin/Globulin Ratio 0.8 L Urine Color Urine Clarity Urine pH Ur Specific [place] Urine Protein Urine Glucose (UA) Urine Ketones Urine Blood Urine Nitrate Urine Bilirubin Urine Urobilinogen Ur Leukocyte Esterase Urine WBC (Auto) Urine RBC (Auto) Ur Squamous Epith Cells Urine Bacteria Vancomycin Trough 10.3 H 08/17/17 08/17/17 05:20 11:48 WBC RBC Hgb Hct MCV MCH MCHC RDW Plt Count MPV Neut % (Auto) Lymph % (Auto) [place] % (Auto) Eos % (Auto) Baso % (Auto) Neut # (Auto) Lymph # (Auto) [place] # (Auto) Eos # (Auto) Baso # (Auto) Neutrophils % (Manual) Band Neutrophils % Lymphocytes % (Manual) Monocytes % (Manual) Eosinophils % (Manual) Platelet Estimate Puncture Site Rr pCO2 45 pO2 85 HCO3 25.8 ABG pH 7.38 ABG Total CO2 28.0 ABG O2 Saturation 98.6 H ABG Base Excess 1.1 ABG Hemoglobin 10.9 L ABG Carboxyhemoglobin 1.9 H POC ABG HHb (Measured) 1.4 ABG Methemoglobin 1.0 Haris Test Pos A-a O2 Difference 144.0 Respiratory Index 1.7 Hgb O2 Saturation 95.7 Vent Mode Prvc Mechanical Rate 20 FiO2 40.0 Tidal Volume 450 PEEP 5 Sodium Potassium Chloride Carbon Dioxide Anion Gap BUN Creatinine Est GFR ( Amer) Est GFR (Non-Af Amer) POC Glucose (mg/dL) 103 Random Glucose Calcium Phosphorus Magnesium Total Bilirubin AST ALT Alkaline Phosphatase Total Protein Albumin Globulin Albumin/Globulin Ratio Urine Color Urine Clarity Urine pH Ur Specific [place] Urine Protein Urine Glucose (UA) Urine Ketones Urine Blood Urine Nitrate Urine Bilirubin Urine Urobilinogen Ur Leukocyte Esterase Urine WBC (Auto) Urine RBC (Auto) Ur Squamous Epith Cells Urine Bacteria Vancomycin Trough Critical Care Progress Note - Nutrition Nutrition: Nutrition Category Date Time Status Liquid Diet [DIET] Diets 08/17/17 Lunch Active Attending/Attestation - Attestation I have personally seen and examined this patient.: Yes I have fully participated in the care of the patient.: Yes I have reviewed all pertinent clinical information: Yes Notes (Text): 08/17/17 17:06 patient seen and examined in the intensive care unit. Case discussed with staff in the morning. Patient extubated after weaning trial Resolving pneumonia on chest x-ray Continue antibiotics swallowing evaluation Continue present treatment for now Follow-up chest x-ray and ABG
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
[2017-08-18] MEDS: Vancomycin 1 gm/NS 200 ml 1 GM/200 ML BAG IVPB SCH ×2 (00:30→13:28)
[2017-08-18] MEDS: Sodium Chloride 0.9% 1,000 ML IV SCH (05:15)
[2017-08-18] MEDS: Piperacill/Tazo 3.375gm in Dex 3.375 GM/50 ML BAG IVPB SCH ×4 (06:00→18:24)
[2017-08-18 06:24] LABS: BASO # 0.1 K/uL (0.0-0.2); BASO % 0.4 % (0.0-2.0); EOS # 0.6 K/uL (0.0-0.7); EOS % 3.6 % (0.0-4.0); HEMOGLOBIN 10.4 g/dL (12.0-18.0); LYMPH # 1.8 K/uL (1.0-4.3); LYMPH % 10.6 % (20.0-40.0); MEAN CELL VOLUME 84.6 fL (80.0-94.0); MEAN CORPUSCULAR HEMOGLOBIN 28.4 pg (27.0-31.0); MEAN CORPUSCULAR HGB CONC 33.6 g/dL (33.0-37.0); MEAN PLATELET VOLUME 8.6 fL (7.2-11.7); MONO # 1.1 K/uL (0.0-0.8); MONO % 6.3 % (0.0-10.0); NEUT # 13.3 K/uL (1.8-7.0); NEUT % 79.1 % (50.0-75.0); RBC 3.66 Mil/uL (4.40-5.90); RED CELL DISTRIBUTION WIDTH 13.8 % (11.5-14.5); WHITE BLOOD COUNT 16.8 K/uL (4.8-10.8)
[2017-08-18 06:34] LABS: ALB/GLOB RATIO 0.7 (1.0-2.1); ALBUMIN 2.8 g/dL (3.5-5.0); ALT/SGPT 22 U/L (21-72); AST/SGOT 17 U/L (17-59); BLOOD UREA NITROGEN 13 mg/dL (9-20); CALCIUM 7.8 mg/dl (8.6-10.4); GFR AFRICAN-AMERICAN > 60; GFR NON-AFRICAN AMERICAN > 60
--- NOTE | 2017-08-18 07:16 | CP.CCUPN ---
<Bam Purvis - Last Filed: 08/18/17 13:56> CCU Objective - Vital Signs / Intake & Output Vital Signs (Last 4 hours): Vital Signs Pulse Resp BP Pulse Ox 08/18/17 12:09 62 33 H 135/70 99 08/18/17 12:00 83 22 98 08/18/17 11:09 59 L 35 H 137/65 94 L 08/18/17 11:00 58 L 33 H 98 08/18/17 10:09 60 27 H 130/63 08/18/17 10:00 61 22 Intake and Output (Last 8hrs): Intake & Output 08/17/17 08/18/17 08/18/17 22:59 06:59 14:59 Intake Total 700 600 500 Output Total 470 440 400 Balance 230 160 100 Weight 486 lb 186 lb Intake: Intake, IV Amount 600 600 300 Left Antecubital 600 600 300 Left Wrist 0 0 Oral 100 200 Output: Urine 470 440 400 Urethral (Brady) 470 440 400 Other: # Voids Urethral (Brady) 0 - Medications Active Medications: Active Medications Generic Name Dose Route Start Last Admin Trade Name Freq PRN Reason Stop Dose Admin Acetaminophen 650 mg 08/15/17 08:17 Tylenol 650 Mg Supp DC Q6 PRN Temperature Albuterol/Ipratropium 3 ml 08/18/17 14:00 08/18/17 13:37 Duoneb 3 Mg/0.5 Mg (3 Ml) Ud INH 3 ml RQ6 ZAINA Administration Docusate Sodium 100 mg 08/18/17 18:00 Colace PO BID ZAINA Famotidine 20 mg 08/15/17 00:45 08/18/17 10:39 Pepcid IVP 20 mg Q12 ZAINA Administration Heparin Sodium (Porcine) 5,000 units 08/18/17 14:00 08/18/17 13:28 Heparin SC 5,000 units Q8 ZAINA Administration Piperacillin Sod/Tazobactam Sod 3.375 gm in 50 mls @ 100 mls/hr 08/15/17 07: 00 08/18/17 13:28 Zosyn 3.375 Gm Iv Premix IVPB 100 mls/hr Q6H ZAINA Administration Protocol Vancomycin/Sodium Chloride 1 gm in 200 mls @ 133.333 mls/hr 08/15/17 13:00 13:28 Vancomycin 1 Gm/Ns 200 Ml IVPB 08/20/17 13:01 133.333 mls/hr Q12H ZAINA Administration Protocol Ondansetron HCl 4 mg 08/17/17 12:19 Zofran Inj IVP Q4H PRN Nausea/Vomiting - Patient Studies Lab Studies: Microbiology Studies 08/15/17 00:00 Blood Culture - Preliminary Blood NO GROWTH AFTER 3 DAYS 08/15/17 02:30 Blood Culture - Preliminary Blood NO GROWTH AFTER 3 DAYS 08/15/17 11:02 Gram Stain - Final Leg - Right Wound Culture - Final Staphylococcus Aureus 08/15/17 00:13 Gram Stain - Final Leg - Right Wound Culture - Final Staphylococcus Aureus 08/15/17 09:49 Gram Stain - Final Trachasp Sputum Culture - Final NORMAL ORAL ASHLEE Lab Studies 08/18/17 08/18/17 08/18/17 Range/Units 06:12 06:10 06:10 WBC 16.8 H (4.8-10.8) K/uL RBC 3.66 L (4.40-5.90) Mil/uL Hgb 10.4 L (12.0-18.0) g/dL Hct 31.0 L (35.0-51.0) % MCV 84.6 (80.0-94.0) fL MCH 28.4 (27.0-31.0) pg MCHC 33.6 (33.0-37.0) g/dL RDW 13.8 (11.5-14.5) % Plt Count 214 (130-400) K/uL MPV 8.6 (7.2-11.7) fL Neut % (Auto) 79.1 H (50.0-75.0) % Lymph % (Auto) 10.6 L (20.0-40.0) % [place] % (Auto) 6.3 (0.0-10.0) % Eos % (Auto) 3.6 (0.0-4.0) % Baso % (Auto) 0.4 (0.0-2.0) % Neut # (Auto) 13.3 H (1.8-7.0) K/uL Lymph # (Auto) 1.8 (1.0-4.3) K/uL [place] # (Auto) 1.1 H (0.0-0.8) K/uL Eos # (Auto) 0.6 (0.0-0.7) K/uL Baso # (Auto) 0.1 (0.0-0.2) K/uL Sodium (132-148) mmol/L Potassium (3.6-5.2) mmol/L Chloride (98-107) mmol/L Carbon Dioxide (22-30) mmol/L Anion Gap (10-20) BUN (9-20) mg/dL Creatinine (0.8-1.5) mg/dL Est GFR ( Amer) Est GFR (Non-Af Amer) POC Glucose (mg/dL) (65-110) mg/dL Random Glucose (75-110) mg/dL Calcium (8.6-10.4) mg/dl Phosphorus (2.5-4.5) mg/dL Magnesium (1.6-2.3) mg/dL Total Bilirubin (0.2-1.3) mg/dL AST (17-59) U/L ALT (21-72) U/L Alkaline Phosphatase (38-126) U/L Total Protein (6.3-8.3) g/dL Albumin (3.5-5.0) g/dL Globulin (2.2-3.9) gm/dL Albumin/Globulin Ratio (1.0-2.1) Procalcitonin 17.66 H (0.19-0.49) NG/ML Vancomycin Trough 15.6 H (5.0-10.0) ug/mL Ur Strep pneumoniae Ag 08/18/17 08/17/17 08/17/17 Range/Units 06:10 23:40 17:39 WBC (4.8-10.8) K/uL RBC (4.40-5.90) Mil/uL Hgb (12.0-18.0) g/dL Hct (35.0-51.0) % MCV (80.0-94.0) fL MCH (27.0-31.0) pg MCHC (33.0-37.0) g/dL RDW (11.5-14.5) % Plt Count (130-400) K/uL MPV (7.2-11.7) fL Neut % (Auto) (50.0-75.0) % Lymph % (Auto) (20.0-40.0) % [place] % (Auto) (0.0-10.0) % Eos % (Auto) (0.0-4.0) % Baso % (Auto) (0.0-2.0) % Neut # (Auto) (1.8-7.0) K/uL Lymph # (Auto) (1.0-4.3) K/uL [place] # (Auto) (0.0-0.8) K/uL Eos # (Auto) (0.0-0.7) K/uL Baso # (Auto) (0.0-0.2) K/uL Sodium 143 (132-148) mmol/L Potassium 3.7 (3.6-5.2) mmol/L Chloride 108 H (98-107) mmol/L Carbon Dioxide 25 (22-30) mmol/L Anion Gap 13 (10-20) BUN 13 (9-20) mg/dL Creatinine 1.0 (0.8-1.5) mg/dL Est GFR ( Amer) > 60 Est GFR (Non-Af Amer) > 60 POC Glucose (mg/dL) 94 80 (65-110) mg/dL Random Glucose 90 (75-110) mg/dL Calcium 7.8 L (8.6-10.4) mg/dl Phosphorus 3.6 (2.5-4.5) mg/dL Magnesium 1.9 (1.6-2.3) mg/dL Total Bilirubin 1.1 (0.2-1.3) mg/dL AST 17 (17-59) U/L ALT 22 (21-72) U/L Alkaline Phosphatase 97 (38-126) U/L Total Protein 6.8 (6.3-8.3) g/dL Albumin 2.8 L (3.5-5.0) g/dL Globulin 4.0 H (2.2-3.9) gm/dL Albumin/Globulin Ratio 0.7 L (1.0-2.1) Procalcitonin (0.19-0.49) NG/ML Vancomycin Trough (5.0-10.0) ug/mL Ur Strep pneumoniae Ag 08/15/17 Range/Units 12:21 WBC (4.8-10.8) K/uL RBC (4.40-5.90) Mil/uL Hgb (12.0-18.0) g/dL Hct (35.0-51.0) % MCV (80.0-94.0) fL MCH (27.0-31.0) pg MCHC (33.0-37.0) g/dL RDW (11.5-14.5) % Plt Count (130-400) K/uL MPV (7.2-11.7) fL Neut % (Auto) (50.0-75.0) % Lymph % (Auto) (20.0-40.0) % [place] % (Auto) (0.0-10.0) % Eos % (Auto) (0.0-4.0) % Baso % (Auto) (0.0-2.0) % Neut # (Auto) (1.8-7.0) K/uL Lymph # (Auto) (1.0-4.3) K/uL [place] # (Auto) (0.0-0.8) K/uL Eos # (Auto) (0.0-0.7) K/uL Baso # (Auto) (0.0-0.2) K/uL Sodium (132-148) mmol/L Potassium (3.6-5.2) mmol/L Chloride (98-107) mmol/L Carbon Dioxide (22-30) mmol/L Anion Gap (10-20) BUN (9-20) mg/dL Creatinine (0.8-1.5) mg/dL Est GFR ( Amer) Est GFR (Non-Af Amer) POC Glucose (mg/dL) (65-110) mg/dL Random Glucose (75-110) mg/dL Calcium (8.6-10.4) mg/dl Phosphorus (2.5-4.5) mg/dL Magnesium (1.6-2.3) mg/dL Total Bilirubin (0.2-1.3) mg/dL AST (17-59) U/L ALT (21-72) U/L Alkaline Phosphatase (38-126) U/L Total Protein (6.3-8.3) g/dL Albumin (3.5-5.0) g/dL Globulin (2.2-3.9) gm/dL Albumin/Globulin Ratio (1.0-2.1) Procalcitonin (0.19-0.49) NG/ML Vancomycin Trough (5.0-10.0) ug/mL Ur Strep pneumoniae Ag Not detected Laboratory Results - last 24 hr 08/15/17 08/17/17 08/17/17 12:21 17:39 23:40 WBC RBC Hgb Hct MCV MCH MCHC RDW Plt Count MPV Neut % (Auto) Lymph % (Auto) [place] % (Auto) Eos % (Auto) Baso % (Auto) Neut # (Auto) Lymph # (Auto) [place] # (Auto) Eos # (Auto) Baso # (Auto) Sodium Potassium Chloride Carbon Dioxide Anion Gap BUN Creatinine Est GFR ( Amer) Est GFR (Non-Af Amer) POC Glucose (mg/dL) 80 94 Random Glucose Calcium Phosphorus Magnesium Total Bilirubin AST ALT Alkaline Phosphatase Total Protein Albumin Globulin Albumin/Globulin Ratio Procalcitonin Vancomycin Trough Ur Strep pneumoniae Ag Not detected 08/18/17 08/18/17 08/18/17 06:10 06:10 06:10 WBC RBC Hgb Hct MCV MCH MCHC RDW Plt Count MPV Neut % (Auto) Lymph % (Auto) [place] % (Auto) Eos % (Auto) Baso % (Auto) Neut # (Auto) Lymph # (Auto) [place] # (Auto) Eos # (Auto) Baso # (Auto) Sodium 143 Potassium 3.7 Chloride 108 H Carbon Dioxide 25 Anion Gap 13 BUN 13 Creatinine 1.0 Est GFR ( Amer) > 60 Est GFR (Non-Af Amer) > 60 POC Glucose (mg/dL) Random Glucose 90 Calcium 7.8 L Phosphorus 3.6 Magnesium 1.9 Total Bilirubin 1.1 AST 17 ALT 22 Alkaline Phosphatase 97 Total Protein 6.8 Albumin 2.8 L Globulin 4.0 H Albumin/Globulin Ratio 0.7 L Procalcitonin 17.66 H Vancomycin Trough 15.6 H Ur Strep pneumoniae Ag 08/18/17 06:12 WBC 16.8 H RBC 3.66 L Hgb 10.4 L Hct 31.0 L MCV 84.6 MCH 28.4 MCHC 33.6 RDW 13.8 Plt Count 214 MPV 8.6 Neut % (Auto) 79.1 H Lymph % (Auto) 10.6 L [place] % (Auto) 6.3 Eos % (Auto) 3.6 Baso % (Auto) 0.4 Neut # (Auto) 13.3 H Lymph # (Auto) 1.8 [place] # (Auto) 1.1 H Eos # (Auto) 0.6 Baso # (Auto) 0.1 Sodium Potassium Chloride Carbon Dioxide Anion Gap BUN Creatinine Est GFR ( Amer) Est GFR (Non-Af Amer) POC Glucose (mg/dL) Random Glucose Calcium Phosphorus Magnesium Total Bilirubin AST ALT Alkaline Phosphatase Total Protein Albumin Globulin Albumin/Globulin Ratio Procalcitonin Vancomycin Trough Ur Strep pneumoniae Ag Critical Care Progress Note - Nutrition Nutrition: Nutrition Category Date Time Status Regular Diet [DIET] Diets 08/18/17 Lunch Active Attending/Attestation - Attestation I have personally seen and examined this patient.: Yes I have fully participated in the care of the patient.: Yes I have reviewed all pertinent clinical information: Yes Notes (Text): I have seen and examined the patient. Medical records, lab studies, and imaging were reviewed by me and a management plan was formulated on multidisciplinary rounds with resident Dr. Licona. I agree with their documented assessment and plan. Patient shows significant atelectasis bilaterally, incentive spirometer. Patient's pneumonia possibly improved, but difficult to assess beneath the atelectasis. Possible other source of infection is osteomyelitis, obtaining tagged WBC scan ([facility] WBC scan). Continue current abx regimen, Zosyn and CASSY Potter - Dr. Vernon. Critical Care Time 35 minutes. Multi-disciplinary rounds were performed with house staff, nursing, speech therapy, respiratory therapy, pharmacy and nutrition with integrated input from the primary team/attending and other consulting services. The documented time is cumulative and includes review of patient data/exams/labs/chart review and examination of the patient on rounds and throughout the day; time is exclusive of any procedures or teaching time. <Janet Licona - Last Filed: 08/18/17 16:36> CCU Subjective - Physician Review Subjective (Free Text): 08/18/17 07:16 Patient seen and examined at bedside. Per nursing no acute events overnight. Patient is doing well, offers no complaints at this time. He was extubated yesterday. CXR this morning showing worsening of bilateral pulmonary infiltrates. Denies headaches, dizziness, cp, palpitations, sob, abdominal pain , urinary symptoms. CCU Objective - Vital Signs / Intake & Output Intake and Output (Last 8hrs): Intake & Output 08/17/17 08/18/17 08/18/17 22:59 06:59 14:59 Intake Total 700 325 Output Total 250 Balance 450 325 Intake: Intake, IV Amount 600 325 Left Antecubital 600 325 Left Wrist 0 0 Oral 100 Output: Urine 250 Urethral (Brady) 250 - Physical Exam Other physical findings (Free Text): - Constitutional Appears: Non-toxic, no acute distress - Head Exam Head Exam: NORMAL INSPECTION - Eye Exam Eye Exam: EOMI, PERRL - ENT Exam ENT Exam: Mucous Membranes Moist - Respiratory Exam Respiratory Exam: Decreased Breath Sounds, Rales, Rhonchi - GI/Abdominal Exam GI & Abdominal Exam: Soft, Normal Bowel Sounds. absent: Distended, Firm, Guarding, Rigid, Rebound - Extremities Exam Extremities Exam: Pedal Edema, Tenderness Additional comments: prevalon boots, Right ankle dressing intact, +RLE edema, +right arm swelling - Neurological Exam Neurological Exam: Awake, alert, moves extremities - Skin Skin Exam: Normal Color, Warm - Medications Active Medications: Active Medications Generic Name Dose Route Start Last Admin Trade Name Freq PRN Reason Stop Dose Admin Acetaminophen 650 mg 08/15/17 08:17 Tylenol 650 Mg Supp DC Q6 PRN Temperature Famotidine 20 mg 08/15/17 00:45 08/17/17 21:33 Pepcid IVP 20 mg Q12 ZAINA Administration Piperacillin Sod/Tazobactam Sod 3.375 gm in 50 mls @ 100 mls/hr 08/15/17 07: 00 08/18/17 06:00 Zosyn 3.375 Gm Iv Premix IVPB 100 mls/hr Q6H ZAINA Administration Protocol Vancomycin/Sodium Chloride 1 gm in 200 mls @ 133.333 mls/hr 08/15/17 13:00 00:30 Vancomycin 1 Gm/Ns 200 Ml IVPB 08/20/17 13:01 133.333 mls/hr Q12H ZAINA Administration Protocol Sodium Chloride 1,000 mls @ 75 mls/hr 08/15/17 10:00 08/18/17 05:15 Sodium Chloride 0.9% IV 75 mls/hr .[id number] ZAINA Administration Ondansetron HCl 4 mg 08/17/17 12:19 Zofran Inj IVP Q4H PRN Nausea/Vomiting - Patient Studies Lab Studies: Microbiology Studies 08/15/17 11:02 Gram Stain - Final Leg - Right Wound Culture - Final Staphylococcus Aureus 08/15/17 00:13 Gram Stain - Final Leg - Right Wound Culture - Final Staphylococcus Aureus 08/15/17 09:49 Gram Stain - Final Trachasp Sputum Culture - Final NORMAL ORAL ASHLEE 08/15/17 00:00 Blood Culture - Preliminary Blood NO GROWTH AFTER 48 HOURS 08/15/17 02:30 Blood Culture - Preliminary Blood NO GROWTH AFTER 48 HOURS Lab Studies 08/18/17 08/18/17 08/18/17 Range/Units 06:12 06:10 06:10 WBC 16.8 H (4.8-10.8) K/uL RBC 3.66 L (4.40-5.90) Mil/uL Hgb 10.4 L (12.0-18.0) g/dL Hct 31.0 L (35.0-51.0) % MCV 84.6 (80.0-94.0) fL MCH 28.4 (27.0-31.0) pg MCHC 33.6 (33.0-37.0) g/dL RDW 13.8 (11.5-14.5) % Plt Count 214 (130-400) K/uL MPV 8.6 (7.2-11.7) fL Neut % (Auto) 79.1 H (50.0-75.0) % Lymph % (Auto) 10.6 L (20.0-40.0) % [place] % (Auto) 6.3 (0.0-10.0) % Eos % (Auto) 3.6 (0.0-4.0) % Baso % (Auto) 0.4 (0.0-2.0) % Neut # (Auto) 13.3 H (1.8-7.0) K/uL Lymph # (Auto) 1.8 (1.0-4.3) K/uL [place] # (Auto) 1.1 H (0.0-0.8) K/uL Eos # (Auto) 0.6 (0.0-0.7) K/uL Baso # (Auto) 0.1 (0.0-0.2) K/uL Sodium 143 (132-148) mmol/L Potassium 3.7 (3.6-5.2) mmol/L Chloride 108 H (98-107) mmol/L Carbon Dioxide 25 (22-30) mmol/L Anion Gap 13 (10-20) BUN 13 (9-20) mg/dL Creatinine 1.0 (0.8-1.5) mg/dL Est GFR ( Amer) > 60 Est GFR (Non-Af Amer) > 60 POC Glucose (mg/dL) (65-110) mg/dL Random Glucose 90 (75-110) mg/dL Calcium 7.8 L (8.6-10.4) mg/dl Phosphorus 3.6 (2.5-4.5) mg/dL Magnesium 1.9 (1.6-2.3) mg/dL Total Bilirubin 1.1 (0.2-1.3) mg/dL AST 17 (17-59) U/L ALT 22 (21-72) U/L Alkaline Phosphatase 97 (38-126) U/L Total Protein 6.8 (6.3-8.3) g/dL Albumin 2.8 L (3.5-5.0) g/dL Globulin 4.0 H (2.2-3.9) gm/dL Albumin/Globulin Ratio 0.7 L (1.0-2.1) Vancomycin Trough 15.6 H (5.0-10.0) ug/mL Ur Strep pneumoniae Ag 08/17/17 08/17/17 08/17/17 Range/Units 23:40 17:39 11:48 WBC (4.8-10.8) K/uL RBC (4.40-5.90) Mil/uL Hgb (12.0-18.0) g/dL Hct (35.0-51.0) % MCV (80.0-94.0) fL MCH (27.0-31.0) pg MCHC (33.0-37.0) g/dL RDW (11.5-14.5) % Plt Count (130-400) K/uL MPV (7.2-11.7) fL Neut % (Auto) (50.0-75.0) % Lymph % (Auto) (20.0-40.0) % [place] % (Auto) (0.0-10.0) % Eos % (Auto) (0.0-4.0) % Baso % (Auto) (0.0-2.0) % Neut # (Auto) (1.8-7.0) K/uL Lymph # (Auto) (1.0-4.3) K/uL [place] # (Auto) (0.0-0.8) K/uL Eos # (Auto) (0.0-0.7) K/uL Baso # (Auto) (0.0-0.2) K/uL Sodium (132-148) mmol/L Potassium (3.6-5.2) mmol/L Chloride (98-107) mmol/L Carbon Dioxide (22-30) mmol/L Anion Gap (10-20) BUN (9-20) mg/dL Creatinine (0.8-1.5) mg/dL Est GFR ( Amer) Est GFR (Non-Af Amer) POC Glucose (mg/dL) 94 80 103 (65-110) mg/dL Random Glucose (75-110) mg/dL Calcium (8.6-10.4) mg/dl Phosphorus (2.5-4.5) mg/dL Magnesium (1.6-2.3) mg/dL Total Bilirubin (0.2-1.3) mg/dL AST (17-59) U/L ALT (21-72) U/L Alkaline Phosphatase (38-126) U/L Total Protein (6.3-8.3) g/dL Albumin (3.5-5.0) g/dL Globulin (2.2-3.9) gm/dL Albumin/Globulin Ratio (1.0-2.1) Vancomycin Trough (5.0-10.0) ug/mL Ur Strep pneumoniae Ag 08/15/17 Range/Units 12:21 WBC (4.8-10.8) K/uL RBC (4.40-5.90) Mil/uL Hgb (12.0-18.0) g/dL Hct (35.0-51.0) % MCV (80.0-94.0) fL MCH (27.0-31.0) pg MCHC (33.0-37.0) g/dL RDW (11.5-14.5) % Plt Count (130-400) K/uL MPV (7.2-11.7) fL Neut % (Auto) (50.0-75.0) % Lymph % (Auto) (20.0-40.0) % [place] % (Auto) (0.0-10.0) % Eos % (Auto) (0.0-4.0) % Baso % (Auto) (0.0-2.0) % Neut # (Auto) (1.8-7.0) K/uL Lymph # (Auto) (1.0-4.3) K/uL [place] # (Auto) (0.0-0.8) K/uL Eos # (Auto) (0.0-0.7) K/uL Baso # (Auto) (0.0-0.2) K/uL Sodium (132-148) mmol/L Potassium (3.6-5.2) mmol/L Chloride (98-107) mmol/L Carbon Dioxide (22-30) mmol/L Anion Gap (10-20) BUN (9-20) mg/dL Creatinine (0.8-1.5) mg/dL Est GFR ( Amer) Est GFR (Non-Af Amer) POC Glucose (mg/dL) (65-110) mg/dL Random Glucose (75-110) mg/dL Calcium (8.6-10.4) mg/dl Phosphorus (2.5-4.5) mg/dL Magnesium (1.6-2.3) mg/dL Total Bilirubin (0.2-1.3) mg/dL AST (17-59) U/L ALT (21-72) U/L Alkaline Phosphatase (38-126) U/L Total Protein (6.3-8.3) g/dL Albumin (3.5-5.0) g/dL Globulin (2.2-3.9) gm/dL Albumin/Globulin Ratio (1.0-2.1) Vancomycin Trough (5.0-10.0) ug/mL Ur Strep pneumoniae Ag Not detected Laboratory Results - last 24 hr 08/15/17 08/17/17 08/17/17 12:21 11:48 17:39 WBC RBC Hgb Hct MCV MCH MCHC RDW Plt Count MPV Neut % (Auto) Lymph % (Auto) [place] % (Auto) Eos % (Auto) Baso % (Auto) Neut # (Auto) Lymph # (Auto) [place] # (Auto) Eos # (Auto) Baso # (Auto) Sodium Potassium Chloride Carbon Dioxide Anion Gap BUN Creatinine Est GFR ( Amer) Est GFR (Non-Af Amer) POC Glucose (mg/dL) 103 80 Random Glucose Calcium Phosphorus Magnesium Total Bilirubin AST ALT Alkaline Phosphatase Total Protein Albumin Globulin Albumin/Globulin Ratio Vancomycin Trough Ur Strep pneumoniae Ag Not detected 08/17/17 08/18/17 08/18/17 23:40 06:10 06:10 WBC RBC Hgb Hct MCV MCH MCHC RDW Plt Count MPV Neut % (Auto) Lymph % (Auto) [place] % (Auto) Eos % (Auto) Baso % (Auto) Neut # (Auto) Lymph # (Auto) [place] # (Auto) Eos # (Auto) Baso # (Auto) Sodium 143 Potassium 3.7 Chloride 108 H Carbon Dioxide 25 Anion Gap 13 BUN 13 Creatinine 1.0 Est GFR ( Amer) > 60 Est GFR (Non-Af Amer) > 60 POC Glucose (mg/dL) 94 Random Glucose 90 Calcium 7.8 L Phosphorus 3.6 Magnesium 1.9 Total Bilirubin 1.1 AST 17 ALT 22 Alkaline Phosphatase 97 Total Protein 6.8 Albumin 2.8 L Globulin 4.0 H Albumin/Globulin Ratio 0.7 L Vancomycin Trough 15.6 H Ur Strep pneumoniae Ag 08/18/17 06:12 WBC 16.8 H RBC 3.66 L Hgb 10.4 L Hct 31.0 L MCV 84.6 MCH 28.4 MCHC 33.6 RDW 13.8 Plt Count 214 MPV 8.6 Neut % (Auto) 79.1 H Lymph % (Auto) 10.6 L [place] % (Auto) 6.3 Eos % (Auto) 3.6 Baso % (Auto) 0.4 Neut # (Auto) 13.3 H Lymph # (Auto) 1.8 [place] # (Auto) 1.1 H Eos # (Auto) 0.6 Baso # (Auto) 0.1 Sodium Potassium Chloride Carbon Dioxide Anion Gap BUN Creatinine Est GFR ( Amer) Est GFR (Non-Af Amer) POC Glucose (mg/dL) Random Glucose Calcium Phosphorus Magnesium Total Bilirubin AST ALT Alkaline Phosphatase Total Protein Albumin Globulin Albumin/Globulin Ratio Vancomycin Trough Ur Strep pneumoniae Ag Fingerstick Blood Sugar Results: 80 Critical Care Progress Note - Nutrition Nutrition: Nutrition Category Date Time Status Liquid Diet [DIET] Diets 08/17/17 Lunch Active Assessment/Plan - Assessment and Plan (Free Text) Assessment: Patient is a 21 year old male with history of substance abuse presents with acute hypoxemic hypercapnic respiratory failure likely secondary to drug overdose, aspiration pneumonia. Plan: Neurology: -Patient is AAOx3 -Extubated yesterday -PT and swallow eval ordered -CT head negative -UDS positive for cannabinoids, opiates Cardiology: -No acute issues at this time Respiratory: -Encourage ISS use -CXR 08/18: worsening bilateral pulmonary infiltrates -CXR 08/17: mild improvement in bilateral pulmonary infiltrates (see full report) -CXR 08/16: mild improvement in bilateral pulmonary opacity. Resolving pneumonia versus improving pulmonary edema -CXR 08/15: interval placement of nasogastric tube. persistent diffuse reticular airpsace opacities throughout both lungs -CT chest showed bilateral nodular parenchymal infiltrates and dense consolidation within posterior right more than left upper lobe and bilateral lobes representing pneumonia versus edema versus a combination of both processes. Moderate bilateral pleural effusions -Urine legionella, mycoplasma negative -S pneumo negative -Continue antibiotics: Vancomycin 1gm Q12H, Zosyn 3.375g Q6H GI: -CT abd/pelvis showed no acute abnormality -Diet: Liquid diet -Swallow evaluation pending -Pepcid 20mg IVP Q12H -Colace 100mg PO BID for constipation Renal: -Patient presented with LOGAN on admission -Renal function improved -Will monitor electrolytes Infectious Disease -Stable, afebrile -Leukocytosis not improving 16.8 -Antibiotics: Vancomycin 1gm Q12H, Zosyn 3.375g Q6H; discontinued Doxycycline 100mg Q12H -Lower Extremity CT showed no soft tissues abscess identified. Bony lie cysts noted at distal tibial fixation plate (see full report) -Will order Ceretec scan to evaluate for osteomyeolitis -Elevated Procal 60.35, f/u repeat procal -Blood cx showing no growth for 24 hours x 3 -Urine cultures showing no growth -Right lower extremity wound cultures growing staph aureus, sensitivities reviewed -Ankle X ray: s/p ORIF distal tibia and fibula -Infectious disease consulted, will f/u recommendations Musculoskeletal: -Podiatry on consult, help appreciated -For wound, Continue medihoney, cover with thick bulky dressing -Venous dopplers: no evidence of deep or superficial vein thrombosis of the right or left lower extremity. -Patient with Right arm swelling, right upper extremity venous duplex, showed acute superficial vein thrombosis of the right cephalic vein with severe reduction of venous return. No evidence of deep vein thrombosis of the right upper extremity with excellent venous flow (see full report) -Start Aspirin 325mg PO daily : -Patient with urinary retention yesterday, brady was re-inserted -Will discontinue brady and f/u voiding trial GI/DVT ppx -Continue Pepcid 20mg Q12H IVP -Heparin 5000 units Q8H SC
--- NOTE | 2017-08-18 09:52 | RAD ---
HISTORY: extubated, b/l infiltrates COMPARISON: 08/17/2017 FINDINGS: LUNGS: The endotracheal tube and NG tube have been removed in the interval. Interval increase coalescent airspace opacities right mid upper lung zone and more dense and confluent at each lung base. PLEURA: Bilateral pleural effusions interval change noted. No pneumothorax appreciated. CARDIOVASCULAR: Mild cardiomegaly. The faint radial lucencies bordering each right left lateral heart border left greater than right may be accentuated by the flank homogeneous opacity is present. No apical pneumothorax seen. Follow-up recommended OSSEOUS STRUCTURES: No significant abnormalities. VISUALIZED UPPER ABDOMEN: Normal. OTHER FINDINGS: None. IMPRESSION: Interval worsening bilateral pulmonary infiltrates and/or bilateral coalescent areas of pulmonary edema. Infiltrates are favored. RF interval removal of an endotracheal tube and NG tube.
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
[2017-08-18] MEDS ORDERED: Acetylcysteine 20% Inhal Soln (4ml) INH SCH (12:30)
--- NOTE | 2017-08-18 13:18 | VASCLAB ---
PROCEDURE: Right Upper Extremity Venous Duplex Exam HISTORY: Right arm swelling PRIORS: None. TECHNIQUE: Right upper extremity, internal jugular, subclavian, axillary, brachial, ulnar, radial, basilic and upper cephalic veins were evaluated. Flow was assessed with color Doppler, compressibility, assessment of phasic flow and augmentation response. Report prepared by VIVEK Hammond, RVT FINDINGS: RIGHT: 1. Internal Jugular: 1.1. Compressibility - Fully compressible: Thrombus - None : Flow - Phasic: Augmentation -Normal: Reflux - None. 2. Subclavian: 2.1. Compressibility - Fully compressible: Thrombus - None : Flow - Phasic: Augmentation -Normal: Reflux - None. 3. Axillary: 3.1. Compressibility - Fully compressible: Thrombus - None : Flow - Phasic: Augmentation -Normal: Reflux - None. 4. Brachial: 4.1. Compressibility - Fully compressible: Thrombus - None: Flow - Phasic: Augmentation -Normal: Reflux - None. 5. Ulnar: 5.1. Compressibility - Fully compressible: Thrombus - None: Flow - Phasic: Augmentation -Normal: Reflux - None. 6. Radial: 6.1. Compressibility - Fully compressible: Thrombus - None: Flow - Phasic: Augmentation - Normal: Reflux - None. 7. Cephalic: 7.1. Compressibility - Fully compressible: Thrombus - None: Flow - Phasic: Augmentation -Normal: Reflux - None. 8. Basilic: 8.1. Compressibility - Fully compressible: Thrombus - None: Flow - Phasic: Augmentation -Normal: Reflux - None. OTHER FINDINGS: Right: None. IMPRESSION: Right: Acute superficial vein thrombosis of the right cephalic vein with severe reduction of the venous return. No evidence of deep vein thrombosis of the right upper extremity with excellent venous flow. Normal valve function noted of the right side. Normal venous flow noted in the left internal jugular and left subclavian veins.
[2017-08-18] MEDS: Albuterol-Ipratrop 3 mg / 0.5 (3 ml) UD INH SCH ×2 (13:37→19:53)
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
--- NOTE | 2017-08-18 19:24 | CP.PCM.PN ---
Subjective - Date & Time of Evaluation Date of Evaluation: 08/18/17 Time of Evaluation: 02:00 - Subjective Subjective: dictated Objective - Vital Signs/Intake and Output Vital Signs (last 24 hours): Temp Pulse Resp BP Pulse Ox 99.0 F 61 34 H 145/72 100 08/18/17 16:00 08/18/17 18:09 08/18/17 18:09 08/18/17 18:09 08/18/17 18:09 Intake and Output: 08/18/17 08/19/17 18:59 06:59 Intake Total 1100 Output Total 850 Balance 250 - Medications Medications: Current Medications Acetaminophen (Tylenol 325mg Tab) 650 mg PO Q6 PRN PRN Reason: Fever >100.4 F Albuterol/Ipratropium (Duoneb 3 Mg/0.5 Mg (3 Ml) Ud) 3 ml INH RQ6 [facility] Last Admin: 08/18/17 13:37 Dose: 3 ml Aspirin (Aspirin) 325 mg PO DAILY [facility] Docusate Sodium (Colace) 100 mg PO BID [facility] Last Admin: 08/18/17 18:23 Dose: 100 mg Famotidine (Pepcid) 20 mg IVP Q12 [facility] Last Admin: 08/18/17 10:39 Dose: 20 mg Heparin Sodium (Porcine) (Heparin) 5,000 units SC Q8 [facility] Last Admin: 08/18/17 13:28 Dose: 5,000 units Piperacillin Sod/Tazobactam Sod (Zosyn 3.375 Gm Iv Premix) 3.375 gm in 50 mls @ 100 mls/hr IVPB Q6H [facility] PRN Reason: Protocol Last Admin: 08/18/17 18:24 Dose: 100 mls/hr Vancomycin/Sodium Chloride (Vancomycin 1 Gm/Ns 200 Ml) 1 gm in 200 mls @ 133.333 mls/hr IVPB Q12H [facility] PRN Reason: Protocol Stop: 08/20/17 13:01 Last Admin: 08/18/17 13:28 Dose: 133.333 mls/hr Ondansetron HCl (Zofran Inj) 4 mg IVP Q4H PRN PRN Reason: Nausea/Vomiting - Labs Labs: 08/18/17 06:12 08/18/17 06:10 PT 12.1 SECONDS (9.7-12.2) 08/14/17 23:27 INR 1.1 08/14/17 23:27 APTT 32 SECONDS (21-34) 08/14/17 23:27
--- NOTE | 2017-08-19 01:02 | PN ---
DATE: SUBJECTIVE: The patient was sleepy when I saw him and he has draining sinus on the right side, and he has a prosthetic hardware, this is coming right on the top of where the hardware is. He has had no nausea, no vomiting, no fever. He was drowsy when I saw him. OBJECTIVE: VITAL SIGNS: Show temperature of 99, pulse of 61, respirations were 34, and he still remains with shortness of breath, and saturation 100%. HEENT: Head is atraumatic. NECK: Supple. LUNGS: Have coarse breath sounds. HEART: S1 and S2 regular. ABDOMEN: Soft, nontender. No guarding, no rigidity present. EXTREMITIES: Right foot has a draining sinus from a prosthetic hardware, and it has been going on for sometime. White count is 16.8 today, it remains still elevated. BUN is 13, creatinine is 1.0. I am told he has only one kidney as reported on the CAT scan. At this time, I have left him on vancomycin and Zosyn. I also called the labs to see if any of the cephalosporins would be better choice. However, since he has this draining sinus, he probably does have osteomyelitis of the prosthetic hardware and that hardware may need to be removed. Otherwise, this sinus will never improve which is another problem. He did come in with respiratory failure. He is off the vent at this time, and x-ray did show CHF and pneumonia. We will need to improve him lung varma, and then we need to get into orthopedic surgeon to see if we can get rid of the prosthetic hardware and only then I think the sinus will close, because hardware infections are generally difficult to heal unless hardware is removed. Gregg Vernon MD
[2017-08-19] MEDS: Vancomycin 1 gm/NS 200 ml 1 GM/200 ML BAG IVPB SCH ×2 (01:05→13:44)
[2017-08-19] MEDS: Albuterol-Ipratrop 3 mg / 0.5 (3 ml) UD INH SCH ×4 (01:45→19:26)
[2017-08-19] MEDS: Piperacill/Tazo 3.375gm in Dex 3.375 GM/50 ML BAG IVPB SCH ×4 (06:00→18:37)
[2017-08-19 06:28] LABS: BASO # 0.1 K/uL (0.0-0.2); BASO % 0.5 % (0.0-2.0); EOS # 0.6 K/uL (0.0-0.7); EOS % 4.7 % (0.0-4.0); HEMOGLOBIN 11.3 g/dL (12.0-18.0); LYMPH # 1.7 K/uL (1.0-4.3); LYMPH % 13.2 % (20.0-40.0); MEAN CORPUSCULAR HGB CONC 33.4 g/dL (33.0-37.0); MEAN PLATELET VOLUME 9.1 fL (7.2-11.7); MONO # 1.1 K/uL (0.0-0.8); MONO % 8.8 % (0.0-10.0); NEUT # 9.4 K/uL (1.8-7.0); NEUT % 72.8 % (50.0-75.0); NRBC % 0.1 % (0.0-2.0); RBC 4.03 Mil/uL (4.40-5.90); RED CELL DISTRIBUTION WIDTH 13.6 % (11.5-14.5); WHITE BLOOD COUNT 12.9 K/uL (4.8-10.8)
[2017-08-19 06:41] LABS: ALB/GLOB RATIO 0.7 (1.0-2.1); ALBUMIN 3.2 g/dL (3.5-5.0); ALT/SGPT 32 U/L (21-72); AST/SGOT 19 U/L (17-59); BLOOD UREA NITROGEN 13 mg/dL (9-20); CALCIUM 8.4 mg/dl (8.6-10.4); GFR AFRICAN-AMERICAN > 60; GFR NON-AFRICAN AMERICAN > 60
--- NOTE | 2017-08-19 08:06 | RAD ---
Chest x-ray single frontal view History: Pulmonary infiltrates. Comparison: 08/18/1017 Findings: Small to moderate bilateral pleural effusions. Diffuse increased interstitial lung markings suggestive for infiltrate and or edema. More focal consolidative changes in the right midlung zone. Heart size within normal limits. Small nodular density projecting over the lateral aspect of the right upper lung zone. Impression: Small to moderate bilateral pleural effusions. Diffuse increased interstitial lung markings suggestive for infiltrate and or edema. More focal consolidative changes in the right midlung zone. Heart size within normal limits. Small nodular density projecting over the lateral aspect of the right upper lung zone.
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
[2017-08-19] MEDS ORDERED: Bisacodyl 5mg EC Tab PO ONE (11:34)
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
[2017-08-20] MEDS: Vancomycin 1 gm/NS 200 ml 1 GM/200 ML BAG IVPB SCH ×2 (00:23→13:32)
[2017-08-20] MEDS: Piperacill/Tazo 3.375gm in Dex 3.375 GM/50 ML BAG IVPB SCH ×2 (00:23→06:44)
[2017-08-20] MEDS: Albuterol-Ipratrop 3 mg / 0.5 (3 ml) UD INH SCH ×4 (01:22→19:51)
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
[2017-08-20 08:35] LABS: BASO # 0.1 K/uL (0.0-0.2); BASO % 0.4 % (0.0-2.0); EOS # 0.4 K/uL (0.0-0.7); EOS % 3.5 % (0.0-4.0); HEMOGLOBIN 11.7 g/dL (12.0-18.0); LYMPH # 1.9 K/uL (1.0-4.3); LYMPH % 15.5 % (20.0-40.0); MEAN CELL VOLUME 83.4 fL (80.0-94.0); MEAN CORPUSCULAR HEMOGLOBIN 28.2 pg (27.0-31.0); MEAN CORPUSCULAR HGB CONC 33.8 g/dL (33.0-37.0); MEAN PLATELET VOLUME 8.8 fL (7.2-11.7); MONO # 1.5 K/uL (0.0-0.8); MONO % 12.4 % (0.0-10.0); NEUT # 8.4 K/uL (1.8-7.0); NEUT % 68.2 % (50.0-75.0); RBC 4.14 Mil/uL (4.40-5.90); RED CELL DISTRIBUTION WIDTH 13.7 % (11.5-14.5); WHITE BLOOD COUNT 12.3 K/uL (4.8-10.8)
--- NOTE | 2017-08-20 08:41 | RAD ---
HISTORY: pneumonia, atelectasis COMPARISON: 08/19/2017 FINDINGS: LUNGS: Small left pleural effusion. Opacity at left base. Possible pneumonia. PLEURA: Minimal bilateral pleural effusion. No pneumothorax. CARDIOVASCULAR: Normal. OSSEOUS STRUCTURES: No significant abnormalities. VISUALIZED UPPER ABDOMEN: Normal. OTHER FINDINGS: None. IMPRESSION: Left basilar opacity. Possible pneumonia. Minimal bilateral pleural effusion.
[2017-08-20 08:47] LABS: ALB/GLOB RATIO 0.7 (1.0-2.1); ALBUMIN 3.3 g/dL (3.5-5.0); ALT/SGPT 27 U/L (21-72); AST/SGOT 19 U/L (17-59); BLOOD UREA NITROGEN 14 mg/dL (9-20); CALCIUM 8.7 mg/dl (8.6-10.4); GFR AFRICAN-AMERICAN > 60; GFR NON-AFRICAN AMERICAN > 60
[2017-08-20] MEDS: Piperacill/Tazo 2.25gm in Dex 2.25 GM/50 ML BAG IVPB SCH ×2 (10:08→18:16)
[2017-08-20] MEDS: Saccharomyces Boulardi 250 mg Cap PO SCH ×2 (10:08→18:16)
[2017-08-20] MEDS: POLYETHYLENE GLYCOL 3350 17 GM/Dose PACKET PO SCH (10:09)
[2017-08-20] MEDS: Vitamins A & D Oint UD Foilpak TOP SCH ×2 (13:32→18:17)
--- NOTE | 2017-08-20 16:10 | NM ---
PROCEDURE: Ceretec white blood of the lower extremity HISTORY: Possible osteomyeolitis of right lower extremity COMPARISON: Comparison is made to the previous CT of the right leg TECHNIQUE: Ceretec white blood cells scan was performed. 24.1 millicurie of technetium Ceretec was injected intravenously. Multiple AP oblique and posterior images of the lower extremities were obtained after 2.5 hours and after 22 hours from the radiotracer injection. FINDINGS: There is mild increased tracer accumulation at the distal anterior right Balder[place] just above the ankle which appears less conspicuous in the delayed images. Findings likely represent soft tissue infection. No definite scintigraphic evidence of osteomyelitis. IMPRESSION: No definite scintigraphic evidence of osteomyelitis. Slight increased tracer accumulation at the distal anterior lower portion of the right leg likely represent soft tissue inflammation or mild infection.
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
[2017-08-20] MEDS ORDERED: Tramadol 25 mg PO ONE (22:00)
[2017-08-21] MEDS: Albuterol-Ipratrop 3 mg / 0.5 (3 ml) UD INH SCH ×4 (01:08→19:16)
[2017-08-21] MEDS: Piperacill/Tazo 2.25gm in Dex 2.25 GM/50 ML BAG IVPB SCH ×3 (01:12→17:19)
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
[2017-08-21 08:55] LABS: BASO # 0.1 K/uL (0.0-0.2); BASO % 0.6 % (0.0-2.0); EOS # 0.3 K/uL (0.0-0.7); EOS % 3.7 % (0.0-4.0); HEMOGLOBIN 11.9 g/dL (12.0-18.0); LYMPH # 2.5 K/uL (1.0-4.3); LYMPH % 26.8 % (20.0-40.0); MEAN CELL VOLUME 83.8 fL (80.0-94.0); MEAN CORPUSCULAR HEMOGLOBIN 28.5 pg (27.0-31.0); MEAN PLATELET VOLUME 7.8 fL (7.2-11.7); MONO # 1.3 K/uL (0.0-0.8); MONO % 13.6 % (0.0-10.0); NEUT # 5.2 K/uL (1.8-7.0); NEUT % 55.3 % (50.0-75.0); RBC 4.19 Mil/uL (4.40-5.90); RED CELL DISTRIBUTION WIDTH 13.7 % (11.5-14.5); WHITE BLOOD COUNT 9.4 K/uL (4.8-10.8)
[2017-08-21] MEDS: POLYETHYLENE GLYCOL 3350 17 GM/Dose PACKET PO SCH (09:09)
[2017-08-21] MEDS: Saccharomyces Boulardi 250 mg Cap PO SCH ×2 (09:10→17:19)
[2017-08-21] MEDS: Vitamins A & D Oint UD Foilpak TOP SCH ×2 (09:10→17:19)
[2017-08-21 09:40] LABS: ALB/GLOB RATIO 0.7 (1.0-2.1); ALBUMIN 3.3 g/dL (3.5-5.0); ALT/SGPT 28 U/L (21-72); AST/SGOT 23 U/L (17-59); BLOOD UREA NITROGEN 13 mg/dL (9-20); CALCIUM 8.5 mg/dl (8.6-10.4); GFR AFRICAN-AMERICAN > 60; GFR NON-AFRICAN AMERICAN > 60
[2017-08-21] MEDS ORDERED: Potassium Chloride 20 mEq ER Tab PO ONE (10:34)
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
[2017-08-21] MEDS: Vancomycin 1 gm/NS 200 ml 1 GM/200 ML BAG IVPB SCH (15:48)
[2017-08-21] MEDS ORDERED: Tramadol 25 mg PO ONE (21:34)
[2017-08-22] MEDS: Piperacill/Tazo 2.25gm in Dex 2.25 GM/50 ML BAG IVPB SCH ×2 (01:14→09:05)
[2017-08-22] MEDS: Albuterol-Ipratrop 3 mg / 0.5 (3 ml) UD INH SCH ×3 (01:18→13:15)
[2017-08-22] MEDS: Vancomycin 1 gm/NS 200 ml 1 GM/200 ML BAG IVPB SCH (04:16)
[2017-08-22 06:27] LABS: BASO % 0.4 % (0.0-2.0); EOS # 0.3 K/uL (0.0-0.7); EOS % 3.6 % (0.0-4.0); HEMOGLOBIN 12.1 g/dL (12.0-18.0); LYMPH # 2.1 K/uL (1.0-4.3); LYMPH % 23.8 % (20.0-40.0); MEAN CORPUSCULAR HEMOGLOBIN 27.5 pg (27.0-31.0); MEAN CORPUSCULAR HGB CONC 32.7 g/dL (33.0-37.0); MEAN PLATELET VOLUME 7.9 fL (7.2-11.7); MONO # 0.9 K/uL (0.0-0.8); MONO % 10.6 % (0.0-10.0); NEUT # 5.5 K/uL (1.8-7.0); NEUT % 61.6 % (50.0-75.0); RBC 4.42 Mil/uL (4.40-5.90); RED CELL DISTRIBUTION WIDTH 13.7 % (11.5-14.5); WHITE BLOOD COUNT 8.9 K/uL (4.8-10.8)
[2017-08-22 06:45] LABS: ALB/GLOB RATIO 0.7 (1.0-2.1); ALBUMIN 3.4 g/dL (3.5-5.0); ALT/SGPT 30 U/L (21-72); AST/SGOT 22 U/L (17-59); BLOOD UREA NITROGEN 15 mg/dL (9-20); CALCIUM 8.5 mg/dl (8.6-10.4); GFR AFRICAN-AMERICAN > 60; GFR NON-AFRICAN AMERICAN > 60
--- NOTE | 2017-08-22 08:33 | RAD ---
HISTORY: pna COMPARISON: 08/20/2017 FINDINGS: LUNGS: Minimal opacity at left base improved compared to prior examination. Possible subsegmental atelectasis versus resolving infiltrate. PLEURA: No definite pleural effusion or pneumothorax. Mild elevation right hemidiaphragm, nonspecific. Lateral position of the right diaphragmatic dome suggests possible small subpulmonic pleural effusion on the right side. CARDIOVASCULAR: Normal. OSSEOUS STRUCTURES: No significant abnormalities. VISUALIZED UPPER ABDOMEN: Normal. OTHER FINDINGS: None. IMPRESSION: Possible small right subpulmonic pleural effusion. Resolving infiltrate left base versus subsegmental atelectasis.
[2017-08-22] MEDS: POLYETHYLENE GLYCOL 3350 17 GM/Dose PACKET PO SCH (10:00)
[2017-08-22] MEDS: Saccharomyces Boulardi 250 mg Cap PO SCH (10:04)
[2017-08-22] MEDS: Vitamins A & D Oint UD Foilpak TOP SCH (10:05)
[2017-08-22] MEDS ORDERED: Potassium Chloride 20 mEq/15 ml LIQ UD PO ONE (11:30)
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
[2017-08-22 14:21] VITALS: BP 125/70; PULSE 68; RESP 20; TEMP 98.6; O2SAT 97
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
== END 2017-08-22 14:00 | disposition home or self-care (01) | DRG 917 ==
LOC: C.ER 22:51 → C.9I 08-15 00:04
PROVIDERS: ADMIT Internal Medicine; ATTEND Internal Medicine
PROC: 5A1945Z Respiratory Ventilation, 24-96 Consecutive Hours (ICD-10-PCS; principal; 2017-08-14)
PROC: 0BH17EZ Insertion of Endotracheal Airway into Trachea, Via Natural or Artificial Opening (ICD-10-PCS; 2017-08-14)
PROC: 0BH17EZ Insertion of Endotracheal Airway into Trachea, Via Natural or Artificial Opening (ICD-10-PCS; 2017-08-15)
DX: T40.2X1A Poisoning by other opioids, accidental (unintentional), initial encounter (principal); J96.01 Acute respiratory failure with hypoxia; J69.0 Pneumonitis due to inhalation of food and vomit; A41.9 Sepsis, unspecified organism; J96.02 Acute respiratory failure with hypercapnia; J90 Pleural effusion, not elsewhere classified; J80 Acute respiratory distress syndrome; N17.9 Acute kidney failure, unspecified; I82.611 Acute embolism and thrombosis of superficial veins of right upper extremity; J98.11 Atelectasis; T81.4XXA Infection following a procedure, initial encounter; F17.210 Nicotine dependence, cigarettes, uncomplicated; K59.00 Constipation, unspecified; N15.9 Renal tubulo-interstitial disease, unspecified; N18.9 Chronic kidney disease, unspecified; F11.10 Opioid abuse, uncomplicated; B95.61 Methicillin susceptible Staphylococcus aureus infection as the cause of diseases classified elsewhere; Y92.009 Unspecified place in unspecified non-institutional (private) residence as the place of occurrence of the external cause; Z87.81 Personal history of (healed) traumatic fracture